=== PATIENT | female | born 1955 | race Caucasian/White ===

== ENCOUNTER → 2020-08-03 13:54 | Outpatient (BNVA) | payer MEDICARE, SELFPAY | PROVIDERS: PCP Internal Medicine; Visit Provider Nurse Practitioner Gerontology | DX: Z13.89 Encounter for screening for other disorder (principal) | CPT/HCPCS: Q3014 ==

== ENCOUNTER → 2020-11-03 10:25 | Outpatient (BNVA) | payer MEDICARE, SELFPAY | PROVIDERS: PCP Internal Medicine; Visit Provider Nurse Practitioner Gerontology ==

== ENCOUNTER 2021-04-27 11:31 | Outpatient (REF) | payer OTHER, SELFPAY ==
[2021-04-27 13:53] LABS: Creatinine Urine 59.08 mg/dL; Microalbumin Urine < 5.0 mg/L
[2021-04-27 13:57] LABS: Alanine Aminotransferase 15 U/L (0-31); Albumin Level 4.3 g/dL (3.5-5.0); Alkaline Phosphatase 70 U/L (39-117); Anion Gap 17 (12-20); Aspartate Amino Transferase 15 U/L (5-31); Bilirubin Total 0.6 mg/dL (0.0-1.0); Blood Urea Nitrogen 15 mg/dL (9-16); Calcium 9.6 mg/dL (8.4-10.2); Carbon Dioxide 33 mmol/L (22-29); Chloride 96 mmol/L (96-108); Cholesterol 160 mg/dL; Estimated Glomerular Filt Rate 48; Glucose Fasting 222 mg/dL (60-99); HDL Cholesterol 58 mg/dL; LDL Cholesterol Calculated 72 mg/dl; Sodium 142 mmol/L (135-145); Total Protein 7.5 g/dL (6.5-8.0); Triglycerides 150 mg/dL
[2021-04-27 14:07] LABS: Estimated Average Glucose 217 mg/dL; Hemoglobin A1c % 9.2 %
[2021-04-29 05:01] LABS: LDL Cholesterol Direct 71 mg/dL (<100)
== END 2021-04-27 11:32 | disposition home or self-care (01) ==
LOC: HO.LAB 11:31
PROVIDERS: PCP Internal Medicine; Visit Provider Nurse Practitioner Gerontology
DX: E11.42 Type 2 diabetes mellitus with diabetic polyneuropathy (principal)
CPT/HCPCS: 36415; 80053; 80061; 82043; 83036; 83721

== ENCOUNTER → 2021-07-02 10:50 | Outpatient (BNVA) | payer OTHER, SELFPAY | PROVIDERS: PCP Internal Medicine; Visit Provider Registered Nurse Diabetes Educator | DX: E11.42 Type 2 diabetes mellitus with diabetic polyneuropathy (principal) | CPT/HCPCS: 99211 ==

== ENCOUNTER → 2021-07-11 11:40 | Outpatient (BNVA) | payer OTHER, SELFPAY | PROVIDERS: PCP Internal Medicine; Visit Provider Nurse Practitioner Gerontology | DX: E11.42 Type 2 diabetes mellitus with diabetic polyneuropathy (principal); E78.5 Hyperlipidemia, unspecified; I10 Essential (primary) hypertension; E66.01 Morbid (severe) obesity due to excess calories; Z68.41 Body mass index [BMI] 40.0-44.9, adult | CPT/HCPCS: 82947; 99212 ==

== ENCOUNTER → 2021-08-01 10:49 | Outpatient (BNVA) | payer OTHER, SELFPAY | PROVIDERS: PCP Internal Medicine; Visit Provider Registered Nurse Diabetes Educator | DX: E11.42 Type 2 diabetes mellitus with diabetic polyneuropathy (principal) | CPT/HCPCS: Q3014 ==

== ENCOUNTER → 2021-08-22 09:01 | Outpatient (BNVA) | payer OTHER, SELFPAY | PROVIDERS: PCP Internal Medicine; Visit Provider Nurse Practitioner Gerontology | DX: E11.42 Type 2 diabetes mellitus with diabetic polyneuropathy (principal); E78.5 Hyperlipidemia, unspecified; E66.01 Morbid (severe) obesity due to excess calories; I10 Essential (primary) hypertension; Z68.41 Body mass index [BMI] 40.0-44.9, adult; Z79.4 Long term (current) use of insulin | CPT/HCPCS: Q3014 ==

== ENCOUNTER → 2021-10-18 11:35 | Outpatient (BNVA) | payer OTHER, SELFPAY | PROVIDERS: PCP Internal Medicine; Visit Provider Nurse Practitioner Gerontology | DX: E11.42 Type 2 diabetes mellitus with diabetic polyneuropathy (principal); E78.5 Hyperlipidemia, unspecified; E66.01 Morbid (severe) obesity due to excess calories; I10 Essential (primary) hypertension; Z68.41 Body mass index [BMI] 40.0-44.9, adult; Z79.4 Long term (current) use of insulin; Z79.84 Long term (current) use of oral hypoglycemic drugs | CPT/HCPCS: 82947; 83036; 99212 ==

== ENCOUNTER 2021-11-10 14:54 | Outpatient (REF) | payer OTHER, SELFPAY ==
--- NOTE | ~2021-11-10 | XR_ITS ---
EXAMINATION: XR SHOULDER, RIGHT CLINICAL INFORMATION: Pain COMPARISON: None TECHNIQUE: Three views of the right shoulder. FINDINGS: Limited views are provided. No definite acute fracture or dislocation is evident. There appears be calcific tendinitis. There is also noted to be some spurring about the acromion. No widening of the coracoclavicular space is seen. There is mild spurring of the glenohumeral joint. Calcific density is seen on Y-view just below the clavicle may be related to bursitis. XR/XR shoulder RT min 2V IMPRESSION: Limited views of the right shoulder without definite acute fracture or dislocation appreciated. Calcific tendinitis. Question calcific bursitis.
--- NOTE | ~2021-11-10 | XR_ITS ---
EXAMINATION: XR CERVICAL SPINE CLINICAL INFORMATION: Cervicalgia COMPARISON: 06/01/2019 TECHNIQUE: 3 views of the cervical spine were obtained. FINDINGS: Visualization below C4 on the lateral view is obscured by the soft tissues of the shoulder. Normal alignment with no fracture demonstrated from C1-C4. Normal alignment of the cervical spine on the AP view. Mild to moderate multilevel spondylosis. XR/XR cervical spine 3V IMPRESSION: Inadequate visualization of the cervical spine below C4. If there is concern of a fracture, a CT would be recommended. Multilevel spondylosis without significant change on the AP view.
== END 2021-11-10 14:55 | disposition home or self-care (01) ==
LOC: HO.HMGCX 14:54
PROVIDERS: PCP Internal Medicine; Visit Provider Physician Assistant Medical
DX: M25.511 Pain in right shoulder (principal); M54.2 Cervicalgia
CPT/HCPCS: 72040; 73030

== ENCOUNTER → 2022-01-09 10:26 | Outpatient (BNVA) | payer OTHER, SELFPAY | PROVIDERS: PCP Internal Medicine; Visit Provider Registered Nurse Diabetes Educator | DX: E11.42 Type 2 diabetes mellitus with diabetic polyneuropathy (principal) | CPT/HCPCS: 99211 ==

== ENCOUNTER → 2022-01-17 11:24 | Outpatient (BNVA) | payer OTHER, SELFPAY | PROVIDERS: PCP Internal Medicine; Visit Provider Nurse Practitioner Gerontology | DX: E11.42 Type 2 diabetes mellitus with diabetic polyneuropathy (principal); E78.5 Hyperlipidemia, unspecified; E66.01 Morbid (severe) obesity due to excess calories; I10 Essential (primary) hypertension; Z68.41 Body mass index [BMI] 40.0-44.9, adult | CPT/HCPCS: 82947; 83036; 99212 ==

== ENCOUNTER → 2022-04-04 12:23 | Outpatient (BNVA) | payer OTHER, SELFPAY | PROVIDERS: PCP Internal Medicine; Visit Provider Registered Nurse Diabetes Educator | DX: E11.42 Type 2 diabetes mellitus with diabetic polyneuropathy (principal) | CPT/HCPCS: 99211 ==

== ENCOUNTER 2022-08-05 10:40 | Outpatient (REF) | payer OTHER, SELFPAY ==
[2022-08-07 16:57] LABS: HPV mRNA E6/E7 rflx Not Detected (Not Detected)
== END 2022-08-05 10:41 | disposition home or self-care (01) ==
LOC: HO.LNP 10:40
PROVIDERS: PCP Internal Medicine; Visit Provider Advanced Practice Midwife
DX: Z12.4 Encounter for screening for malignant neoplasm of cervix (principal); Z11.51 Encounter for screening for human papillomavirus (HPV); N95.0 Postmenopausal bleeding
CPT/HCPCS: 58100; 87624; 88142; 88305; 99202

== ENCOUNTER 2023-02-06 10:45 | Outpatient (AMB) | payer OTHER, SELFPAY ==
[2023-02-06 10:48] VITALS: BP 126/70
--- NOTE | 2023-02-06 10:48 | MHC.OFFVIS ---
Intake Vital Signs 02/06/23 10:48 Height 5 ft 5 in BMI Reason not done Patient refused/unable BP 126/70 Intake Visit Reasons: EMB Intake Note: The patient agreed to use of a medical laboratory assistant during this encounter. Scribed for VERÓNICA Luna by Samantha English medical laboratory assistant, on 02/06/2023 at 11:04 am EST. Shale Planer Operator Helper: Shale Planer Operator Helper Present (Stephany) Accompanied by: Spouse Allergies alprazolam [From XANAX] Allergy (Unknown, Verified 02/06/23 10:48) drowsiness risperidone [From RISPERDAL] Allergy (Unknown, Verified 02/06/23 10:48) drowsiness tramadol [From ULTRAM] Allergy (Unknown, Verified 02/06/23 10:48) n/v HPI HPI Comments History of Present Illness Details The patient is here today for a repeat endometrial biopsy due to sparse sample. Reports VB every month, heavy at times Admits pelvic and bilateral groin pain. See procedure note. PFS Medical History Arthritis Asthma BMI 40.0-44.9, adult Cellulitis CHF (congestive heart failure) Chronic GERD COPD, severe Depression, major, recurrent Fibromyalgia History of hepatitis C History of opioid abuse Hyperlipidemia LDL goal <100 Hypertension, essential Lipid disorder Morbid obesity due to excess calories Oxygen dependent PMB (postmenopausal bleeding) Rheumatoid arthritis Swelling of lower extremity Type 2 diabetes mellitus with diabetic polyneuropathy Type 2 diabetes mellitus with polyneuropathy Surgical History History of section History of hip replacement Hx of mammogram Family History Father No problems noted. Mother No problems noted. Brother Diabetes Son No problems noted. Sister No problems noted. Sister No problems noted. Sister No problems noted. Daughter No problems noted. Daughter No problems noted. Social History Household Members: Spouse Housing: Apartment Alcohol intake: never Patient Tobacco Use Status: Former Tobacco user Quit Date: October 07, 2019 e-Cigarette/Vaping Use: Never Used Second Hand Smoke Exposure: Yes service: No Current occupational status: disabled Cognitive needs: Yes (wheelchair) Hearing needs: No Vision needs: No Female Reproductive History Menstrual Age of Menarche: 13 Physical Exam Vital Signs: Last Vital Signs BP 126/70 02/06/23 10:48 Const General: cooperative, no acute distress, well developed, alert, awake and other (physically uncomfortable-back and hip pain, leg cramps during exam) Resp Effort & Inspection: audible wheezes and other (02 nasal canula) GI Inspection: Yes obesity Other: General: Yes bladder normal to palpation External Female Exam: normal external appearance and normal appearance of the urethra Speculum Exam - Vagina: normal appearance of the vagina, normal palpation and vagina atrophic Speculum Exam - Cervix: normal appearance of the cervix and normal palpation Bimanual exam- vagina & uterus: normal bimanual exam, normal palpation, bladder normal to palpation and normal palpation Bimanual Exam- Adnexa, other: normal adnexae and no masses Extrem Other: limited ROM with right leg/hip. Uncomfortable positioning on table, moaning uncomfortable d/t back, hip, and knee pain. Office Procedures Endometrial Biopsy Details: Endometrial Biopsy HPI The patient is here today for an endometrial biopsy for PMB to rule out any pathology including atypical, hyperplasia or cancer cells of the uterus. She was counseled regarding anticipatory guidance for the procedure including the risks for pain, infection, bleeding, perforation, potential injury to the tissues may include the cervix, uterus, tubes, bladder and bowels. These injuries may include further treatment and evaluation including surgery, blood transfusions, antibiotics, hospitalizations and anesthesia. Permanent injury and scarring can occur. She was consented for the procedure, and the consent forms were signed. She is agreeable to have the procedure today. All questions were answered. present for the procedure. Endometrial Biopsy Procedure The patient was placed in the dorsal lithotomy position and a sterile speculum inserted. Using aseptic technique for the procedure. The cervix was cleansed with Betadine x 3 swabs A single toothed tenaculum was placed on the cervix for stabilization and the uterus was sounded to 6.5 cm with a 4mm pipelle for 2 passes. During the second pass the patient could not tolerate the rest of the procedure and asked to stop. Minimal bleeding was observed. The patient was in good condition when leaving the department. Minimal tissue sample was placed in formalin in a patient labeled container by staff assisting and sent to the pathology department for processing and interpretation. Endometrial Biopsy Post Procedure Care Schedule Pelvic US. Nothing in the vagina including: tampons, douching or sex for 3 days. There may be some post procedure bleeding for several days, this bleeding is usually light and may turn to a light brown or pink color. Mild cramps may occur. You may take an over the counter mild analgesic such as Tylenol or Advil (if no allergies) per the manufacturers recommendation on dosing, frequency, and follow the directions completely. Call the office if any: SOB, fatigue, lightheadedness/dizziness, abd. pain (worse than cramping), bloating or abd. distention, foul odor or abnormal discharge or heavy vaginal bleeding. You will be scheduled for a follow up visit for results, either in person or on the phone when the results are completed in a few weeks. [id number] Biopsy Assessment & Plan Assessment & Plan (1) History of endometrial biopsy: Code(s): Z92.89 - Personal history of other medical treatment Plan: See procedure note. (2) Postmenopausal bleeding: Code(s): N95.0 - Postmenopausal bleeding (3) Pelvic pain: Code(s): R10.2 - Pelvic and perineal pain Orders: Orders US pelvic and transvaginal Today N95.0 - Postmenopausal bleeding, R10.2 - Pelvic and perineal pain Surgical Today N95.0 - Postmenopausal bleeding Coding Level of Care Code Procedure Only Diagnoses History of endometrial biopsy Z92.89 Postmenopausal bleeding N95.0 Pelvic pain R10.2 CPT Codes Endometrial Biopsy - CPT: [id number] Biopsy ([id number])
== END 2023-02-06 11:51 | disposition home or self-care (01) ==
LOC: HO.HWS 10:45
PROVIDERS: PCP Internal Medicine; Visit Provider Advanced Practice Midwife
DX: N95.0 Postmenopausal bleeding (principal); R10.2 Pelvic and perineal pain
CPT/HCPCS: 58100

== ENCOUNTER 2023-02-06 10:45 | Outpatient (REF) | payer OTHER, SELFPAY | END 2023-02-06 10:46 | disposition home or self-care (01) | LOC: HO.LAB 10:45 | PROVIDERS: PCP Internal Medicine; Visit Provider Advanced Practice Midwife | DX: N95.0 Postmenopausal bleeding (principal); Z92.89 Personal history of other medical treatment | CPT/HCPCS: 58100; 88305 ==

== ENCOUNTER 2023-02-27 14:12 | Outpatient (REF) | payer OTHER, SELFPAY ==
--- NOTE | ~2023-02-27 | US_ITS ---
EXAMINATION: US PELVIS CLINICAL INFORMATION: Pelvic and perineal pain. COMPARISON: None available. TECHNIQUE: Ultrasound of the pelvis is performed using both transabdominal and transvaginal transducers along with Doppler. Transvaginal imaging is performed due to inadequate visualization transabdominally. FINDINGS: Limited by patient body habitus. Uterus: The uterus is anteverted and measures 6.3 x 3.1 x 4.7 cm. The endometrial stripe is poorly visualized. The uterus is smooth in contour and demonstrates persistent unremarkable myometrial echogenicity. No gross visible fibroid. Adnexa: The ovaries could not be demonstrated by the technologist. No obvious adnexal mass. No fluid identified in the cul-de-sac. US/US pelvic and transvaginal IMPRESSION: Limited study. Endometrial stripe and ovaries poorly visualized.
== END 2023-02-27 14:13 | disposition home or self-care (01) ==
LOC: HO.HMGCX 14:12
PROVIDERS: PCP Internal Medicine; Visit Provider Advanced Practice Midwife
DX: R10.2 Pelvic and perineal pain (principal); N95.0 Postmenopausal bleeding
CPT/HCPCS: 76830; 76856

== ENCOUNTER 2023-03-05 13:02 | Outpatient (AMB) | payer OTHER, SELFPAY ==
--- NOTE | 2023-03-05 13:03 | MHC.OFFVIS ---
Intake Intake Visit Reasons: TV-ultrasound results/Follow up Intake Note: [phone] The patient agreed to use of a director of graduate medical education during this encounter. Scribed for VERÓNICA Luna by Samantha English director of graduate medical education, on 03/05/2023 at 1:04 pm EST. Allergies alprazolam [From XANAX] Allergy (Unknown, Verified 03/05/23 13:03) drowsiness risperidone [From RISPERDAL] Allergy (Unknown, Verified 03/05/23 13:03) drowsiness tramadol [From ULTRAM] Allergy (Unknown, Verified 03/05/23 13:03) n/v HPI HPI Comments History of Present Illness Details Doximity live video 1:04 pm - 1:07 pm. Phone Call due to Covid-19 Pandemic. Video was utilized. She presents via phone/live video to discuss EMB results regarding PMB. She reports the bleeding is stable, not increased. [facility] Medical History Arthritis Asthma BMI 40.0-44.9, adult Cellulitis CHF (congestive heart failure) Chronic GERD COPD, severe Depression, major, recurrent Fibromyalgia History of hepatitis C History of opioid abuse Hyperlipidemia LDL goal <100 Hypertension, essential Lipid disorder Morbid obesity due to excess calories Oxygen dependent PMB (postmenopausal bleeding) Rheumatoid arthritis Swelling of lower extremity Type 2 diabetes mellitus with diabetic polyneuropathy Type 2 diabetes mellitus with polyneuropathy Surgical History History of section History of hip replacement Hx of mammogram Family History Father No problems noted. Mother No problems noted. Brother Diabetes Son No problems noted. Sister No problems noted. Sister No problems noted. Sister No problems noted. Daughter No problems noted. Daughter No problems noted. Social History Household Members: Spouse Housing: Apartment Alcohol intake: never Patient Tobacco Use Status: Former Tobacco user Quit Date: October 07, 2019 e-Cigarette/Vaping Use: Never Used Second Hand Smoke Exposure: Yes service: No Current occupational status: disabled Cognitive needs: Yes (wheelchair) Hearing needs: No Vision needs: No Female Reproductive History Menstrual Age of Menarche: 13 Physical Exam Const General: cooperative, healthy appearing, comfortable, no acute distress, well developed, alert and awake Results Reviewed Results Reviewed: Collected: 02/06/23 Location: .LAB Received: 02/07/23 Diagnosis Endometrium, biopsy:? Superficial strips of benign endometrium and squamous epithelium; no atypia identified. Clinical History PMB Microscopic Description Microscopic sections reviewed. Material Received EMB Gross Description Received in formalin labeled ?EMB? is a 1.3 x 1.2 x 0.4 cm aggregate of predominantly clear globoid mucus along with minute shards of bruce-pink tissue.? The specimen is submitted in toto in a single cassette labeled A.? Assessment & Plan Assessment & Plan (1) Encounter to discuss test results: Code(s): Z71.2 - Person consulting for explanation of examination or test findings Plan: Discussed: EMB results; benign. Due to PMB, despite a negative biopsy, she will need further evaluation and she prefer's a female provider, which is not availalbe at [facility] [place], Referral to [facility] at [facility] for female provider placed today. All of her questions and concerns were addressed to the best of my ability and shared decision making. She is agreeable to plan of care. (2) PMB (postmenopausal bleeding): Code(s): N95.0 - Postmenopausal bleeding Orders: Referrals LEARNING CENTER COORDINATOR Referral N95.0 - Postmenopausal bleeding Gynecologic Oncology Referral N95.0 - Postmenopausal bleeding Telehealth Telehealth Location of provider rendering services: practice address Location of patient: address on file Patient Identification confirmed using: Name, : Yes Telehealth method: voice only Patient verbally consented to treatment: Yes Patient verbally consented to billing insurance company: Yes Patient informed of any privacy concerns related to visit: Yes Coding Level of Care Code Tele Est Pt Level 3 (25934) Diagnoses Encounter to discuss test results Z71.2 PMB (postmenopausal bleeding) N95.0
== END 2023-03-05 14:36 | disposition home or self-care (01) ==
LOC: HO.HWS 13:02
PROVIDERS: PCP Internal Medicine; Visit Provider Advanced Practice Midwife
DX: N95.0 Postmenopausal bleeding (principal); Z71.2 Person consulting for explanation of examination or test findings
CPT/HCPCS: 99441

== ENCOUNTER → 2023-03-05 13:02 | Outpatient (BNVA) | payer OTHER, SELFPAY | PROVIDERS: PCP Internal Medicine; Visit Provider Advanced Practice Midwife ==

== ENCOUNTER 2023-03-12 13:06 | Outpatient (AMB) | payer OTHER, SELFPAY ==
--- NOTE | 2023-03-12 13:07 | A.OFFPC_ITS ---
Vital Signs 03/12/23 13:11 Height 5 ft 5 in BMI Reason not done Patient refused/unable BP 106/64 Blood Pressure Location Rt brachial Position Sitting Pulse 116 H Pulse Source Pulse Oximeter Pulse Oximetry (%) 93 Oxygen Delivery Method Room Air Intake Visit Reasons: Leg pain Allergies alprazolam [From XANAX] Allergy (Unknown, Verified 03/12/23 13:07) drowsiness risperidone [From RISPERDAL] Allergy (Unknown, Verified 03/12/23 13:07) drowsiness tramadol [From ULTRAM] Allergy (Unknown, Verified 03/12/23 13:07) n/v Medication List - Last Reconciled 03/12/23 by Veronique Rivera MD [accessible bathroom equipment Pt requires bathroom to be accessible due to decreased mobility related to diagnoses] albuterol sulfate 90 mcg/actuation 2 puffs inhalation QID PRN alcohol swabs (Easy Touch Alcohol Prep Pads) topical; atorvastatin 40 mg PO DAILY 90 days blood sugar diagnostic (FreeStyle Lite Strips) 2x/day As directed blood-glucose meter (FreeStyle Lite Meter kit) As directed buprenorphine-naloxone 8-2 mg 0 film sublingual buspirone 15 mg PO BID cholecalciferol (vitamin D3) 25 mcg PO DAILY clotrimazole-betamethasone 1-0.05 % 1 appl topical ONCE 30 days dapagliflozin propanediol (Farxiga) 5 mg PO DAILY duloxetine 30 mg PO QAM duloxetine 60 mg PO DAILY dupilumab (Dupixent) mg subcut rdlrufucjkf-kyyjcwfgh-cihjuxxb 200-62.5-25 mcg (Trelegy Ellipta) 1 ea inhalation DAILY furosemide 40 mg PO DAILY gabapentin 600 mg PO TID 30 days [hand held shower head, geriatric mode As directed] hydrochlorothiazide 25 mg PO DAILY insulin glargine (Lantus Solostar U-100 Insulin) 18 units (0.18 mL) subcut QPM 90 days ipratropium-albuterol 0.5 mg-3 mg(2.5 mg base)/3 mL mL inhalation lancets (1st Tier Unilet ComforTouch Lancet) As directed [large pull up/adult diaper Change diaper 3 times a day or as needed for inco ntinence] lorazepam 1 mg PO TID PRN melatonin 5 mg PO BEDTIME PRN 30 days metformin 1,000 mg (2 x 500 mg) PO DAILY miscellaneous medical supply As directed pantoprazole 40 mg PO DAILY 90 days pen needle, diabetic (BD Ultra-Fine Tamia Pen Needle) As directed once daily roflumilast 500 mcg PO DAILY sennosides-docusate sodium 8.6-50 mg (Senokot-S) 1 tab-cap PO BEDTIME 30 days [Shower bars As directed; shower bars ] [Shower head As directed; removable shower head/hose] [Toilet riser As directed] [Tub Bench As directed] [Walk-in shower As directed; walk in shower ] Tobacco use date assessed: 03/12/23 Last assessed Fall Risk: 03/12/23 Dental Screening Dental Screen Date: 03/12/23 Did you have a dental problem in the last 6 months where you did not have access to dental care?: No Was dental information given to patient?: No HPI Leg pain HPI Details Patient is a 67-year-old female came in today for her regular follow-up appointment Patient is mostly sedentary and comes on a wheelchair She has severe fibromyalgia and feels discomfort with slight pressure on her body Patient is complaining pain both knees she is requesting an orthopedic referral she would like to get a cortisone injection Meanwhile she is requesting few tablets of prednisone which I have sent for her. Diabetes mellitus: Hemoglobin A1c was 6.7, today it is 6.6 last visit in November, patient is on insulin glargine 18 units in the morning, he she would like to go on Ozempic injections which I have sent the smallest dozed meanwhile I have asked her to cut down glargine insulin dose to 10 units and continue to monitor the sugar. I will also book appointment with the dietitian for diabetic teachings Lipid disorder: Continue atorvastatin 40 mg Anxiety: Patient is on buspirone 15 mg b.i.d. and duloxetine high does Severe COPD: Management through litigation specialist, patient is oxygen dependent Chronic stasis dermatitis lower extremity patient is taking frusemide 40 mg which is keeping her a edema in controlled Chronic pain syndrome with multiple joint stiffness and pain, continue gabapentin 600 mg t.i.d. through PCP office, she also request prednisone every now and then because that is only medication that helps her with the joint pains Blood pressure is stable she is to continue with hydrochlorothiazide 25 mg GERD is stable with pantoprazole 40 mg Follow-up 3 months [facility] Medical History Arthritis Asthma BMI 40.0-44.9, adult Cellulitis CHF (congestive heart failure) Chronic GERD COPD, severe Depression, major, recurrent Fibromyalgia History of hepatitis C History of opioid abuse Hyperlipidemia LDL goal <100 Hypertension, essential Lipid disorder Morbid obesity due to excess calories Oxygen dependent PMB (postmenopausal bleeding) Rheumatoid arthritis Swelling of lower extremity Type 2 diabetes mellitus with diabetic polyneuropathy Type 2 diabetes mellitus with polyneuropathy Surgical History History of section History of hip replacement Hx of mammogram Family History Father No problems noted. Mother No problems noted. Brother Diabetes Son No problems noted. Sister No problems noted. Sister No problems noted. Sister No problems noted. Daughter No problems noted. Daughter No problems noted. Social History Household Members: Spouse Housing: Apartment Alcohol intake: never Patient Tobacco Use Status: Former Tobacco user Quit Date: October 07, 2019 e-Cigarette/Vaping Use: Never Used Second Hand Smoke Exposure: Yes service: No Current occupational status: disabled Cognitive needs: Yes (wheelchair) Hearing needs: No Vision needs: No Female Reproductive History Menstrual Age of Menarche: 13 Questionnaire PHQ-9 Over the last 2 weeks, how often have you been bothered by any of the following problems? 1. Little interest or pleasure in doing things: not at all 2. Feeling down, depressed, or hopeless: nearly every day 3. Trouble falling or staying asleep, or sleeping too much: not at all 4. Feeling tired or having little energy: not at all 5. Poor appetite or overeating: not at all 6. Feeling bad about yourself - or that you are a failure or have let yourself or your family down: not at all 7. Trouble concentrating on things, such as reading the newspaper or watching television: not at all 8. Moving or speaking so slowly that other people could have noticed. Or the opposite - being so fidgety or restless that you have been moving around a lot more than usual: not at all 9. Thoughts that you would be better off or of hurting yourself in some way: not at all Total score: 3 Depression Screening Interpretation: Negative 80280 - PHQ-9 Billing: Yes Source: Developed by Drs. Luis Lema, Jagruti Lovett, Rolando Romero and colleagues, with an educational tish from [employer]. Thrive Questionnaire Date Thrive assessed: 12/03/22 AUDIT C Alcohol Use Questionnaire (AUDIT-C) 1. How often do you have a drink containing alcohol?: Never 3. How often do you have six or more drinks on one occasion?: Never Total Score: 0 Score Reviewed/Action Taken: Yes WILIAM-7 AMB Questionnaire WILIAM-7 Date WILIAM - 7 assessed: 12/03/22 Source: Developed by Drs. Luis Lema, Jagruti Lovett, Rolando Romero and colleagues, with an educational tish from [employer]. Review of Systems Const Denies chills and Denies fever(s) ENT Denies epistaxis and Denies nasal discharge Card Denies chest pain Resp Denies chest congestion, Denies cough and Denies hemoptysis GI Denies diarrhea and Denies nausea Skin/Breast Denies rash Neuro Reports no additional complaints Psych Reports no additional complaints Endo Reports no additional complaints Physical exam (Primary Care) Vital Signs: Last Vital Signs Pulse 116 H 03/12/23 13:11 BP 106/64 03/12/23 13:11 Pulse Ox 93 03/12/23 13:11 Oxygen Delivery Method Room Air 03/12/23 13:11 Tobacco/Smoking Status: Tobacco use Status Tobacco use date assessed 03/12/23 03/12/23 13:11 Patient Tobacco Use Status Former Tobacco user 03/12/23 13:11 e-Cigarette/Vaping Use Never Used 03/12/23 13:11 Depression Screening Interpretation: Negative Thrive Assessment: Date of Thrive Assessment Date Thrive assessed 12/03/22 03/12/23 13:11 Const General: cooperative, comfortable and no acute distress Orientation/consciousness: patient oriented x3 HENMT Head: Yes normocephalic Eyes General: appearance normal, both eyes and all related structures Resp Other: Oxygen cannula in nose Effort & Inspection: normal respiratory effort, no cough and no stridor Cardio Rhythm: regular rhythm Heart sounds: S1 normal heart sound present and S2 normal heart sound present Skin Other: Chronic stasis dermatitis lower extremity General skin exam: turgor normal Neuro Other: Sitting in wheelchair, patient also have a body tremor which gets worse when she is anxious, more so in right hand General: patient oriented x3, tone normal and moves all extremities Extrem Other: 1+ pitting edema with chronic status dermatitis right more than left Assessment and Plan Assessment & Plan (1) Type 2 diabetes mellitus with polyneuropathy: Code(s): E11.42 - Type 2 diabetes mellitus with diabetic polyneuropathy (2) Multiple joint pain: Code(s): M25.50 - Pain in unspecified joint (3) COPD, severe: Code(s): J44.9 - Chronic obstructive pulmonary disease, unspecified (4) Venous stasis dermatitis: Code(s): I87.2 - Venous insufficiency (chronic) (peripheral) (5) Edema of both feet: Code(s): R60.0 - Localized edema (6) Difficulty walking: Code(s): R26.2 - Difficulty in walking, not elsewhere classified (7) Morbid obesity due to excess calories: Code(s): E66.01 - Morbid (severe) obesity due to excess calories (8) Hypertension, essential: Code(s): I10 - Essential (primary) hypertension (9) Lipid disorder: Code(s): E78.9 - Disorder of lipoprotein metabolism, unspecified (10) Oxygen dependent: Code(s): Z99.81 - Dependence on supplemental oxygen (11) Depression, major, recurrent: Code(s): F33.9 - Major depressive disorder, recurrent, unspecified (12) Chronic pain syndrome: Code(s): G89.4 - Chronic pain syndrome (13) Coarse tremors: Code(s): G25.2 - Other specified forms of tremor (14) Degenerative arthritis of knee, bilateral: Code(s): M17.0 - Bilateral primary osteoarthritis of knee Plan Patient is a 67-year-old female came in today for her regular follow-up appointment Patient is mostly sedentary and comes on a wheelchair She has severe fibromyalgia and feels discomfort with slight pressure on her body Patient is complaining pain both knees she is requesting an orthopedic referral she would like to get a cortisone injection Meanwhile she is requesting few tablets of prednisone which I have sent for her. Diabetes mellitus: Hemoglobin A1c was 6.7, today it is 6.6 last visit in November, patient is on insulin glargine 18 units in the morning, he she would like to go on Ozempic injections which I have sent the smallest dozed meanwhile I have asked her to cut down glargine insulin dose to 10 units and continue to monitor the sugar. I will also book appointment with the dietitian for diabetic teachings Lipid disorder: Continue atorvastatin 40 mg Anxiety: Patient is on buspirone 15 mg b.i.d. and duloxetine high does Severe COPD: Management through litigation specialist, patient is oxygen dependent Chronic stasis dermatitis lower extremity patient is taking frusemide 40 mg whic h is keeping her a edema in controlled Chronic pain syndrome with multiple joint stiffness and pain, continue gabapentin 600 mg t.i.d. through PCP office, she also request prednisone every now and then because that is only medication that helps her with the joint pains Blood pressure is stable she is to continue with hydrochlorothiazide 25 mg GERD is stable with pantoprazole 40 mg Follow-up 3 months Orders: Referrals Orthopedics Referral M17.0 - Bilateral primary osteoarthritis of knee Medications: New semaglutide (Ozempic) for 4 weeks 0.25 mg (0.368 mL) subcut QWEEK 3 mL 0RF prednisone 10 mg PO DAILY 5 days 5 tabs 0RF Coding Level of Care Code Est Pt Level 4 (47957) Diagnoses Type 2 diabetes mellitus with polyneuropathy E11.42 Multiple joint pain M25.50 COPD, severe J44.9 Venous stasis dermatitis I87.2 Edema of both feet R60.0 Difficulty walking R26.2 Morbid obesity due to excess calories E66.01 Hypertension, essential I10 Lipid disorder E78.9 Oxygen dependent Z99.81 Depression, major, recurrent F33.9 Chronic pain syndrome G89.4 Coarse tremors G25.2 Degenerative arthritis of knee, bilateral M17.0
[2023-03-12 13:11] VITALS: BP 106/64; PULSE 116; O2SAT 93
== END 2023-03-12 13:38 | disposition home or self-care (01) ==
PROVIDERS: PCP Internal Medicine; Visit Provider Internal Medicine
DX: E11.42 Type 2 diabetes mellitus with diabetic polyneuropathy (principal); J44.9 Chronic obstructive pulmonary disease, unspecified; E66.01 Morbid (severe) obesity due to excess calories; I10 Essential (primary) hypertension; F33.9 Major depressive disorder, recurrent, unspecified; M25.50 Pain in unspecified joint; I87.2 Venous insufficiency (chronic) (peripheral); R60.0 Localized edema; R26.2 Difficulty in walking, not elsewhere classified; E78.9 Disorder of lipoprotein metabolism, unspecified; Z99.81 Dependence on supplemental oxygen
CPT/HCPCS: 99214

== ENCOUNTER 2023-04-07 15:26 | Outpatient (AMB) | payer OTHER, SELFPAY ==
[2023-04-07 16:15] VITALS: BP 128/62; PULSE 79; O2SAT 94
--- NOTE | 2023-04-07 16:15 | AM.OFFWIN_ITS ---
Intake Vital Signs 04/07/23 16:15 Height 5 ft 5 in BMI Reason not done Patient refused/unable BP 128/62 Blood Pressure Location Rt brachial Position Sitting Pulse 79 Pulse Source Pulse Oximeter Pulse Oximetry (%) 94 Oxygen Delivery Method Nasal Cannula Intake Visit Reasons: EP Bilateral leg pain Intake Note: Patient is here today for bilateral leg pain, pt states it's getting worst. Patient Tobacco Use Status: Former Tobacco user Quit Date: October 07, 2019 Allergies alprazolam [From XANAX] Allergy (Unknown, Verified 04/07/23 16:44) drowsiness risperidone [From RISPERDAL] Allergy (Unknown, Verified 04/07/23 16:44) drowsiness tramadol [From ULTRAM] Allergy (Unknown, Verified 04/07/23 16:44) n/v Medication List - Last Reconciled 04/07/23 by El Cruz MD albuterol sulfate 90 mcg/actuation 2 puffs inhalation QID PRN alcohol swabs (Easy Touch Alcohol Prep Pads) topical; atorvastatin 40 mg PO DAILY 90 days blood sugar diagnostic (FreeStyle Lite Strips) 2x/day As directed blood-glucose meter (FreeStyle Lite Meter kit) As directed buprenorphine-naloxone 8-2 mg 2 film sublingually BID; +.5 (total 2.5 film) at night buspirone 15 mg PO BID clotrimazole-betamethasone 1-0.05 % 1 appl topical ONCE 30 days dapagliflozin propanediol (Farxiga) 5 mg PO DAILY duloxetine 60 mg PO DAILY duloxetine 30 mg PO QAM dupilumab (Dupixent) 200 mg subcut Q2W oujykhnlyvn-twkomjgzy-ufzmxjzs 200-62.5-25 mcg (Trelegy Ellipta) 1 ea inhalation DAILY furosemide 40 mg PO DAILY gabapentin 600 mg PO TID 30 days hydrochlorothiazide 25 mg PO DAILY insulin glargine (Lantus Solostar U-100 Insulin) 10 units subcut QPM ipratropium-albuterol 0.5 mg-3 mg(2.5 mg base)/3 mL 3 mL inhalation TID lancets (1st Tier Unilet ComforTouch Lancet) As directed lorazepam 1 mg PO TID PRN metformin 1,000 mg (2 x 500 mg) PO DAILY Oxygen Home Use 3LPM continuous via [place] pantoprazole 40 mg PO DAILY 90 days pen needle, diabetic (BD Ultra-Fine Tamia Pen Needle) As directed once daily semaglutide (Ozempic) 0.25 mg (0.368 mL) subcut QWEEK sennosides-docusate sodium 8.6-50 mg (Senokot-S) 1 tab-cap PO BEDTIME 30 days [X-Large pull up/adult diaper Change diaper 3 times a day or as needed for incontinence] Do you need a note to return to daycare/school/sports/work: No HPI EP Bilateral leg pain HPI Details 67-year-old female presents to the [facility], [place] for a sick visit. She comes in a wheelchair. She is accompanied by a male attendant. Patient is complaining of pain in right and left legs. This has been going on intermittently for for the past few months. She has sharp pain behind the knee and times. She has been wheelchair-bound for the last couple months. Because of the pain in the knee she ambulates very little. [facility] Medical History Arthritis Asthma BMI 40.0-44.9, adult Cellulitis CHF (congestive heart failure) Chronic GERD COPD, severe Depression, major, recurrent Fibromyalgia History of hepatitis C History of opioid abuse Hyperlipidemia LDL goal <100 Hypertension, essential Lipid disorder Morbid obesity due to excess calories Oxygen dependent PMB (postmenopausal bleeding) Rheumatoid arthritis Swelling of lower extremity Type 2 diabetes mellitus with diabetic polyneuropathy Type 2 diabetes mellitus with polyneuropathy Surgical History History of section History of hip replacement Hx of mammogram Family History Father No problems noted. Mother No problems noted. Brother Diabetes Son No problems noted. Sister No problems noted. Sister No problems noted. Sister No problems noted. Daughter No problems noted. Daughter No problems noted. Social History Household Members: Spouse Housing: Apartment Alcohol intake: never Patient Tobacco Use Status: Former Tobacco user Quit Date: October 07, 2019 e-Cigarette/Vaping Use: Never Used Second Hand Smoke Exposure: Yes service: No Current occupational status: disabled Cognitive needs: Yes (wheelchair) Hearing needs: No Vision needs: No Female Reproductive History Menstrual Age of Menarche: 13 Physical Exam Vital Signs: Last Vital Signs Pulse 79 04/07/23 16:15 BP 128/62 04/07/23 16:15 Pulse Ox 94 04/07/23 16:15 Oxygen Delivery Method Nasal Cannula 04/07/23 16:15 Const General: cooperative and healthy appearing Nutritional Appearance: well nourished Orientation/consciousness: patient oriented x3 Limitations: no limitations HEENT Head: Yes normal to inspection Eyes General: appearance normal, both eyes and all related structures Neck Neck: Yes normal visual inspection Chest Chest palpation & inspection: normal palpation of entire chest wall Resp Effort & Inspection: normal respiratory effort Neuro General: patient oriented x3 Extrem Other: Right and left lower extremity: Erythematous area over the curran, indurated edema. Assessment & Plan Assessment & Plan (1) Deep vein thrombosis: Code(s): I82.409 - Acute embolism and thrombosis of unspecified deep veins of unspecified lower extremity (2) Cellulitis of leg without foot: Code(s): L03.119 - Cellulitis of unspecified part of limb Plan: Antibiotic and meloxicam called in. Patient was advised to keep the foot elevated. Plan Ultrasound of the leg ordered. Will call with the results. Orders: Orders US venous duplex LE RT Today I82.409 - Acute embolism and thrombosis of unspecified deep veins of unspecified lower extremity Coding Level of Care Code Est Pt Level 4 (92812) Diagnoses Deep vein thrombosis I82.409 Cellulitis of leg without foot L03.119
== END 2023-04-07 17:15 | disposition home or self-care (01) ==
PROVIDERS: PCP Internal Medicine; Visit Provider Internal Medicine
DX: I82.409 Acute embolism and thrombosis of unspecified deep veins of unspecified lower extremity (principal); L03.119 Cellulitis of unspecified part of limb
CPT/HCPCS: 99214

== ENCOUNTER 2023-04-08 15:07 | Outpatient (REF) | payer OTHER, SELFPAY ==
--- NOTE | ~2023-04-08 | US_ITS ---
EXAMINATION: US VENOUS ULTRASOUND WITH DOPPLER LOWER EXTREMITY, RIGHT CLINICAL INFORMATION: Right leg edema and discoloration COMPARISON: None available. TECHNIQUE: Ultrasound of the deep veins is performed from the hip to the calf with compression sonography and color and pulse Doppler assessment. Spectral analysis with color-flow imaging is performed. FINDINGS: There is normal venous compression and respiratory variation and augmented flow. The visualized common femoral vein, superficial femoral vein, profunda femoral vein, popliteal vein, and the trifurcation region shows no evidence of deep venous thrombosis. There is no significant popliteal fossa cyst. If the patient's symptoms persist, followup ultrasound in 5 days 7 days might be of value to exclude proximal propagation from a non-visualized calf vein. 3.2 x 2.1 x 0.5 cm right groin lymph node is seen. US/US venous duplex LE RT IMPRESSION: No DVT demonstrated in the right lower extremity.
== END 2023-04-08 15:08 | disposition home or self-care (01) ==
LOC: HO.HMGCX 15:07
PROVIDERS: PCP Internal Medicine; Visit Provider Internal Medicine
DX: I82.401 Acute embolism and thrombosis of unspecified deep veins of right lower extremity (principal)
CPT/HCPCS: 93971

== ENCOUNTER 2023-04-21 14:46 | Outpatient (AMB) | payer OTHER, SELFPAY ==
--- NOTE | 2023-04-21 14:55 | MHC.OFFWIV ---
Intake Vital Signs 04/21/23 14:56 Height 5 ft 5 in BMI Reason not done Patient refused/unable BP 128/78 Blood Pressure Location Rt brachial Position Sitting Pulse 102 H Pulse Source Pulse Oximeter Temp 97.6 F Temp Source Temporal Artery Scan Pulse Oximetry (%) 90 L Intake Visit Reasons: EST/leg issues Intake Note: pt is here for c/o leg issues Patient Tobacco Use Status: Former Tobacco user Quit Date: October 07, 2019 Allergies alprazolam [From XANAX] Allergy (Unknown, Verified 04/21/23 16:10) drowsiness risperidone [From RISPERDAL] Allergy (Unknown, Verified 04/21/23 16:10) drowsiness tramadol [From ULTRAM] Allergy (Unknown, Verified 04/21/23 16:10) n/v Medication List - Last Reconciled 04/21/23 by El Cruz MD albuterol sulfate 90 mcg/actuation 2 puffs inhalation QID PRN alcohol swabs (Easy Touch Alcohol Prep Pads) topical; atorvastatin 40 mg PO DAILY 90 days blood sugar diagnostic (FreeStyle Lite Strips) 2x/day As directed blood-glucose meter (FreeStyle Lite Meter kit) As directed buprenorphine-naloxone 8-2 mg 2 film sublingually BID; +.5 (total 2.5 film) at night buspirone 15 mg PO BID clotrimazole-betamethasone 1-0.05 % 1 appl topical ONCE 30 days dapagliflozin propanediol (Farxiga) 5 mg PO DAILY duloxetine 60 mg PO DAILY duloxetine 30 mg PO QAM dupilumab (Dupixent) 200 mg subcut Q2W cbkrzafgfym-sfgrlzhel-yuqizxku 200-62.5-25 mcg (Trelegy Ellipta) 1 ea inhalation DAILY furosemide 40 mg PO DAILY gabapentin 600 mg PO TID 30 days hydrochlorothiazide 25 mg PO DAILY insulin glargine (Lantus Solostar U-100 Insulin) 10 units (0.1 mL) subcut QPM ipratropium-albuterol 0.5 mg-3 mg(2.5 mg base)/3 mL 3 mL inhalation TID lancets (1st Tier Unilet ComforTouch Lancet) As directed lorazepam 1 mg PO TID PRN meloxicam 15 mg PO DAILY metformin 1,000 mg (2 x 500 mg) PO DAILY Oxygen Home Use 3LPM continuous via NC pantoprazole 40 mg PO DAILY 90 days pen needle, diabetic (BD Ultra-Fine Tamia Pen Needle) As directed once daily semaglutide (Ozempic) 0.25 mg (0.368 mL) subcut QWEEK sennosides-docusate sodium 8.6-50 mg (Senokot-S) 1 tab-cap PO BEDTIME 30 days [X-Large pull up/adult diaper Change diaper 3 times a day or as needed for incontinence] Do you need a note to return to daycare/school/sports/work: Yes HPI EST/leg issues HPI Details 67-year-old female presents to the office for a sick visit. She was asked to come back for evaluation of her right leg. Patient is wheelchair-bound, I saw her on April 07 in bed she complained of swelling and pain in her lower extremity. She was diagnosed with cellulitis and started on 10 day course of antibiotics. Subsequently she had an ultrasound of her right lower extremity and DVT was ruled out. After my office visit, patient was seen by a bicycle fitter at [facility] on FridayApril 18. He noted the redness in the right leg and ordered blood work. The white count was slightly elevated and patient was referred here for an evaluation. She reports no change in the appearance of her leg since the antibiotic. Patient continues to have discomfort especially around the right knee and behind the knee. She does not ambulate much. FORMERLY [facility], [facility] Medical History Arthritis Asthma BMI 40.0-44.9, adult Cellulitis CHF (congestive heart failure) Chronic GERD COPD, severe Depression, major, recurrent Fibromyalgia History of hepatitis C History of opioid abuse Hyperlipidemia LDL goal <100 Hypertension, essential Lipid disorder Morbid obesity due to excess calories Oxygen dependent PMB (postmenopausal bleeding) Rheumatoid arthritis Swelling of lower extremity Type 2 diabetes mellitus with diabetic polyneuropathy Type 2 diabetes mellitus with polyneuropathy Surgical History History of section History of hip replacement Hx of mammogram Family History Father No problems noted. Mother No problems noted. Brother Diabetes Son No problems noted. Sister No problems noted. Sister No problems noted. Sister No problems noted. Daughter No problems noted. Daughter No problems noted. Social History Household Members: Spouse Housing: Apartment Alcohol intake: never Patient Tobacco Use Status: Former Tobacco user Quit Date: October 07, 2019 e-Cigarette/Vaping Use: Never Used Second Hand Smoke Exposure: Yes service: No Current occupational status: disabled Cognitive needs: Yes (wheelchair) Hearing needs: No Vision needs: No Female Reproductive History Menstrual Age of Menarche: 13 Physical Exam Vital Signs: Last Vital Signs Temp 97.6 F 04/21/23 14:56 Pulse 102 H 04/21/23 14:56 BP 128/78 04/21/23 14:56 Pulse Ox 90 L 04/21/23 14:56 Extrem Other: Right lower extremity: Erythema over the curran. No vesicles or pustules. Similar appearance to her last office visit. Assessment & Plan Assessment & Plan (1) Cellulitis of leg without foot: Code(s): L03.119 - Cellulitis of unspecified part of limb Plan: Currently patient does not need another round of antibiotics. She is scheduled to see the orthopedic doc for a possible steroid injection on Friday. If her pain symptoms improved that would help her ambulate and exercise. This would reduce the swelling and improve circulation in the right lower leg. In my opinion, she does not need another round of antibiotics. Patient has to follow-up with the orthopedic physician and her primary care provider. Coding Level of Care Code Est Pt Level 3 (40785) Diagnoses Cellulitis of leg without foot L03.119
[2023-04-21 14:56] VITALS: BP 128/78; PULSE 102; TEMP 36.4; O2SAT 90
== END 2023-04-21 16:04 | disposition home or self-care (01) ==
PROVIDERS: PCP Internal Medicine; Visit Provider Internal Medicine
DX: L03.119 Cellulitis of unspecified part of limb (principal)
CPT/HCPCS: 99213

== ENCOUNTER 2023-04-24 09:28 | Outpatient (REF) | payer OTHER, SELFPAY | END 2023-04-24 09:29 | disposition home or self-care (01) | LOC: HO.HOSX 09:28 | PROVIDERS: Visit Provider Physician Assistant | DX: Z13.89 Encounter for screening for other disorder (principal) ==

== ENCOUNTER 2023-04-29 13:46 | Outpatient (AMB) | payer OTHER, SELFPAY ==
[2023-04-29 13:49] VITALS: BMI 27.3
--- NOTE | 2023-04-29 13:49 | MHC.OFFVIS ---
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 Patient reports ongoing pain for many years. She states that her pain is on the top of both knees and it radiates up to her groin area. Her left knee is worse than the right knee. Patient has tried PT and knee braces with no relief. 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 The patient reports ongoing pain for many years. She claims her pain is on the top of her bilateral knees that radiates to her groin area. She states the left knee is worse then the right knee. She confirms attending physical therapy and use of knee braces with no relief. Of note: She is currently being [facility] for cellulitis, which was first treated on 04/07/2023, in the right lower extremity. Patient has a significant medical history of diabetes mellitus, type 2. COUNTS INCLUDE 234 BEDS AT THE [facility] Medical History Arthritis Asthma BMI 40.0-44.9, adult Cellulitis CHF (congestive heart failure) Chronic GERD COPD, severe Depression, major, recurrent Fibromyalgia History of hepatitis C History of opioid abuse Hyperlipidemia LDL goal <100 Hypertension, essential Lipid disorder Morbid obesity due to excess calories Oxygen dependent PMB (postmenopausal bleeding) Rheumatoid arthritis Swelling of lower extremity Type 2 diabetes mellitus with diabetic polyneuropathy Type 2 diabetes mellitus with polyneuropathy Surgical History History of section History of hip replacement Hx of mammogram Family History Father No problems noted. Mother No problems noted. Brother Diabetes Son No problems noted. Sister No problems noted. Sister No problems noted. Sister No problems noted. Daughter No problems noted. Daughter No problems noted. Social History Household Members: Spouse Housing: Apartment Alcohol intake: never Patient Tobacco Use Status: Former Tobacco user Quit Date: October 07, 2019 e-Cigarette/Vaping Use: Never Used Second Hand Smoke Exposure: Yes service: No Current occupational status: disabled Cognitive needs: Yes (wheelchair) Hearing needs: No Vision needs: No Female Reproductive History Menstrual Age of Menarche: 13 Review of Systems Const All systems reviewed & are unremarkable except as noted in HPI and below Physical Exam Vital Signs: BMI result Body Mass Index 27.3 Extrem Other: Bilateral lower extremity: Are cellulitic. Anterior aspect of the tibia, about mid shaft medial has a small open abrasion that is actively weeping. Bilateral knees: Normal to inspection. No ecchymosis, erythema, or joint effusion. No tenderness to palpation to the medial or lateral joint lines. Full knee extension and flexion. NVI. Office Procedures Joint Injection/Drain Joint Injection/Drain Primary Site: right knee Secondary Site: left knee Prep: site was prepped using aseptic technique, ethochloride spray was applied and injection warnings given Injected: 40 mg of, with 8 mL of (2% plain lido ) and in the joint Approach Used: anterolateral Procedure: The patient tolerated the procedure well, but had some pain with the injection and there was some relief with the local anesthesia Coding 45176 - Large joint Procedure code (CPT) selection complete Results Reviewed Results Reviewed: 04/29/23 14:20 Lidocaine HCl 2 % MPF [Xylocaine 2 % MPF] 5 ml .ROUTE .STK-MED ONE methylPREDNISolone acetate [DEPO-MedroL] 40 mg .ROUTE .STK-MED ONE Assessment & Plan Assessment & Plan (1) Osteoarthritis of right knee: Code(s): M17.11 - Unilateral primary osteoarthritis, right knee Qualifiers: Osteoarthritis type: unspecified Qualified Code(s): M17.11 - Unilateral primary osteoarthritis, right knee (2) Osteoarthritis of left knee: Code(s): M17.12 - Unilateral primary osteoarthritis, left knee Qualifiers: Osteoarthritis type: unspecified Qualified Code(s): M17.12 - Unilateral primary osteoarthritis, left knee Plan Ms. Munoz is a 67-year-old female who presents in the office today, as a new patient, for an evaluation of bilateral knee pain. The patient reports ongoing pain for many years. She claims her pain is on the top of her bilateral knees that radiates to her groin area. She states the left knee is worse then the right knee. She confirms attending physical therapy and use of knee braces with no relief. Of note: She is currently being treated by [facility] for cellulitis, which was first treated on 04/07/2023, in the right lower extremity. Patient has a significant medical history of diabetes mellitus, type 2. The patient was offered a cortisone injection in the bilateral knees with 40 mg of DepoMedrol. The patient was explained the risk, benefits, and alternatives to receiving this injection. After receiving consent for the injection, the patient had the procedure done while in office today. The patient tolerated the procedure well with no complications. Due to the patient?s history of diabetes, they were instructed to monitor her blood glucose level. The patient was informed that they could see a rise in their numbers and if the numbers became too high, they were instructed to call their PCP. The patient was also informed that they could have facial flushing as a side effect of the injection but this will pass. The patient will follow up with her PCP for further treatment of the bilateral lower extremity cellulitis. Follow up will orthopedics will be PRN, or sooner if needed. X-rays of the bilateral knees obtained while in the office today and reviewed by me, Angela Tuttle PA-C, revealed bilateral osteoarthritis. Orders: Orders XR knee standing BI 04/29/23 M25.569 - Pain in unspecified knee Patient Instructions: Scribed for Angela Tuttle PA-C by jossie Wilson scribe, on 04/29/2023 at 1:50 pm, EST. Coding Level of Care Code New Pt Level 4 (31219) Diagnoses Osteoarthritis of right knee, unspecified osteoarthritis type M17.11 Osteoarthritis type: unspecified Osteoarthritis of left knee, unspecified osteoarthritis type M17.12 Osteoarthritis type: unspecified CPT Codes Coding - 65709 Large joint: 05266 - Large joint ([id number])
== END 2023-04-29 14:42 | disposition home or self-care (01) ==
PROVIDERS: PCP Internal Medicine; Visit Provider Physician Assistant
DX: M17.0 Bilateral primary osteoarthritis of knee (principal)
CPT/HCPCS: 20610; 99204

== ENCOUNTER → 2023-04-29 13:46 | Outpatient (BNVA) | payer OTHER, SELFPAY | PROVIDERS: PCP Internal Medicine; Visit Provider Physician Assistant | DX: M17.0 Bilateral primary osteoarthritis of knee (principal) | CPT/HCPCS: 20610; 73562; 99202; J1020 ==

== ENCOUNTER 2023-05-13 14:50 | Outpatient (AMB) | payer OTHER, SELFPAY ==
--- NOTE | 2023-05-13 14:49 | A.OFFPC_ITS ---
Vital Signs 05/13/23 14:52 Height 5 ft 8 in BMI Reason not done Patient refused/unable BP 130/74 Blood Pressure Location Lt brachial Position Sitting Pulse 96 Pulse Source Pulse Oximeter Pulse Oximetry (%) 97 Oxygen Delivery Method Nasal Cannula Intake Visit Reasons: Diabetes~3mos follow up Allergies alprazolam [From XANAX] Allergy (Unknown, Verified 05/13/23 14:52) drowsiness risperidone [From RISPERDAL] Allergy (Unknown, Verified 05/13/23 14:52) drowsiness tramadol [From ULTRAM] Allergy (Unknown, Verified 05/13/23 14:52) n/v Medication List - Last Reconciled 05/13/23 by Veronique Rivera MD albuterol sulfate 90 mcg/actuation 2 puffs inhalation QID PRN alcohol swabs (Easy Touch Alcohol Prep Pads) topical; atorvastatin 40 mg PO DAILY 90 days blood sugar diagnostic (FreeStyle Lite Strips) 2x/day As directed blood-glucose meter (FreeStyle Lite Meter kit) As directed buprenorphine-naloxone 8-2 mg 2 film sublingually BID; +.5 (total 2.5 film) at night buspirone 15 mg PO BID clotrimazole-betamethasone 1-0.05 % 1 appl topical ONCE 30 days dapagliflozin propanediol (Farxiga) 5 mg PO DAILY duloxetine 60 mg PO DAILY duloxetine 30 mg PO QAM dupilumab (Dupixent) 200 mg subcut Q2W ttegtgpighn-xurhxpdat-cuzphvsp 200-62.5-25 mcg (Trelegy Ellipta) 1 ea inhalation DAILY furosemide 40 mg PO DAILY gabapentin 600 mg PO TID 30 days hydrochlorothiazide 25 mg PO DAILY insulin glargine (Lantus Solostar U-100 Insulin) 10 units (0.1 mL) subcut QPM ipratropium-albuterol 0.5 mg-3 mg(2.5 mg base)/3 mL 3 mL inhalation TID lancets (1st Tier Unilet ComforTouch Lancet) As directed lorazepam 1 mg PO TID PRN meloxicam 15 mg PO DAILY metformin 1,000 mg (2 x 500 mg) PO DAILY Oxygen Home Use 3LPM continuous via NC pantoprazole 40 mg PO DAILY 90 days pen needle, diabetic (BD Ultra-Fine Tamia Pen Needle) As directed once daily semaglutide (Ozempic) 0.25 mg (0.368 mL) subcut QWEEK sennosides-docusate sodium 8.6-50 mg (Senokot-S) 1 tab-cap PO BEDTIME 30 days [X-Large pull up/adult diaper Change diaper 3 times a day or as needed for incontinence] Tobacco use date assessed: 05/13/23 Fall risk assessment: No Falls in past year Last assessed Fall Risk: 05/13/23 Dental Screening Dental Screen Date: 05/13/23 Did you have a dental visit in the last 12 months?: No Did you have a dental problem in the last 6 months where you did not have access to dental care?: No Was dental information given to patient?: No HPI Diabetes~3mos follow up HPI Details Patient is 67-year-old female came in today to have a follow-up on diabetes Her hemoglobin A1c is 6.6 today , she is on long-acting insulin 10 units daily and metformin 1 g, and Ozempic 0.25 mg injections Medication list reviewed Patient is also due for other labs She is seeing a pain specialist for severe COPD patient is oxygen dependent, she is not taking Dupixent along with trilogy Ellipta Today she is feeling better usually patient complained pain all over her body Lipid disorder: Patient is on atorvastatin 40 mg daily Patient is also on duloxetine and buspirone Chronic lower extremity swelling, continue furosemide 40 mg daily Gabapentin 600 mg 3 times a day for pain management Hydrochlorothiazide for blood pressure Chronic GERD, continue pantoprazole 40 mg Follow-up in October [facility] Medical History PMB (postmenopausal bleeding) CHF (congestive heart failure) Rheumatoid arthritis Fibromyalgia Cellulitis Arthritis History of hepatitis C Asthma Type 2 diabetes mellitus with polyneuropathy Hyperlipidemia LDL goal <100 Morbid obesity due to excess calories BMI 40.0-44.9, adult Swelling of lower extremity Hypertension, essential History of opioid abuse Chronic GERD Lipid disorder COPD, severe Oxygen dependent Depression, major, 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 Mother No problems noted. Brother Diabetes Son No problems noted. Sister No problems noted. Sister No problems noted. Sister No problems noted. Daughter No problems noted. Daughter No problems noted. Social History Household Members: Spouse Housing: Apartment Alcohol intake: never Patient Tobacco Use Status: Former Tobacco user Quit Date: October 07, 2019 e-Cigarette/Vaping Use: Never Used Second Hand Smoke Exposure: Yes service: No Current occupational status: disabled Cognitive needs: Yes (wheelchair) Hearing needs: No Vision needs: No Female Reproductive History Menstrual Age of Menarche: 13 Questionnaire PHQ-9 Over the last 2 weeks, how often have you been bothered by any of the following problems? 1. Little interest or pleasure in doing things: not at all 2. Feeling down, depressed, or hopeless: nearly every day 3. Trouble falling or staying asleep, or sleeping too much: not at all 4. Feeling tired or having little energy: not at all 5. Poor appetite or overeating: not at all 6. Feeling bad about yourself - or that you are a failure or have let yourself or your family down: not at all 7. Trouble concentrating on things, such as reading the newspaper or watching television: not at all 8. Moving or speaking so slowly that other people could have noticed. Or the opposite - being so fidgety or restless that you have been moving around a lot more than usual: not at all 9. Thoughts that you would be better off or of hurting yourself in some way: not at all Total score: 3 Depression Screening Interpretation: Negative Depression Screening Done: Yes 74533 - PHQ-9 Billing: Yes Source: Developed by Drs. Luis Lema, Jagruti Lovett, Rolando Romero and colleagues, with an educational tish from [employer]. Thrive Questionnaire Date Thrive assessed: 12/03/22 WILIAM-7 AMB Questionnaire WILIAM-7 Date WILIAM - 7 assessed: 12/03/22 Source: Developed by Drs. Luis Lema, Jagruti Lovett, Rolando Romero and colleagues, with an educational tish from [employer]. Review of Systems Const Denies chills and Denies fever(s) ENT Denies epistaxis and Denies nasal discharge Card Denies chest pain Resp Denies chest congestion, Denies cough and Denies hemoptysis GI Denies diarrhea and Denies nausea Skin/Breast Denies rash Neuro Reports no additional complaints Psych Reports no additional complaints Endo Reports no additional complaints Physical exam (Primary Care) Vital Signs: Last Vital Signs Pulse 96 05/13/23 14:52 BP 130/74 05/13/23 14:52 Pulse Ox 97 05/13/23 14:52 Oxygen Delivery Method Nasal Cannula 05/13/23 14:52 Tobacco/Smoking Status: Tobacco use Status Tobacco use date assessed 05/13/23 05/13/23 14:57 Patient Tobacco Use Status Former Tobacco user 05/13/23 14:51 e-Cigarette/Vaping Use Never Used 05/13/23 14:51 PHQ-9: PHQ-9 Score PHQ-9: Total score 3 05/13/23 15:14 Depression Screening Interpretation: Negative Thrive Assessment: Date of Thrive Assessment Date Thrive assessed 12/03/22 05/13/23 14:51 Const General: cooperative, comfortable and no acute distress Orientation/consciousness: patient oriented x3 HENMT Head: Yes normocephalic Eyes General: appearance normal, both eyes and all related structures Neck Neck: Yes supple Resp Effort & Inspection: normal respiratory effort, no cough and no stridor Cardio Rhythm: regular rhythm Heart sounds: S1 normal heart sound present and S2 normal heart sound present Skin General skin exam: turgor normal Neuro Other: Patient is sitting in wheelchair General: patient oriented x3, tone normal and moves all extremities Extrem Other: 1+ pitting edema both ankles Results AMB Hemoglobin A1c AMB Hemoglobin A1c 6.6 % Last Edit by Ofelia Smith CMA on 05/13/23 15:15 Results Reviewed Results Reviewed: Laboratory Last Values Hgb A1c (Clinic) 6.6 % (4.0-6.0) H 05/13/23 15:13 Assessment and Plan Assessment & Plan (1) Type 2 diabetes mellitus with polyneuropathy: Code(s): E11.42 - Type 2 diabetes mellitus with diabetic polyneuropathy (2) Morbid obesity due to excess calories: Code(s): E66.01 - Morbid (severe) obesity due to excess calories (3) Hypertension, essential: Code(s): I10 - Essential (primary) hypertension (4) Lipid disorder: Code(s): E78.9 - Disorder of lipoprotein metabolism, unspecified (5) COPD, severe: Code(s): J44.9 - Chronic obstructive pulmonary disease, unspecified (6) Depression, major, recurrent: Code(s): F33.9 - Major depressive disorder, recurrent, unspecified Qualifiers: Active/Remission status: in partial remission Qualified Code(s): F33.41 - Major depressive disorder, recurrent, in partial remission (7) Chronic pain syndrome: Code(s): G89.4 - Chronic pain syndrome (8) Oxygen dependent: Code(s): Z99.81 - Dependence on supplemental oxygen (9) Venous stasis dermatitis: Code(s): I87.2 - Venous insufficiency (chronic) (peripheral) Qualifiers: Laterality: bilateral Qualified Code(s): I87.2 - Venous insufficiency (chronic) (peripheral) (10) Edema of both feet: Code(s): R60.0 - Localized edema Plan Patient is 67-year-old female came in today to have a follow-up on diabetes Her hemoglobin A1c is 6.6 today , she is on long-acting insulin 10 units daily and metformin 1 g, and Ozempic 0.25 mg injections Medication list reviewed Patient is also due for other labs She is seeing a pain specialist for severe COPD patient is oxygen dependent, she is not taking Dupixent along with trilogy Ellipta Today she is feeling better usually patient complained pain all over her body Lipid disorder: Patient is on atorvastatin 40 mg daily Patient is also on duloxetine and buspirone Chronic lower extremity swelling, continue furosemide 40 mg daily Gabapentin 600 mg 3 times a day for pain management Hydrochlorothiazide for blood pressure Chronic GERD, continue pantoprazole 40 mg Follow-up in October Orders: Orders Comprehensive Met. Panel Today E11.42 - Type 2 diabetes mellitus with diabetic polyneuropathy, E66.01 - Morbid (severe) obesity due to excess calories, E78.9 - Disorder of lipoprotein metabolism, unspecified, F33.9 - Major depressive disorder, recurrent, unspecified, G89.4 - Chronic pain syndrome, I10 - Essential (primary) hypertension, I87.2 - Venous insufficiency (chronic) (peripheral), J44.9 - Chronic obstructive pulmonary disease, unspecified, R60.0 - Localized edema, Z99.81 - Dependence on supplemental oxygen LDL Cholesterol Direct Today E11.42 - Type 2 diabetes mellitus with diabetic polyneuropathy, E66.01 - Morbid (severe) obesity due to excess calories, E78.9 - Disorder of lipoprotein metabolism, unspecified, F33.9 - Major depressive disorder, recurrent, unspecified, G89.4 - Chronic pain syndrome, I10 - Essential (primary) hypertension, I87.2 - Venous insufficiency (chronic) (peripheral), J44.9 - Chronic obstructive pulmonary disease, unspecified, R60.0 - Localized edema, Z99.81 - Dependence on supplemental oxygen Microalbumin, Random (w Creat) Today E11.42 - Type 2 diabetes mellitus with diabetic polyneuropathy, E66.01 - Morbid (severe) obesity due to excess calories, E78.9 - Disorder of lipoprotein metabolism, unspecified, F33.9 - Major depressive disorder, recurrent, unspecified, G89.4 - Chronic pain syndrome, I10 - Essential (primary) hypertension, I87.2 - Venous insufficiency (chronic) (peripheral), J44.9 - Chronic obstructive pulmonary disease, unspecified, R60.0 - Localized edema, Z99.81 - Dependence on supplemental oxygen Complete Blood Count Auto Diff Today E11.42 - Type 2 diabetes mellitus with diabetic polyneuropathy, E66.01 - Morbid (severe) obesity due to excess calories, E78.9 - Disorder of lipoprotein metabolism, unspecified, F33.9 - Major depressive disorder, recurrent, unspecified, G89.4 - Chronic pain syndrome, I10 - Essential (primary) hypertension, I87.2 - Venous insufficiency (chronic) (peripheral), J44.9 - Chronic obstructive pulmonary disease, unspecified, R60.0 - Localized edema, Z99.81 - Dependence on supplemental oxygen TSH reflex Free T4 Today E11.42 - Type 2 diabetes mellitus with diabetic polyneuropathy, E66.01 - Morbid (severe) obesity due to excess calories, E78.9 - Disorder of lipoprotein metabolism, unspecified, F33.9 - Major depressive disorder, recurrent, unspecified, G89.4 - Chronic pain syndrome, I10 - Essential (primary) hypertension, I87.2 - Venous insufficiency (chronic) (peripheral), J44.9 - Chronic obstructive pulmonary disease, unspecified, R60.0 - Localized edema, Z99.81 - Dependence on supplemental oxygen AMB Hemoglobin A1c Today E11.42 - Type 2 diabetes mellitus with diabetic polyneuropathy Coding Level of Care Code Est Pt Level 4 (36609) Diagnoses Type 2 diabetes mellitus with polyneuropathy E11.42 Morbid obesity due to excess calories E66.01 Hypertension, essential I10 Lipid disorder E78.9 COPD, severe J44.9 Recurrent major depressive disorder, in partial remission F33.41 Active/Remission status: in partial remission Chronic pain syndrome G89.4 Oxygen dependent Z99.81 Venous stasis dermatitis of both lower extremities I87.2 Laterality: bilateral Edema of both feet R60.0
[2023-05-13 14:52] VITALS: BP 130/74; PULSE 96; O2SAT 97
== END 2023-05-13 15:11 | disposition home or self-care (01) ==
LOC: HO.HMGC 14:50
PROVIDERS: PCP Internal Medicine; Visit Provider Internal Medicine
DX: E11.42 Type 2 diabetes mellitus with diabetic polyneuropathy (principal); E66.01 Morbid (severe) obesity due to excess calories; J44.9 Chronic obstructive pulmonary disease, unspecified; F33.41 Major depressive disorder, recurrent, in partial remission; I10 Essential (primary) hypertension; E78.9 Disorder of lipoprotein metabolism, unspecified; G89.4 Chronic pain syndrome; Z99.81 Dependence on supplemental oxygen; I87.2 Venous insufficiency (chronic) (peripheral); R60.0 Localized edema
CPT/HCPCS: 83036; 99214

== ENCOUNTER 2023-05-13 15:12 | Outpatient (REF) | payer OTHER, SELFPAY ==
[2023-05-13 16:15] LABS: MANUAL DIFF FLAG NO
[2023-05-13 16:26] LABS: Basophils Percent Auto 0.3 % (0-2); Eosinophils Absolute Auto 0.5 X10*3/uL (0.0-0.4); Eosinophils Percent Auto 4.3 % (0-4); Hematocrit 37.7 % (37.0-47.0); Hemoglobin 11.1 g/dl (12.0-16.0); Imm Gran Abs Auto 0.05 X10*3/uL (0.00-0.03); Imm Gran Pct Auto 0.4 % (0.0-0.4); Lymphocytes Absolute Auto 2.3 X10*3/uL (1.2-4.9); Lymphocytes Percent Auto 18.9 % (20-40); Mean Corpuscular HGB Conc 29.4 g/dl (31.0-35.0); Mean Corpuscular Hemoglobin 28.8 pg (27.0-33.0); Mean Corpuscular Volume 97.7 fL (80.0-98.0); Mean Platelet Volume 9.7 fL (9.4-12.3); Monocytes Absolute Auto 1.1 X10*3/uL (0.1-1.2); Monocytes Percent Auto 8.8 % (2-11); Neutrophils Absolute Auto 8.1 x10*3/uL (2.0-8.3); Neutrophils Percent Auto 67.3 % (45-73); Platelet Count 276 X10*3/uL (160-400); Red Blood Count 3.86 X10*6/uL (4.20-5.50); Red Cell Distribution Width 14.4 % (11.0-16.0)
[2023-05-13 16:32] LABS: Estimated Average Glucose 137 mg/dL; Hemoglobin A1c % 6.4 % (<6.0)
[2023-05-13 16:51] LABS: Creatinine Urine 34.56 mg/dL; Microalbumin Urine < 5.0 mg/L
[2023-05-13 17:01] LABS: Alanine Aminotransferase 15 U/L (0-31); Albumin Level 3.9 g/dL (3.5-5.0); Alkaline Phosphatase 73 U/L (39-117); Anion Gap 16 (12-20); Aspartate Amino Transferase 19 U/L (5-31); Bilirubin Total 0.2 mg/dL (0.0-1.0); Blood Urea Nitrogen 19 mg/dL (9-16); Calcium 9.6 mg/dL (8.4-10.2); Carbon Dioxide 34 mmol/L (22-29); Chloride 96 mmol/L (96-108); Estimated Glomerular Filt Rate > 60; Glucose Random 145 mg/dL (60-115); Potassium 4.2 mmol/L (3.3-5.1); Sodium 142 mmol/L (135-145); Total Protein 7.4 g/dL (6.5-8.0)
[2023-05-13 17:08] LABS: TSH reflex Free T4 0.58 uIU/mL (0.32-4.0)
[2023-05-16 22:44] LABS: LDL Cholesterol Direct 70 mg/dL (<100)
== END 2023-05-13 15:13 | disposition home or self-care (01) ==
LOC: HO.HMGCLDS 15:12
PROVIDERS: PCP Internal Medicine; Visit Provider Internal Medicine
DX: E11.42 Type 2 diabetes mellitus with diabetic polyneuropathy (principal); E66.01 Morbid (severe) obesity due to excess calories; I10 Essential (primary) hypertension; E78.9 Disorder of lipoprotein metabolism, unspecified; J44.9 Chronic obstructive pulmonary disease, unspecified; F33.9 Major depressive disorder, recurrent, unspecified; G89.4 Chronic pain syndrome; I87.2 Venous insufficiency (chronic) (peripheral); R60.0 Localized edema; Z99.81 Dependence on supplemental oxygen
CPT/HCPCS: 36415; 80053; 82570; 83036; 83721; 84443; 85025

== ENCOUNTER 2023-05-27 14:30 | Outpatient (AMB) | payer OTHER, SELFPAY ==
--- NOTE | 2023-05-27 14:32 | A.OFFVIS_ITS ---
Intake Intake Visit Reasons: Newprob-B/L shoulder pain Intake Note: Celi is a 67 year old female who presents today for a evaluation for her bilateral shoulder pain. Patient reports ongoing pain for many year. She states that her right shoulder is worse than the left shoulder. No previous treatment. Hx of compound creams with mild relief. Allergies alprazolam [From XANAX] Allergy (Unknown, Verified 05/27/23 14:33) drowsiness risperidone [From RISPERDAL] Allergy (Unknown, Verified 05/27/23 14:33) drowsiness tramadol [From ULTRAM] Allergy (Unknown, Verified 05/27/23 14:33) n/v HPI Newprob-B/L shoulder pain HPI Details 67-year-old female who presents in the [facility] today for an evaluation of bilateral shoulder pain. The patient reports chronic pain for many years. She claims the right shoulder is worse then the left shoulder. She has a history compound creams with mild relief. [facility] Medical History PMB (postmenopausal bleeding) CHF (congestive heart failure) Rheumatoid arthritis Fibromyalgia Cellulitis Arthritis History of hepatitis C Asthma Type 2 diabetes mellitus with polyneuropathy Hyperlipidemia LDL goal <100 Morbid obesity due to excess calories BMI 40.0-44.9, adult Swelling of lower extremity Hypertension, essential History of opioid abuse Chronic GERD Lipid disorder COPD, severe Oxygen dependent Depression, major, 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 Mother No problems noted. Brother Diabetes Son No problems noted. Sister No problems noted. Sister No problems noted. Sister No problems noted. Daughter No problems noted. Daughter No problems noted. Social History Household Members: Spouse Housing: Apartment Alcohol intake: never Patient Tobacco Use Status: Former Tobacco user Quit Date: October 07, 2019 e-Cigarette/Vaping Use: Never Used Second Hand Smoke Exposure: Yes service: No Current occupational status: disabled Cognitive needs: Yes (wheelchair) Hearing needs: No Vision needs: No Female Reproductive History Menstrual Age of Menarche: 13 Review of Systems Const All systems reviewed & are unremarkable except as noted in HPI and below Physical Exam Const General: cooperative, healthy appearing and no acute distress Resp Effort & Inspection: normal respiratory effort and able to speak in complete sentences Cardio Rate: regular rate Peripheral pulses: Peripheral pulses 2+ throughout GI Palpation (GI): Soft to palpation Skin Lesions: no lesions Rashes: no rashes Extrem Other: Bilateral shoulder: Able to perform forward flexion to 100 degrees. Abduction to 80 degrees. External rotation to neutral. Pain with cross-body reach. Negative drop arm. 3/5 strength with empty can. NVI. Assessment & Plan Assessment & Plan (1) Osteoarthritis of shoulders, bilateral: Code(s): M19.011 - Primary osteoarthritis, right shoulder; M19.012 - Primary osteoarthritis, left shoulder Qualifiers: Osteoarthritis type: unspecified Qualified Code(s): M19.011 - Primary osteoarthritis, right shoulder; M19.012 - Primary osteoarthritis, left shoulder Plan Ms. Munoz is a 67-year-old female who presents in the office today for an evaluation of bilateral shoulder pain. The patient reports chronic pain for many years. She claims the right shoulder is worse then the left shoulder. She has a history compound creams with mild relief. The patient will be referred for a bilateral shoulder arthrogram at the hospital. On 04/29 she was seen for bilateral knee osteoarthritis where she received bilateral knee cortisone injection, which gave her mild relief. She would like for us to petition Gel injections with the insurance. Follow up will be after we have received insurance approval, or sooner if needed. Orders: Orders [place] arthrogram shoulder RT 05/27/23 M19.011 - Primary osteoarthritis, right shoulder, M19.012 - Primary osteoarthritis, left shoulder FL arthrogram shoulder LT 05/27/23 M19.011 - Primary osteoarthritis, right shoulder, M19.012 - Primary osteoarthritis, left shoulder Patient Instructions: Scribed for Angela Tuttle PA-C by Jackie Muñoz biomedical manager, on 05/27/2023 at 2:34 pm, EST. Coding Level of Care Code Est Pt Level 3 (24564) Diagnoses Osteoarthritis of both shoulders, unspecified osteoarthritis type M19.011; M19.012 Osteoarthritis type: unspecified
== END 2023-05-27 14:57 | disposition home or self-care (01) ==
PROVIDERS: PCP Internal Medicine; Visit Provider Physician Assistant
DX: M19.011 Primary osteoarthritis, right shoulder (principal); M19.012 Primary osteoarthritis, left shoulder
CPT/HCPCS: 99213

== ENCOUNTER → 2023-05-27 14:30 | Outpatient (BNVA) | payer OTHER, SELFPAY | PROVIDERS: PCP Internal Medicine; Visit Provider Physician Assistant | DX: M19.011 Primary osteoarthritis, right shoulder (principal); M19.012 Primary osteoarthritis, left shoulder | CPT/HCPCS: 99212 ==

== ENCOUNTER 2023-06-12 12:39 | Outpatient (AMB) | payer OTHER, SELFPAY ==
--- NOTE | 2023-06-12 12:40 | A.OFFVIS_ITS ---
Intake Intake Visit Reasons: OV - B/L knee Durolane gel inj Intake Note: Celi is a 67 year old female who presents today for her bilateral knee durolane gel injections. Allergies alprazolam [From XANAX] Allergy (Unknown, Verified 06/12/23 12:45) drowsiness risperidone [From RISPERDAL] Allergy (Unknown, Verified 06/12/23 12:45) drowsiness tramadol [From ULTRAM] Allergy (Unknown, Verified 06/12/23 12:45) n/v HPI OV - B/L knee Durolane gel inj HPI Details 67-year-old female who presents in the o ffice today for a follow up of bilateral knee pain and durolane injection bilaterally. [facility] Medical History PMB (postmenopausal bleeding) CHF (congestive heart failure) Rheumatoid arthritis Fibromyalgia Cellulitis Arthritis History of hepatitis C Asthma Type 2 diabetes mellitus with polyneuropathy Hyperlipidemia LDL goal <100 Morbid obesity due to excess calories BMI 40.0-44.9, adult Swelling of lower extremity Hypertension, essential History of opioid abuse Chronic GERD Lipid disorder COPD, severe Oxygen dependent Depression, major, 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 Mother No problems noted. Brother Diabetes Son No problems noted. Sister No problems noted. Sister No problems noted. Sister No problems noted. Daughter No problems noted. Daughter No problems noted. Social History Household Members: Spouse Housing: Apartment Alcohol intake: never Patient Tobacco Use Status: Former Tobacco user Quit Date: October 07, 2019 e-Cigarette/Vaping Use: Never Used Second Hand Smoke Exposure: Yes service: No Current occupational status: disabled Cognitive needs: Yes (wheelchair) Hearing needs: No Vision needs: No Female Reproductive History Menstrual Age of Menarche: 13 Review of Systems Const All systems reviewed & are unremarkable except as noted in HPI and below Physical Exam Const General: cooperative, healthy appearing and no acute distress Resp Effort & Inspection: normal respiratory effort and able to speak in complete sentences Cardio Rate: regular rate Peripheral pulses: Peripheral pulses 2+ throughout GI Palpation (GI): Soft to palpation Skin Lesions: no lesions Rashes: no rashes Extrem Other: Bilateral lower extremity: Are cellulitic. Anterior aspect of the tibia, about mid shaft medial has a small open abrasion that is actively weeping. Bilateral knees: Normal to inspection. No ecchymosis, erythema, or joint effusion. No tenderness to palpation to the medial or lateral joint lines. Full knee extension and flexion. NVI. Office Procedures Joint Injection/Drain Joint Injection/Drain Primary Site: right knee Secondary Site: left knee Prep: site was prepped using aseptic technique, ethochloride spray was applied and injection warnings given Injected: in the joint and other (Durolane) Approach Used: anterolateral Procedure: The patient tolerated the procedure well, but had some pain with the injection and there was some relief with the local anesthesia Coding 68738 - Large joint Procedure code (CPT) selection complete Assessment & Plan Assessment & Plan (1) Osteoarthritis of shoulders, bilateral: Code(s): M19.011 - Primary osteoarthritis, right shoulder; M19.012 - Primary osteoarthritis, left shoulder Qualifiers: Osteoarthritis type: unspecified Qualified Code(s): M19.011 - Primary osteoarthritis, right shoulder; M19.012 - Primary osteoarthritis, left shoulder Plan Ms. Munoz is a 67-year-old female who presents in the office today for a follow up of bilateral knee pain and durolane injection bilaterally. The patient was offered a durolane injection in the bilateral knees. The patient was explained the risk, benefits, and alternatives to receiving this injection. After receiving consent for the injection, the patient had the procedure done while in office today. The patient tolerated the procedure well with no complications. Follow up will be PRN, or sooner if needed. Patient Instructions: Scribed for Angela Tuttle PA-C by jossie Wilson scribe, on 06/12/2023 at 12:44 pm, EST. Coding Level of Care Code Procedure Only Diagnoses Osteoarthritis of both shoulders, unspecified osteoarthritis type M19.011; M19.012 Osteoarthritis type: unspecified CPT Codes Coding - 36732 Large joint: 22537 - Large joint ([id number])
== END 2023-06-12 13:18 | disposition home or self-care (01) ==
PROVIDERS: PCP Internal Medicine; Visit Provider Physician Assistant
DX: M17.0 Bilateral primary osteoarthritis of knee (principal)
CPT/HCPCS: 20610

== ENCOUNTER → 2023-06-12 12:39 | Outpatient (BNVA) | payer OTHER, SELFPAY | PROVIDERS: PCP Internal Medicine; Visit Provider Physician Assistant | DX: M17.0 Bilateral primary osteoarthritis of knee (principal); M19.011 Primary osteoarthritis, right shoulder; M19.012 Primary osteoarthritis, left shoulder | CPT/HCPCS: 20610; J7318 ==

== ENCOUNTER 2023-07-15 12:06 | Outpatient (AMB) | payer OTHER, SELFPAY ==
--- NOTE | 2023-07-15 12:14 | MHC.PC.OV ---
Vital Signs 07/15/23 12:15 Height 5 ft 8 in Weight 249 lb 8 oz BMI 37.9 BP 124/70 Blood Pressure Location Lt brachial Position Sitting Pulse 97 Pulse Source Pulse Oximeter Pulse Oximetry (%) 98 Oxygen Delivery Method Nasal Cannula Intake Visit Reasons: [facility] [place], [place], 06/18-06/23, Bilateral lower limb edema Allergies alprazolam [From XANAX] Allergy (Unknown, Verified 07/15/23 12:17) drowsiness risperidone [From RISPERDAL] Allergy (Unknown, Verified 07/15/23 12:17) drowsiness tramadol [From ULTRAM] Allergy (Unknown, Verified 07/15/23 12:17) n/v Medication List - Last Reconciled 07/15/23 by Veronique Rivera MD albuterol sulfate 90 mcg/actuation 2 puffs inhalation QID PRN alcohol swabs (Easy Touch Alcohol Prep Pads) topical; atorvastatin 40 mg PO DAILY 90 days blood sugar diagnostic (FreeStyle Lite Strips) 2x/day As directed blood-glucose meter (FreeStyle Lite Meter kit) As directed buprenorphine-naloxone 8-2 mg 2 film sublingually BID; +.5 (total 2.5 film) at night buspirone 15 mg PO BID clotrimazole-betamethasone 1-0.05 % 1 appl topical ONCE 30 days dapagliflozin propanediol (Farxiga) 5 mg PO DAILY disposable gloves As directed-size large [disposable wipes As directed] duloxetine 60 mg PO DAILY duloxetine 30 mg PO QAM dupilumab (Dupixent) 200 mg subcut Q2W jtftrfvrbsl-dqnujbgts-gxzlfxuf 200-62.5-25 mcg (Trelegy Ellipta) 1 ea inhalation DAILY furosemide 40 mg PO DAILY gabapentin 600 mg PO TID 30 days gabapentin mg PO glipizide 5 mg PO DAILY hydrochlorothiazide 25 mg PO DAILY incontinence pad, liner, disp As directed insulin glargine (Lantus Solostar U-100 Insulin) 10 units (0.1 mL) subcut QPM ipratropium-albuterol 0.5 mg-3 mg(2.5 mg base)/3 mL 3 mL inhalation TID lancets (1st Tier Unilet ComforTouch Lancet) As directed lanolin 1 appl topical DAILY lorazepam 1 mg PO TID PRN meloxicam 15 mg PO DAILY metformin 1,000 mg (2 x 500 mg) PO DAILY Oxygen Home Use 3LPM continuous via NC [oxygen-portable concentrator As directed 3 liter flow, continuous use. ] pantoprazole 40 mg PO DAILY 90 days pen needle, diabetic (BD Ultra-Fine Tamia Pen Needle) As directed once daily semaglutide (Ozempic) 0.25 mg (0.368 mL) subcut QWEEK sennosides-docusate sodium 8.6-50 mg (Senokot-S) 1 tab-cap PO BEDTIME 30 days torsemide 20 mg PO DAILY walker As directed [wheelchair As directed] [X-Large pull up/adult diaper Change diaper 3 times a day or as needed for incontinence] Tobacco use date assessed: 07/15/23 Fall risk assessment: No Falls in past year Last assessed Fall Risk: 07/15/23 Dental Screening Dental Screen Date: 07/15/23 Did you have a dental visit in the last 12 months?: No Did you have a dental problem in the last 6 months where you did not have access to dental care?: No Was dental information given to patient?: No HPI [facility] [place], [place], 06/18-06/23, Bilateral lower limb edema HPI Details Patient is 67-year-old female with a history of bipolar disorder, severe COPD, 4 L of oxygen dependent, chronic lower extremity dermatitis, history of heart failure, history of substance abuse, history of PTSD, type 2 diabetes, venous stasis, hypertension, rheumatoid arthritis, came in today for hospital discharge follow-up dated 06/23/2023 Patient was admitted secondary to swelling and cellulitis bilateral lower extremity She was treated with IV cefazolin for 5 days along with IV Lasix In emergency room there was concern of congestive heart failure, patient later developed acute kidney injury. Lasix was held and her creatinine improved. She is now back to her baseline Patient always complained of severe pain all over her body, she has fibromyalgia Other providers patient seeing are Dr Traore insurance follow up specialist Dr. Aguirre psychiatrist Patient have chronic incontinence, she is still waiting for her extra-large pull-ups and bed liners I printed all prescription and handed to her campground caretaker so they can fax it over themselves to a right medical supply store. 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 Mother No problems noted. Brother Diabetes Son No problems noted. Sister No problems noted. Sister No problems noted. Sister No problems noted. Daughter No problems noted. Daughter No problems noted. Social History Household Members: Spouse Housing: Apartment Alcohol intake: never Patient Tobacco Use Status: Former Tobacco user Quit Date: October 07, 2019 e-Cigarette/Vaping Use: Never Used Second Hand Smoke Exposure: Yes service: No Current occupational status: disabled Cognitive needs: Yes (wheelchair) Hearing needs: No Vision needs: No Female Reproductive History Menstrual Age of Menarche: 13 Questionnaire Thrive Questionnaire Date Thrive assessed: 12/03/22 AUDIT C Alcohol Use Questionnaire (AUDIT-C) 1. How often do you have a drink containing alcohol?: Never 3. How often do you have six or more drinks on one occasion?: Never Total Score: 0 Score Reviewed/Action Taken: Yes WILIAM-7 AMB Questionnaire WILIAM-7 Date WILIAM - 7 assessed: 12/03/22 Source: Developed by Drs. Luis Lema, Jagruti Lovett, Rolando Romero and colleagues, with an educational tish from [employer]. Review of Systems Const Denies chills and Denies fever(s) ENT Denies epistaxis and Denies nasal discharge Card Denies chest pain GI Denies diarrhea and Denies nausea Skin/Breast Denies rash Neuro Reports no additional complaints Psych Reports no additional complaints Endo Reports no additional complaints Physical exam (Primary Care) Vital Signs: Last Vital Signs Pulse 97 07/15/23 12:15 BP 124/70 07/15/23 12:15 Pulse Ox 98 07/15/23 12:15 Oxygen Delivery Method Nasal Cannula 07/15/23 12:15 BMI result Body Mass Index 37.9 Tobacco/Smoking Status: Tobacco use Status Tobacco use date assessed 07/15/23 07/15/23 12:19 Patient Tobacco Use Status Former Tobacco user 07/15/23 12:19 e-Cigarette/Vaping Use Never Used 07/15/23 12:19 Thrive Assessment: Date of Thrive Assessment Date Thrive assessed 12/03/22 07/15/23 12:19 Const General: cooperative, comfortable and no acute distress Orientation/consciousness: patient oriented x3 HENMT Head: Yes normocephalic Eyes General: appearance normal, both eyes and all related structures Neck Neck: Yes supple Resp Effort & Inspection: normal respiratory effort, no cough and no stridor Cardio Rhythm: regular rhythm Heart sounds: S1 normal heart sound present and S2 normal heart sound present Skin General skin exam: turgor normal Neuro General: patient oriented x3, tone normal and moves all extremities Extrem Other: Edema is much improved minimal ankle edema still remaining, chronic stasis dermatitis still present but no signs of infection. Assessment and Plan Assessment & Plan (1) Type 2 diabetes mellitus with diabetic polyneuropathy: Code(s): E11.42 - Type 2 diabetes mellitus with diabetic polyneuropathy Qualifiers: Diabetes mellitus terminal makeup operator insulin use: with terminal makeup operator use Qualified Code(s): E11.42 - Type 2 diabetes mellitus with diabetic polyneuropathy; Z79.4 - residential (current) use of insulin (2) Depression, major, recurrent: Code(s): F33.9 - Major depressive disorder, recurrent, unspecified Qualifiers: Active/Remission status: in partial remission Qualified Code(s): F33.41 - Major depressive disorder, recurrent, in partial remission (3) Chronic heart failure: Code(s): I50.9 - Heart failure, unspecified Qualifiers: Heart failure type: unspecified Qualified Code(s): I50.9 - Heart failure, unspecified (4) COPD, severe: Code(s): J44.9 - Chronic obstructive pulmonary disease, unspecified (5) Morbid obesity due to excess calories: Code(s): E66.01 - Morbid (severe) obesity due to excess calories (6) Chronic pain syndrome: Code(s): G89.4 - Chronic pain syndrome (7) Oxygen dependent: Code(s): Z99.81 - Dependence on supplemental oxygen (8) Chronic GERD: Code(s): K21.9 - Gastro-esophageal reflux disease without esophagitis (9) Lipid disorder: Code(s): E78.9 - Disorder of lipoprotein metabolism, unspecified (10) Hypertension, essential: Code(s): I10 - Essential (primary) hypertension (11) Venous stasis dermatitis: Code(s): I87.2 - Venous insufficiency (chronic) (peripheral) (12) Multiple joint pain: Code(s): M25.50 - Pain in unspecified joint (13) Urine incontinence: Code(s): R32 - Unspecified urinary incontinence Qualifiers: Urinary Incontinence type: stress incontinence Qualified Code(s): N39.3 - Stress incontinence (female) (male) Plan Patient is 67-year-old female with a history of bipolar disorder, severe COPD, 4 L of oxygen dependent, chronic lower extremity dermatitis, history of heart failure, history of substance abuse, history of PTSD, type 2 diabetes, venous stasis, hypertension, rheumatoid arthritis, came in today for hospital discharge follow-up dated 06/23/2023 Patient was admitted secondary to swelling and cellulitis bilateral lower extremity She was treated with IV cefazolin for 5 days along with IV Lasix In emergency room there was concern of congestive heart failure, patient later developed acute kidney injury. Lasix was held and her creatinine improved. She is now back to her baseline Patient always complained of severe pain all over her body, she has fibromyalgia Other providers patient seeing are Dr Traore insurance follow up specialist Dr. Aguirre psychiatrist Patient have chronic incontinence, she is still waiting for her extra-large pull-ups and bed liners I printed all prescription and handed to her campground caretaker so they can fax it over themselves to a right medical supply store. Medications: Refilled incontinence pad, liner, disp As directed 200 ea 11RF R32 - Unspecified urinary incontinence disposable gloves As directed-size large 200 ea 11RF R32 - Unspecified urinary incontinence [X-Large pull up/adult diaper] Change diaper 3 times a day or as needed for incontinence 100 ea 11RF G89.4 - Chronic pain syndrome, R26.2 - Difficulty in walking, not elsewhere classified, R32 - Unspecified urinary incontinence [disposable wipes] As directed 200 ea 11RF R32 - Unspecified urinary incontinence incontinence pad, liner, disp As directed 200 ea 11RF R32 - Unspecified urinary incontinence lanolin 1 appl topical DAILY 170 mL 11RF I87.2 - Venous insufficiency (chronic) (peripheral) Coding Level of Care Code Est Pt Level 4 (18911) Diagnoses Type 2 diabetes mellitus with diabetic polyneuropathy, with long-term current use of insulin E11.42; Z79.4 Diabetes mellitus terminal makeup operator insulin use: with terminal makeup operator use Recurrent major depressive disorder, in partial remission F33.41 Active/Remission status: in partial remission Chronic heart failure, unspecified heart failure type I50.9 Heart failure type: unspecified COPD, severe J44.9 Morbid obesity due to excess calories E66.01 Chronic pain syndrome G89.4 Oxygen dependent Z99.81 Chronic GERD K21.9 Lipid disorder E78.9 Hypertension, essential I10 Venous stasis dermatitis I87.2 Multiple joint pain M25.50 Stress incontinence of urine N39.3 Urinary Incontinence type: stress incontinence
[2023-07-15 12:15] VITALS: BP 124/70; PULSE 97; O2SAT 98; BMI 37.9
== END 2023-07-15 15:05 | disposition home or self-care (01) ==
PROVIDERS: PCP Internal Medicine; Visit Provider Internal Medicine
DX: E11.42 Type 2 diabetes mellitus with diabetic polyneuropathy (principal); Z79.4 Long term (current) use of insulin; F33.41 Major depressive disorder, recurrent, in partial remission; I50.9 Heart failure, unspecified; J44.9 Chronic obstructive pulmonary disease, unspecified; E66.01 Morbid (severe) obesity due to excess calories; G89.4 Chronic pain syndrome; Z99.81 Dependence on supplemental oxygen; K21.9 Gastro-esophageal reflux disease without esophagitis; E78.9 Disorder of lipoprotein metabolism, unspecified; I10 Essential (primary) hypertension; I87.2 Venous insufficiency (chronic) (peripheral)
CPT/HCPCS: 99214

== ENCOUNTER 2023-08-18 11:08 | Outpatient (REF) | payer OTHER, SELFPAY ==
--- NOTE | ~2023-08-18 | FL_ITS ---
Left shoulder steroid injection Indications: Left shoulder pain. Procedure: Risks and benefits and possible complications were discussed with the patient and the consent form was signed. The patient was placed supine on the fluoroscopy table. The left shoulder was prepped and draped in normal sterile fashion. 1% buffered lidocaine was used for anesthesia. A 22-gauge spinal needle was used to access the shoulder joint. Intra-articular position of the needle within the shoulder joint was verified using 3 cc of Omnipaque 300. A total of 40 mg of Medrol and 5 mL of 1% lidocaine was injected into the shoulder joint. The needle was then removed and a Band-Aid was applied to the injection site. The patient tolerated the procedure well. There were no immediate complications. FL/FL arthrogram shoulder LT Impression: Fluoroscopic left shoulder steroid injection The procedure was performed by sal Adam PA-C, and directly supervised by Dr. Stone.
--- NOTE | ~2023-08-18 | FL_ITS ---
Right shoulder steroid injection Indications: Right shoulder pain. Procedure: Risks and benefits and possible complications were discussed with the patient and the consent form was signed. The patient was placed supine on the fluoroscopy table. The right shoulder was prepped and draped in normal sterile fashion. 1% buffered lidocaine was used for anesthesia. A 22-gauge spinal needle was used to access the shoulder joint. Intra-articular position of the needle within the shoulder joint was verified using 3 cc of Omnipaque 300. A total of 40 mg Medrol and 5 mL 1% lidocaine was then injected into the shoulder joint. The needle was then removed and a Band-Aid was applied to the injection site. The patient tolerated the procedure well. There were no immediate complications. FL/FL arthrogram shoulder RT Impression: Fluoroscopic right shoulder arthrogram The procedure was performed by sal Adam PA-C, and directly supervised by Dr. Stone.
== END 2023-08-18 11:09 | disposition home or self-care (01) ==
LOC: HO.XRAY 11:08
PROVIDERS: PCP Internal Medicine; Visit Provider Physician Assistant
DX: M19.011 Primary osteoarthritis, right shoulder (principal); M19.012 Primary osteoarthritis, left shoulder
CPT/HCPCS: 23350; 73040

== ENCOUNTER → 2023-08-18 11:10 | Outpatient (BNV) | payer OTHER, SELFPAY | PROVIDERS: PCP Internal Medicine; Visit Provider Student in an Organized Health Care Education/Training Program | DX: M19.011 Primary osteoarthritis, right shoulder (principal) | CPT/HCPCS: 20610; 73040 ==

== ENCOUNTER 2023-08-22 12:27 | Outpatient (AMB) | payer OTHER, SELFPAY ==
[2023-08-22 12:33] VITALS: BMI 37.9
--- NOTE | 2023-08-22 12:33 | A.OFFVIS_ITS ---
Intake Vital Signs 08/22/23 12:33 Height 5 ft 8 in Weight 249 lb BMI 37.9 Intake Visit Reasons: OV- B/l knee inj Intake Note: Celi is a 67 year old female who presents today for her bilateral knee injections, her last gel injections were on 06/12/23. Patient reports her last injections gave her good relief. She would like to get cortisone injections to help with the discomfort. Allergies alprazolam [From XANAX] Allergy (Unknown, Verified 08/22/23 12:38) drowsiness risperidone [From RISPERDAL] Allergy (Unknown, Verified 08/22/23 12:38) drowsiness tramadol [From ULTRAM] Allergy (Unknown, Verified 08/22/23 12:38) n/v HPI OV- B/l knee inj HPI Details 67-year-old female who presents in the o ffice today for a follow up of bilateral knee pain. I last saw the patient in the office on 06/12/2023 when she was give Durolane injections in the bilateral knees. While in the office today she states the last injection gave her good relief. She would like to have repeat cortisone injections while in the office today. 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 Mother No problems noted. Brother Diabetes Son No problems noted. Sister No problems noted. Sister No problems noted. Sister No problems noted. Daughter No problems noted. Daughter No problems noted. Social History Household Members: Spouse Housing: Apartment Alcohol intake: never Patient Tobacco Use Status: Former Tobacco user Quit Date: October 07, 2019 e-Cigarette/Vaping Use: Never Used Second Hand Smoke Exposure: Yes service: No Current occupational status: disabled Cognitive needs: Yes (wheelchair) Hearing needs: No Vision needs: No Female Reproductive History Menstrual Age of Menarche: 13 Review of Systems Const All systems reviewed & are unremarkable except as noted in HPI and below Physical Exam Vital Signs: BMI result Body Mass Index 37.9 Const General: cooperative, healthy appearing and no acute distress Resp Effort & Inspection: normal respiratory effort and able to speak in complete sentences Cardio Rate: regular rate Peripheral pulses: Peripheral pulses 2+ throughout GI Palpation (GI): Soft to palpation Skin Lesions: no lesions Rashes: no rashes Extrem Other: Bilateral knees: Normal to inspection. No ecchymosis, erythema, or joint effusion. No tenderness to palpation to the medial or lateral joint lines. Full knee extension and flexion. NVI. Office Procedures Joint Injection/Drain Joint Injection/Drain Primary Site: right knee Secondary Site: left knee Prep: site was prepped using aseptic technique, ethochloride spray was applied and injection warnings given Injected: 40 mg of, DepoMedrol, with 8 mL of (2% plain lido ) and in the joint Approach Used: anterolateral Procedure: The patient tolerated the procedure well, but had some pain with the injection and there was some relief with the local anesthesia Coding 13673 - Large joint Procedure code (CPT) selection complete Assessment & Plan Assessment & Plan (1) Osteoarthritis of shoulders, bilateral: Code(s): M19.011 - Primary osteoarthritis, right shoulder; M19.012 - Primary osteoarthritis, left shoulder Qualifiers: Osteoarthritis type: unspecified Qualified Code(s): M19.011 - Primary osteoarthritis, right shoulder; M19.012 - Primary osteoarthritis, left shoulder (2) Diabetes: Code(s): E11.9 - Type 2 diabetes mellitus without complications Plan Ms. Munoz is a 67-year-old female who presents in the office today for a follow up of bilateral knee pain. I last saw the patient in the office on 06/12/2023 when she was give Durolane injections in the bilateral knees. While in the office today she states the last injection gave her good relief. She would like to have repeat cortisone injections while in the office today. The patient was offered a cortisone injection in the bilateral knees with 40 mg of DepoMedrol. The patient was explained the risk, benefits, and alternatives to receiving this injection. After receiving consent for the injection, the patient had the procedure done while in office today. The patient tolerated the procedure well with no complications. Due to the patient?s history of diabetes, they were instructed to monitor her blood glucose level. The patient was informed that they could see a rise in their numbers and if the numbers became too high, they were instructed to call their PCP. The patient was also informed that they could have facial flushing as a side effect of the injection but this will pass. Follow up will be PRN, or sooner if needed. Patient Instructions: Scribed for Angela Tuttle PA-C by Jackie Muñoz medical records analyst, on 08/22/2023 at 12:31 pm, EST. Coding Level of Care Code Est Pt Level 4 (77918) Diagnoses Osteoarthritis of both shoulders, unspecified osteoarthritis type M19.011; M19.012 Osteoarthritis type: unspecified Diabetes E11.9 CPT Codes Coding - 88496 Large joint: 97534 - Large joint ([id number])
== END 2023-08-22 12:44 | disposition home or self-care (01) ==
PROVIDERS: PCP Internal Medicine; Visit Provider Physician Assistant
DX: M19.011 Primary osteoarthritis, right shoulder (principal); M19.012 Primary osteoarthritis, left shoulder; E11.9 Type 2 diabetes mellitus without complications
CPT/HCPCS: 20610

== ENCOUNTER → 2023-08-22 12:27 | Outpatient (BNVA) | payer OTHER, SELFPAY | PROVIDERS: PCP Internal Medicine; Visit Provider Physician Assistant | DX: M25.561 Pain in right knee (principal); M25.562 Pain in left knee; E11.9 Type 2 diabetes mellitus without complications | CPT/HCPCS: 20610; J1020 ==

== ENCOUNTER 2023-10-21 11:11 | Outpatient (AMB) | payer OTHER, SELFPAY ==
--- NOTE | 2023-10-21 11:14 | A.OFFPC_ITS ---
Vital Signs 10/21/23 11:22 Height 5 ft 8 in BP 142/72 H Blood Pressure Location Lt brachial Position Sitting Pulse 109 H Pulse Source Pulse Oximeter Pulse Oximetry (%) 84 L Oxygen Delivery Method Nasal Cannula Intake Visit Reasons: lower back pain, requesting referral Allergies alprazolam [From XANAX] Allergy (Unknown, Verified 10/21/23 11:24) drowsiness risperidone [From RISPERDAL] Allergy (Unknown, Verified 10/21/23 11:24) drowsiness tramadol [From ULTRAM] Allergy (Unknown, Verified 10/21/23 11:24) n/v Medication List - Last Reconciled 10/21/23 by Veronique Rivera MD albuterol sulfate 90 mcg/actuation 2 puffs inhalation QID PRN alcohol swabs (Easy Touch Alcohol Prep Pads) topical; atorvastatin 40 mg PO DAILY 90 days blood sugar diagnostic (FreeStyle Lite Strips) 2x/day As directed blood-glucose meter (FreeStyle Lite Meter kit) As directed buprenorphine-naloxone 8-2 mg 2 film sublingually BID; +.5 (total 2.5 film) at night buspirone 15 mg PO BID clotrimazole-betamethasone 1-0.05 % 1 appl topical ONCE 30 days dapagliflozin propanediol (Farxiga) 5 mg PO DAILY disposable gloves As directed-size large [disposable wipes As directed] duloxetine 60 mg PO DAILY duloxetine 30 mg PO QAM dupilumab (Dupixent) 200 mg subcut Q2W emyvuqypjdp-txonlsxfb-oypefggx 200-62.5-25 mcg (Trelegy Ellipta) 1 ea inhalation DAILY furosemide 40 mg PO DAILY gabapentin 600 mg PO TID 30 days gabapentin mg PO glipizide 5 mg PO DAILY hydrochlorothiazide 25 mg PO DAILY incontinence pad, liner, disp As directed insulin glargine (Lantus Solostar U-100 Insulin) 10 units (0.1 mL) subcut QPM ipratropium-albuterol 0.5 mg-3 mg(2.5 mg base)/3 mL 3 mL inhalation TID lancets test blood sugar 3 times per day lanolin 1 appl topical DAILY lorazepam 1 mg PO TID PRN meloxicam 15 mg PO DAILY metformin 1,000 mg (2 x 500 mg) PO DAILY Oxygen Home Use 3LPM continuous via NC [oxygen-portable concentrator As directed 3 liter flow, continuous use. ] pantoprazole 40 mg PO DAILY 90 days pen needle, diabetic (BD Ultra-Fine Tamia Pen Needle) As directed once daily semaglutide (Ozempic) 0.25 mg (0.368 mL) subcut QWEEK sennosides-docusate sodium 8.6-50 mg (Senokot-S) 1 tab-cap PO BEDTIME 30 days torsemide 20 mg PO DAILY walker As directed [wheelchair As directed] [wheelchair repair Left side of chair is broken] [X-Large pull up/adult diaper Change diaper 3 times a day or as needed for incontinence] Tobacco use date assessed: 10/21/23 Fall risk assessment: No Falls in past year Last assessed Fall Risk: 10/21/23 Dental Screening Dental Screen Date: 10/21/23 Did you have a dental visit in the last 12 months?: No Did you have a dental problem in the last 6 months where you did not have access to dental care?: No Was dental information given to patient?: Patient has dentist HPI lower back pain, requesting referral HPI Details Patient is 68-year-old female with a history of peripheral vascular disease causing recurrent lower extremity cellulitis And chronic lower back pain. She seems to be confused today Her pulse ox is 84 She is here for her sterile instrument technician Who tells me that her sugars are above 200 most of the time and she is con stantly urinating. 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 She is on frusemide 40 mg, gabapentin 600 mg 3 times a day secondary to pain Along with duloxetine 60 mg Patient is diabetic and is taking glipizide 5 mg and long-acting insulin 10 units daily Hydrochlorothiazide 25 mg for blood pressure control She also have COPD and is currently on trilogy Ellipta through appointment specialist and [facility] Medical History PMB (postmenopausal bleeding) CHF (congestive heart failure) Rheumatoid arthritis Fibromyalgia Cellulitis Arthritis History of hepatitis C Asthma Type 2 diabetes mellitus with polyneuropathy Hyperlipidemia LDL goal <100 Morbid obesity due to excess calories BMI 40.0-44.9, adult Swelling of lower extremity Hypertension, essential History of opioid abuse Chronic GERD Lipid disorder COPD, severe Oxygen dependent Depression, major, 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 Mother No problems noted. Brother Diabetes Son No problems noted. Sister No problems noted. Sister No problems noted. Sister No problems noted. Daughter No problems noted. Daughter No problems noted. Social History Household Members: Spouse Housing: Apartment Alcohol intake: never Patient Tobacco Use Status: Former Tobacco user Quit Date: October 07, 2019 e-Cigarette/Vaping Use: Never Used Second Hand Smoke Exposure: Yes service: No Current occupational status: disabled Cognitive needs: Yes (wheelchair) Hearing needs: No Vision needs: No Female Reproductive History Menstrual Age of Menarche: 13 Questionnaire Thrive Questionnaire Date Thrive assessed: 12/03/22 WILIAM-7 AMB Questionnaire WILIAM-7 Date WILIAM - 7 assessed: 12/03/22 Source: Developed by Drs. Luis Lema, Jagruti Lovett, Rolando Romero and colleagues, with an educational tish from [employer]. Review of Systems Const Denies chills and Denies fever(s) ENT Denies epistaxis and Denies nasal discharge Card Denies chest pain Resp Denies hemoptysis GI Denies diarrhea and Denies nausea Skin/Breast Denies rash Neuro Reports no additional complaints Psych Reports no additional complaints Endo Reports no additional complaints Physical exam (Primary Care) Vital Signs: Last Vital Signs Pulse 109 H 10/21/23 11:22 BP 142/72 H 10/21/23 11:22 Pulse Ox 84 L 10/21/23 11:22 Oxygen Delivery Method Nasal Cannula 10/21/23 11:22 Tobacco/Smoking Status: Tobacco use Status Tobacco use date assessed 10/21/23 10/21/23 11:25 Patient Tobacco Use Status Former Tobacco user 10/21/23 11:16 e-Cigarette/Vaping Use Never Used 10/21/23 11:16 Thrive Assessment: Date of Thrive Assessment Date Thrive assessed 12/03/22 10/21/23 11:16 Const Other: Very drowsy, answers appropriately when awaken HENMT Head: Yes normocephalic Eyes General: appearance normal, both eyes and all related structures Neck Neck: Yes supple Resp Other: Wheezing bilateral when taking deep breaths Effort & Inspection: no cough and no stridor Cardio Other: Tachycardia Heart sounds: S1 normal heart sound present and S2 normal heart sound present Skin General skin exam: turgor normal Neuro Other: Mental status change from normal General: tone normal and moves all extremities Extrem Other: Edema present up to curran bilateral with erythema and warmth Assessment and Plan Assessment & Plan (1) Change in mental status: Code(s): R41.82 - Altered mental status, unspecified Qualifiers: Altered mental status type: stupor Qualified Code(s): R40.1 - Stupor (2) Cellulitis of lower extremity: Code(s): L03.119 - Cellulitis of unspecified part of limb Qualifiers: Laterality: unspecified laterality Qualified Code(s): L03.119 - Cellulitis of unspecified part of limb (3) Hypoxia: Code(s): R09.02 - Hypoxemia (4) Frequency of urination: Code(s): R35.0 - Frequency of micturition (5) Oxygen dependent: Code(s): Z99.81 - Dependence on supplemental oxygen (6) COPD, severe: Code(s): J44.9 - Chronic obstructive pulmonary disease, unspecified (7) Chronic pain syndrome: Code(s): G89.4 - Chronic pain syndrome Plan Patient is 68-year-old female with a history of peripheral vascular disease causing recurrent lower extremity cellulitis And chronic lower back pain. She seems to be confused today Her pulse ox is 84 She is here for her sterile instrument technician Who tells me that her sugars are above 200 most of the time and she is constantly urinating. 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 She is on frusemide 40 mg, gabapentin 600 mg 3 times a day secondary to pain Along with duloxetine 60 mg Patient is diabetic and is taking glipizide 5 mg and long-acting insulin 10 units daily Hydrochlorothiazide 25 mg for blood pressure control She also have COPD and is currently on trilogy Ellipta through appointment specialist and Dupixent Coding Level of Care Code Est Pt Level 5 (36541) Diagnoses Stupor R40.1 Altered mental status type: stupor Cellulitis of lower extremity, unspecified laterality L03.119 Laterality: unspecified laterality Hypoxia R09.02 Frequency of urination R35.0 Oxygen dependent Z99.81 COPD, severe J44.9 Chronic pain syndrome G89.4
[2023-10-21 11:22] VITALS: BP 142/72; PULSE 109; O2SAT 84
== END 2023-10-21 12:12 | disposition home or self-care (01) ==
LOC: HO.HMGC 11:11
PROVIDERS: PCP Internal Medicine; Visit Provider Internal Medicine
DX: R40.1 Stupor (principal); L03.119 Cellulitis of unspecified part of limb; J44.9 Chronic obstructive pulmonary disease, unspecified; R09.02 Hypoxemia; R35.0 Frequency of micturition; Z99.81 Dependence on supplemental oxygen; G89.4 Chronic pain syndrome
CPT/HCPCS: 99215

== ENCOUNTER 2023-11-26 10:36 | Outpatient (AMB) | payer OTHER, SELFPAY ==
[2023-11-26 10:38] VITALS: BP 130/76; PULSE 110; O2SAT 85
--- NOTE | 2023-11-26 10:38 | A.OFFPC_ITS ---
Vital Signs 11/26/23 10:38 Height 5 ft 8 in BMI Reason not done Patient refused/unable BP 130/76 Blood Pressure Location Rt brachial Position Sitting Pulse 110 H Pulse Source Pulse Oximeter Pulse Oximetry (%) 85 L Oxygen Delivery Method Room Air Intake Visit Reasons: bilateral leg swelling Allergies alprazolam [From XANAX] Allergy (Unknown, Verified 11/26/23 10:38) drowsiness risperidone [From RISPERDAL] Allergy (Unknown, Verified 11/26/23 10:38) drowsiness tramadol [From ULTRAM] Allergy (Unknown, Verified 11/26/23 10:38) n/v Medication List - Last Reconciled 11/26/23 by Veronique Rivera MD albuterol sulfate 90 mcg/actuation 2 puffs inhalation QID PRN alcohol swabs (Easy Touch Alcohol Prep Pads) topical; atorvastatin 40 mg PO DAILY 90 days blood sugar diagnostic (FreeStyle Lite Strips) 2x/day As directed blood-glucose meter (FreeStyle Lite Meter kit) As directed buprenorphine-naloxone 8-2 mg 2 film sublingually BID; +.5 (total 2.5 film) at night buspirone 15 mg PO BID clotrimazole-betamethasone 1-0.05 % 1 appl topical ONCE 30 days dapagliflozin propanediol (Farxiga) 5 mg PO DAILY disposable gloves As directed-size large [disposable wipes As directed] duloxetine 60 mg PO DAILY duloxetine 30 mg PO QAM dupilumab (Dupixent) 200 mg subcut Q2W [id number]-yvdmjaqzd-jdrbdzzg 200-62.5-25 mcg (Trelegy Ellipta) 1 ea inhalation DAILY furosemide 40 mg PO DAILY gabapentin 600 mg PO TID 30 days glipizide 5 mg PO DAILY hydrochlorothiazide 25 mg PO DAILY incontinence pad, liner, disp As directed insulin glargine (Lantus Solostar U-100 Insulin) 10 units (0.1 mL) subcut QPM ipratropium-albuterol 0.5 mg-3 mg(2.5 mg base)/3 mL 3 mL inhalation TID lancets test blood sugar 3 times per day lanolin 1 appl topical DAILY lorazepam 1 mg PO TID PRN meloxicam 15 mg PO DAILY metformin 1,000 mg (2 x 500 mg) PO DAILY Oxygen Home Use 3LPM continuous via NC [oxygen-portable concentrator As directed 3 liter flow, continuous use. ] pantoprazole 40 mg PO DAILY 90 days pen needle, diabetic (BD Ultra-Fine Tamia Pen Needle) As directed once daily semaglutide (Ozempic) 0.25 mg (0.368 mL) subcut QWEEK sennosides-docusate sodium 8.6-50 mg (Senokot-S) 1 tab-cap PO BEDTIME 30 days torsemide 20 mg PO DAILY walker As directed [wheelchair As directed] [wheelchair repair Left side of chair is broken] [X-Large pull up/adult diaper Change diaper 3 times a day or as needed for incontinence] Tobacco use date assessed: 10/21/23 Fall risk assessment: No Falls in past year Last assessed Fall Risk: 11/26/23 Dental Screening Dental Screen Date: 10/21/23 Did you have a dental visit in the last 12 months?: No Did you have a dental problem in the last 6 months where you did not have access to dental care?: No Was dental information given to patient?: Patient has dentist HPI bilateral leg swelling HPI Details Patient is 68-year-old female with a past medical history of morbid obesity goes away COPD complicated by chronic hypoxic respiratory failure, currently on 4 L of oxygen via nasal cannula, history of substance abuse, depression/anxiety/bipolar/PTSD , chronic pain syndrome, osteoarthritis knees, history of cardiac arrest, obstructive sleep apnea presented with altered mental status hypercarbia COPD exacerbation on 11/14/2023 [facility] Patient was admitted She was treated with nebulizer treatments and prednisone Lasix was stopped as she was started on torsemide 20 mg Patient has chronic vascular insufficiency in both of her lower extremity with chronic stasis dermatitis She also suffers from chronic lower extremity neuropathy which is painful Today she is back to her baseline Her user interface designer who is with her for over 30 years does not know the medication she is on Patient tells me that she takes whatever is given to her. We had a detailed discussion about organizing medications and the providers He will make a list of all her medications and the providers prescribing those medications and will bring it over I have also requested a dietary consultation for the patient She need to be on low-sodium diabetic diet. [facility] Medical History PMB (postmenopausal bleeding) CHF (congestive heart failure) Rheumatoid arthritis Fibromyalgia Cellulitis Arthritis History of hepatitis C Asthma Type 2 diabetes mellitus with polyneuropathy Hyperlipidemia LDL goal <100 Morbid obesity due to excess calories BMI 40.0-44.9, adult Swelling of lower extremity Hypertension, essential History of opioid abuse Chronic GERD Lipid disorder COPD, severe Oxygen dependent Depression, major, 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 Mother No problems noted. Brother Diabetes Son No problems noted. Sister No problems noted. Sister No problems noted. Sister No problems noted. Daughter No problems noted. Daughter No problems noted. Social History Household Members: Spouse Housing: Apartment Alcohol intake: never Patient Tobacco Use Status: Former Tobacco user Quit Date: October 07, 2019 e-Cigarette/Vaping Use: Never Used Second Hand Smoke Exposure: Yes service: No Current occupational status: disabled Cognitive needs: Yes (wheelchair) Hearing needs: No Vision needs: No Female Reproductive History Menstrual Age of Menarche: 13 Questionnaire PHQ-9 Over the last 2 weeks, how often have you been bothered by any of the following problems? 1. Little interest or pleasure in doing things: not at all 2. Feeling down, depressed, or hopeless: nearly every day 3. Trouble falling or staying asleep, or sleeping too much: not at all 4. Feeling tired or having little energy: not at all 5. Poor appetite or overeating: not at all 6. Feeling bad about yourself - or that you are a failure or have let yourself or your family down: not at all 7. Trouble concentrating on things, such as reading the newspaper or watching television: not at all 8. Moving or speaking so slowly that other people could have noticed. Or the opposite - being so fidgety or restless that you have been moving around a lot more than usual: not at all 9. Thoughts that you would be better off or of hurting yourself in some way: not at all Total score: 3 Depression Screening Interpretation: Negative Depression Screening Done: Yes 04320 - PHQ-9 Billing: Yes Source: Developed by Drs. Luis Lema, Jagruti Lovett, Rolando Romero and colleagues, with an educational tish from [employer]. Thrive Questionnaire Date Thrive assessed: 11/26/23 I am a: Patient What is your living situation today?: I have a steady place to live Within the past 12 months, did the food you bought not last and you didn't have the money to get more?: Never true Within the past 12 months, did you worry whether your food would run out before you got money to buy more?: Never true Do you have trouble paying for medicines?: No Do you have trouble getting transportation to medical appointments?: No Do you have trouble paying your heating and electricity bill?: No Do you have trouble taking care of your child, family member or friend?: No Do you have trouble with day-to-day activities such as bathing, preparing meals, shopping, managing finances, etc.?: No Are you currently unemployed and looking for a job?: No Are you interested in more education?: No Please select the resources that you would like help with: None Currently or been in a relationship where the following occur: no concerns reported THRIVE Score: 0 AUDIT C Alcohol Use Questionnaire (AUDIT-C) 1. How often do you have a drink containing alcohol?: Never 3. How often do you have six or more drinks on one occasion?: Never Total Score: 0 Score Reviewed/Action Taken: Yes WILIAM-7 AMB Questionnaire WILIAM-7 Date WILIAM - 7 assessed: 11/26/23 Feeling nervous, anxious, or on edge: 0 = Not at all Not being able to stop or control worryin = Not at all Worrying too much about different things: 0 = Not at all Trouble relaxin = Not at all Being so restless that it is hard to sit still: 0 = Not at all Becoming easily annoyed or irritable: 0 = Not at all Feeling afraid as if something awful might happen: 0 = Not at all Total WILIAM-7 score (0-4 normal; 5-9 mild; 10-14 moderate; 15-21 severe): 0 Source: Developed by Drs. Luis Lema, Jagruti Lovett, Rolando Romero and colleagues, with an educational tish from [employer]. WILIAM-7 Assessment Billing WILIAM-7 Assessment Tool: WILIAM-7 Assessment 92936 Review of Systems Const Denies chills and Denies fever(s) ENT Denies epistaxis and Denies nasal discharge Card Denies chest pain Resp Denies chest congestion, Denies cough and Denies hemoptysis GI Denies diarrhea and Denies nausea Skin/Breast Denies rash Neuro Reports no additional complaints Psych Reports no additional complaints Endo Reports no additional complaints Physical exam (Primary Care) Vital Signs: Last Vital Signs Pulse 110 H 11/26/23 10:38 BP 130/76 11/26/23 10:38 Pulse Ox 85 L 11/26/23 10:38 Oxygen Delivery Method Room Air 11/26/23 10:38 Tobacco/Smoking Status: Tobacco use Status Tobacco use date assessed 10/21/23 11/26/23 10:42 Patient Tobacco Use Status Former Tobacco user 11/26/23 10:42 e-Cigarette/Vaping Use Never Used 11/26/23 10:42 PHQ-9: PHQ-9 Score PHQ-9: Total score 3 11/26/23 10:54 Depression Screening Interpretation: Negative Thrive Assessment: Date of Thrive Assessment Date Thrive assessed 11/26/23 11/26/23 10:42 Currently or been in a relationship where the following occur: no concerns reported Const General: cooperative, comfortable and no acute distress Orientation/consciousness: patient oriented x3 HENMT Other: Nasal cannula in nose, patient is sitting in a wheelchair Head: Yes normocephalic Eyes General: appearance normal, both eyes and all related structures Neck Neck: Yes supple Resp Effort & Inspection: normal respiratory effort, no cough and no stridor Cardio Rhythm: regular rhythm Heart sounds: S1 normal heart sound present and S2 normal heart sound present Skin General skin exam: turgor normal Neuro General: patient oriented x3, tone normal and moves all extremities Extrem Other: Chronic stasis dermatitis both lower extremity left with more swelling than right which is baseline for the patient Assessment and Plan Assessment & Plan (1) Hospital discharge follow-up: Code(s): Z09 - Encounter for follow-up examination after completed treatment for conditions other than malignant neoplasm (2) COPD, severe: Code(s): J44.9 - Chronic obstructive pulmonary disease, unspecified (3) Oxygen dependent: Code(s): Z99.81 - Dependence on supplemental oxygen (4) Type 2 diabetes mellitus with diabetic polyneuropathy: Code(s): E11.42 - Type 2 diabetes mellitus with diabetic polyneuropathy Qualifiers: Diabetes mellitus senior living insulin use: with senior living use Qualified Code(s): E11.42 - Type 2 diabetes mellitus with diabetic polyneuropathy; Z79.4 - skilled nursing (current) use of insulin (5) Chronic pain syndrome: Code(s): G89.4 - Chronic pain syndrome (6) Venous stasis dermatitis: Code(s): I87.2 - Venous insufficiency (chronic) (peripheral) Plan Patient is 68-year-old female with a past medical history of morbid obesity goes away COPD complicated by chronic hypoxic respiratory failure, currently on 4 L of oxygen via nasal cannula, history of substance abuse, depression/anxiety/bipolar/PTSD , chronic pain syndrome, osteoarthritis knees, history of cardiac arrest, obstructive sleep apnea presented with altered mental status hypercarbia COPD exacerbation on 11/14/2023 [facility] Patient was admitted She was treated with nebulizer treatments and prednisone Lasix was stopped as she was started on torsemide 20 mg Patient has chronic vascular insufficiency in both of her lower extremity with chronic stasis dermatitis She also suffers from chronic lower extremity neuropathy which is painful Today she is back to her baseline Her user interface designer who is with her for over 30 years does not know the medication she is on Patient tells me that she takes whatever is given to her. We had a detailed discussion about organizing medications and the providers He will make a list of all her medications and the providers prescribing those medications and will bring it over I have also requested a dietary consultation for the patient She need to be on low-sodium diabetic diet. 41 minutes spent with this patient Reviewing emergency room notes, [id number] with patient and her user interface designer Discussing her medical issues, answering questions Medications: New torsemide 20 mg PO DAILY 90 tabs 0RF Discontinued meloxicam Discontinued Reason: Order 15 mg PO DAILY 14 tabs 0RF furosemide Discontinued Reason: Doctor's Order 40 mg PO DAILY 90 tabs 0RF Coding Level of Care Code Est Pt Level 5 (87744) Complex EM visit Add On G2211 Diagnoses Hospital discharge follow-up Z09 COPD, severe J44.9 Oxygen dependent Z99.81 Type 2 diabetes mellitus with diabetic polyneuropathy, with long-term current use of insulin E11.42; Z79.4 Diabetes mellitus senior living insulin use: with senior living use Chronic pain syndrome G89.4 Venous stasis dermatitis I87.2 Additional Codes WILIAM-7 Assessment Billing - WILIAM-7 Assessment Tool: WILIAM-7 Assessment [id number] ([id number])
== END 2023-11-26 11:20 | disposition home or self-care (01) ==
PROVIDERS: PCP Internal Medicine; Visit Provider Internal Medicine
DX: J44.9 Chronic obstructive pulmonary disease, unspecified (principal); E11.42 Type 2 diabetes mellitus with diabetic polyneuropathy; Z79.4 Long term (current) use of insulin; Z09 Encounter for follow-up examination after completed treatment for conditions other than malignant neoplasm; Z99.81 Dependence on supplemental oxygen; G89.4 Chronic pain syndrome; I87.2 Venous insufficiency (chronic) (peripheral)
CPT/HCPCS: 99215; G2211

== ENCOUNTER 2024-02-24 14:59 | Outpatient (AMB) | payer OTHER, SELFPAY ==
[2024-02-24 15:05] VITALS: BP 138/76; PULSE 118; O2SAT 87
--- NOTE | 2024-02-24 15:05 | A.OFFPC_ITS ---
Vital Signs 3 02/24/24 15:05 BMI Reason not done Patient refused/unable BP 138/76 Blood Pressure Location Rt brachial Position Sitting Pulse 118 H Pulse Source Pulse Oximeter Pulse Oximetry (%) 87 L Oxygen Delivery Method Room Air Intake Visit Reasons: Missed appt on 02/17/24. Allergies alprazolam [From XANAX] Allergy (Unknown, Verified 02/24/24 15:07) drowsiness risperidone [From RISPERDAL] Allergy (Unknown, Verified 02/24/24 15:07) drowsiness tramadol [From ULTRAM] Allergy (Unknown, Verified 02/24/24 15:07) n/v Medication List - Last Reconciled 02/24/24 by Veronique Rivera MD albuterol sulfate 90 mcg/actuation 2 puffs inhalation QID PRN alcohol swabs (Easy Touch Alcohol Prep Pads) topical; atorvastatin 40 mg PO DAILY 90 days blood sugar diagnostic (FreeStyle Lite Strips) 2x/day As directed blood-glucose meter (FreeStyle Lite Meter kit) As directed buprenorphine-naloxone 8-2 mg 2 film sublingually BID; +.5 (total 2.5 film) at night buspirone 15 mg PO BID clotrimazole-betamethasone 1-0.05 % 1 appl topical ONCE 30 days dapagliflozin propanediol (Farxiga) 5 mg PO DAILY disposable gloves As directed-size large [disposable wipes As directed] duloxetine 60 mg PO DAILY duloxetine 30 mg PO QAM dupilumab (Dupixent) 200 mg subcut Q2W okivvvhffrk-kgrlysgze-hiyacqae 200-62.5-25 mcg (Trelegy Ellipta) 1 ea inhalation DAILY gabapentin 600 mg PO TID 30 days glipizide 5 mg PO DAILY hydrochlorothiazide 25 mg PO DAILY incontinence pad, liner, disp As directed insulin glargine (Lantus Solostar U-100 Insulin) 10 units (0.1 mL) subcut QPM ipratropium-albuterol 0.5 mg-3 mg(2.5 mg base)/3 mL 3 mL inhalation TID lancets test blood sugar 3 times per day lanolin 1 appl topical DAILY lorazepam 1 mg PO TID PRN metformin 1,000 mg (2 x 500 mg) PO DAILY Oxygen Home Use 3LPM continuous via NC [oxygen-portable concentrator As directed 3 liter flow, continuous use. ] pantoprazole 40 mg PO DAILY 90 days pen needle, diabetic (BD Ultra-Fine Tamia Pen Needle) As directed once daily semaglutide (Ozempic) 0.25 mg (0.368 mL) subcut QWEEK sennosides-docusate sodium 8.6-50 mg (Senokot-S) 1 tab-cap PO BEDTIME 30 days torsemide 20 mg PO DAILY walker As directed [wheelchair As directed] [wheelchair repair Left side of chair is broken] [X-Large pull up/adult diaper Change diaper 3 times a day or as needed for incontinence] Tobacco use date assessed: 02/24/24 Fall risk assessment: No Falls in past year Last assessed Fall Risk: 02/24/24 Dental Screening Dental Screen Date: 02/24/24 Did you have a dental visit in the last 12 months?: No Did you have a dental problem in the last 6 months where you did not have access to dental care?: No Was dental information given to patient?: No HPI Missed appt on 02/17/24. 2 HPI0 Details Patient is 68-year-old female with a history of bipolar disorder, severe COPD, 4 L of oxygen dependent, chronic lower extremity dermatitis, history of heart failure, history of substance abuse, history of PTSD, type 2 diabetes, venous stasis, hypertension, rheumatoid arthritis, came in today for regular follow-up appointment Patient continued to have recurrent cellulitis of lower extremity She has flare-up of redness and pain right lower extremity today I have sent Augmentin for 7 days Suffers from fibromyalgia and continued to have severe pain all over her body COPD management through Dr Traore underwriting specialist, patient is on oxygen Dr. Aguirre psychiatrist Patient have chronic incontinence, she is still waiting for her extra-large pull-ups and bed liners Diabetes mellitus controlled, hemoglobin A1c 6.5% today She suffers from chronic lower back radiculitis to right leg She is requesting a referral to pain management [facility] which I have placed for her Medication list reviewed Blood pressure is stable Follow-up 3 months [facility] Medical History PMB (postmenopausal bleeding) CHF (congestive heart failure) Rheumatoid arthritis Fibromyalgia Cellulitis Arthritis History of hepatitis C Asthma Type 2 diabetes mellitus with polyneuropathy Hyperlipidemia LDL goal <100 Morbid obesity due to excess calories BMI 40.0-44.9, adult Swelling of lower extremity Hypertension, essential History of opioid abuse Chronic GERD Lipid disorder COPD, severe Oxygen dependent Depression, major, 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 Mother No problems noted. Brother Diabetes Son No problems noted. Sister No problems noted. Sister No problems noted. Sister No problems noted. Daughter No problems noted. Daughter No problems noted. Social History Household Members: Spouse Housing: Apartment Alcohol intake: never Patient Tobacco Use Status: Former Tobacco user e-Cigarette/Vaping Use: Never Used Second Hand Smoke Exposure: Yes service: No Current occupational status: disabled Cognitive needs: Yes (wheelchair) Hearing needs: No Vision needs: No Female Reproductive History Menstrual Age of Menarche: 13 Questionnaire PHQ-9 Over the last 2 weeks, how often have you been bothered by any of the following problems? 1. Little interest or pleasure in doing things: not at all 2. Feeling down, depressed, or hopeless: not at all 3. Trouble falling or staying asleep, or sleeping too much: not at all 4. Feeling tired or having little energy: several days 5. Poor appetite or overeating: several days 6. Feeling bad about yourself - or that you are a failure or have let yourself or your family down: not at all 7. Trouble concentrating on things, such as reading the newspaper or watching television: not at all 8. Moving or speaking so slowly that other people could have noticed. Or the opposite - being so fidgety or restless that you have been moving around a lot more than usual: not at all 9. Thoughts that you would be better off or of hurting yourself in some way: not at all Total score: 2 Depression Screening Interpretation: Negative Depression Screening Done: Yes 53292 - PHQ-9 Billing: Yes Source: Developed by Drs. Luis Lema, Jagruti Lovett, Rolando Romero and colleagues, with an educational tish from [employer]. Thrive Questionnaire Date Thrive assessed: 11/26/23 AUDIT C Alcohol Use Questionnaire (AUDIT-C) 1. How often do you have a drink containing alcohol?: Never 3. How often do you have six or more drinks on one occasion?: Never Total Score: 0 Score Reviewed/Action Taken: Yes WILIAM-7 AMB Questionnaire WILIAM-7 Date WILIAM - 7 assessed: 11/26/23 Source: Developed by Drs. Luis Lema, Jagruti Lovett, Rolando Romero and colleagues, with an educational tish from [employer]. Review of Systems Const Denies chills and Denies fever(s) ENT Denies epistaxis and Denies nasal discharge Card Denies chest pain Resp Denies chest congestion and Denies hemoptysis GI Denies diarrhea and Denies nausea Skin/Breast Denies rash Neuro Reports no additional complaints Psych Reports no additional complaints Endo Reports no additional complaints Physical exam (Primary Care) Vital Signs: Last Vital Signs Pulse 118 H 02/24/24 15:05 BP 138/76 02/24/24 15:05 Pulse Ox 87 L 02/24/24 15:05 Oxygen Delivery Method Room Air 02/24/24 15:05 Tobacco/Smoking Status: Tobacco use Status Tobacco use date assessed 02/24/24 02/24/24 15:08 Patient Tobacco Use Status Former Tobacco user 02/24/24 15:08 e-Cigarette/Vaping Use Never Used 02/24/24 15:08 PHQ-9: PHQ-9 Score PHQ-9: Total score 2 02/24/24 15:29 Depression Screening Interpretation: Negative Thrive Assessment: Date of Thrive Assessment Date Thrive assessed 11/26/23 02/24/24 15:08 Const Other: Patient is sitting in wheelchair in no acute distress with her STAPLE SIDE LASTER General: cooperative, comfortable and no acute distress Orientation/consciousness: patient oriented x3 HENMT Head: Yes normocephalic Eyes General: appearance normal, both eyes and all related structures Neck Neck: Yes supple Resp Effort & Inspection: normal respiratory effort, no cough and no stridor Cardio Rhythm: regular rhythm Heart sounds: S1 normal heart sound present and S2 normal heart sound present Skin General skin exam: turgor normal Neuro General: patient oriented x3, tone normal and moves all extremities Extrem Ankle/foot/toe images: 2 1. Increasing redness compared to left leg Assessment and Plan Assessment & Plan (1) Type 2 diabetes mellitus with diabetic polyneuropathy: Code(s): E11.42 - Type 2 diabetes mellitus with diabetic polyneuropathy Qualifiers: Diabetes mellitus terminal block assembler insulin use: with shelter use Qualified Code(s): E11.42 - Type 2 diabetes mellitus with diabetic polyneuropathy; Z79.4 - bed bug exterminator (current) use of insulin (2) Hypertension, essential: Code(s): I10 - Essential (primary) hypertension (3) Lipid disorder: Code(s): E78.9 - Disorder of lipoprotein metabolism, unspecified (4) Constipation by delayed colonic transit: Code(s): K59.01 - Slow transit constipation (5) Lumbosacral radiculitis: Code(s): M54.17 - Radiculopathy, lumbosacral region (6) COPD, severe: Code(s): J44.9 - Chronic obstructive pulmonary disease, unspecified (7) Oxygen dependent: Code(s): Z99.81 - Dependence on supplemental oxygen (8) Chronic pain syndrome: Code(s): G89.4 - Chronic pain syndrome (9) Venous stasis dermatitis: Code(s): I87.2 - Venous insufficiency (chronic) (peripheral) (10) Depression, major, recurrent: Code(s): F33.9 - Major depressive disorder, recurrent, unspecified Qualifiers: Active/Remission status: in partial remission Qualified Code(s): F33.41 - Major depressive disorder, recurrent, in partial remission (11) Morbid obesity due to excess calories: Code(s): E66.01 - Morbid (severe) obesity due to excess calories (12) Chronic GERD: Code(s): K21.9 - Gastro-esophageal reflux disease without esophagitis (13) Multiple joint pain: Code(s): M25.50 - Pain in unspecified joint Plan Patient is 68-year-old female with a history of bipolar disorder, severe COPD, 4 L of oxygen dependent, chronic lower extremity dermatitis, history of heart failure, history of substance abuse, history of PTSD, type 2 diabetes, venous stasis, hypertension, rheumatoid arthritis, came in today for regular follow-up appointment Patient continued to have recurrent cellulitis of lower extremity She has flare-up of redness and pain right lower extremity today I have sent Augmentin for 7 days Suffers from fibromyalgia and continued to have severe pain all over her body COPD management through Dr Traore underwriting specialist, patient is on oxygen Dr. Aguirre psychiatrist Patient have chronic incontinence, she is still waiting for her extra-large pull-ups and bed liners Diabetes mellitus controlled, hemoglobin A1c 6.5% today She suffers from chronic lower back radiculitis to right leg She is requesting a referral to pain management [facility] which I have placed for her Medication list reviewed Blood pressure is stable Complaining of constipation, Duloxetine is not helping, I sent Senokot tablets with the patient Follow-up 3 months Orders: Referrals 2 Pain Management Referral M54.17 - Radiculopathy, lumbosacral region Medications: New 2 amoxicillin-pot clavulanate 500-125 mg (Augmentin) 1 tab PO BID 7 days 14 tabs 0RF Leg infection Changed 2 From sennosides-docusate sodium 8.6-50 mg (Senokot-S) 1 tab-cap PO BEDTIME 30 days 30 tabs 8RF K59.03 - Drug induced constipation, T40.2X5A - Adverse effect of other opioids, initial encounter To sennosides-docusate sodium 8.6-50 mg (Senokot-S) 2 tab-caps (2 x 8.6-50 mg) PO ONCE 90 days 180 tabs 2RF Constipation K59.03 - Drug induced constipation, T40.2X5A - Adverse effect of other opioids, initial encounter Coding Level of Care Code Est Pt Level 4 (69305) Complex EM visit Add On G2211 Diagnoses Type 2 diabetes mellitus with diabetic polyneuropathy, with long-term current use of insulin E11.42; Z79.4 Diabetes mellitus terminal block assembler insulin use: with terminal block assembler use Hypertension, essential I10 Lipid disorder E78.9 Constipation by delayed colonic transit K59.01 Lumbosacral radiculitis M54.17 COPD, severe J44.9 Oxygen dependent Z99.81 Chronic pain syndrome G89.4 Venous stasis dermatitis I87.2 Recurrent major depressive disorder, in partial remission F33.41 Active/Remission status: in partial remission Morbid obesity due to excess calories E66.01 Chronic GERD K21.9 Multiple joint pain M25.50
== END 2024-02-24 15:28 | disposition home or self-care (01) ==
PROVIDERS: PCP Internal Medicine; Visit Provider Internal Medicine
DX: E11.42 Type 2 diabetes mellitus with diabetic polyneuropathy (principal); Z79.4 Long term (current) use of insulin; E66.01 Morbid (severe) obesity due to excess calories; J44.9 Chronic obstructive pulmonary disease, unspecified; F33.41 Major depressive disorder, recurrent, in partial remission; I10 Essential (primary) hypertension; E78.9 Disorder of lipoprotein metabolism, unspecified; K59.01 Slow transit constipation; M54.17 Radiculopathy, lumbosacral region; Z99.81 Dependence on supplemental oxygen; G89.4 Chronic pain syndrome
CPT/HCPCS: 83036; 99214; G2211

== ENCOUNTER 2024-03-08 10:57 | Outpatient (AMB) | payer MEDICARE, MEDICAID, SELFPAY ==
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
[2024-03-08 11:10] VITALS: BP 130/58; PULSE 88; RESP 16; BMI 38.0
== END 2024-03-08 11:38 | disposition home or self-care (01) ==
LOC: HO.PMC 10:57
PROVIDERS: PCP Internal Medicine; Referring Provider Internal Medicine; Visit Provider Internal Medicine
DX: M54.17 Radiculopathy, lumbosacral region (principal)
CPT/HCPCS: 99213

== ENCOUNTER → 2024-03-08 10:57 | Outpatient (BNVA) | payer MEDICAID, SELFPAY | PROVIDERS: PCP Internal Medicine; Referring Provider Internal Medicine; Visit Provider Internal Medicine | DX: M54.17 Radiculopathy, lumbosacral region (principal) | CPT/HCPCS: 99212 ==

== ENCOUNTER 2024-04-16 17:58 | Outpatient (REF) | payer MEDICARE, MEDICAID, SELFPAY ==
--- NOTE | ~2024-04-16 | MR_ITS ---
EXAMINATION: MR LUMBAR SPINE WITHOUT CONTRAST CLINICAL INFORMATION: Lumbar radiculopathy. COMPARISON: Lumbar spine radiographs 04/01/2016. TECHNIQUE: MRI of the lumbar spine was obtained using routine sequences without contrast. FINDINGS: There is grade 1 anterolisthesis of L4 on L5 and L5 on S1 related to advanced facet degenerative changes at each of these 2 levels. Alignment is otherwise normal. Vertebral body heights are preserved. There is bone marrow edema involving the pedicles and articular pillars of the L5-S1 facet joints. There are also minimal type I degenerative endplate changes at L5-S1. Slight loss of intervertebral disc on T2 signal intensity at multiple levels related to disc degeneration. The tip of the conus medullaris is located at L1. No mass effect on the conus. Visualized distal cord signal intensity is normal. At L1-L2 there is a slightly bulging disc. No canal stenosis. No mass effect on the traversing or foraminal nerve roots. At L2-L3 there is a slightly bulging disc. Bilateral facet degenerative change. No canal stenosis. No mass effect on the traversing or foraminal nerve roots. L3-L4 there is a diffusely bulging disc. Advanced bilateral facet degenerative change. Mild canal stenosis. No mass effect on the traversing or foraminal nerve roots. At L4-L5 there is a pseudodisc bulge. Advanced bilateral facet degenerative change. No canal stenosis. Mild mass effect on both L4 foraminal nerve roots. At L5-S1 there is a right foraminal protrusion superimposed upon a bulging disc. Advanced lateral facet degenerative change. No canal stenosis. Moderate compression of the right L5 foraminal nerve root. Limited visualization of the retroperitoneal anatomy reveals no abnormal finding. Psoas and paraspinal muscle groups are symmetric. MR/MR lumbar spine wo con IMPRESSION: There is multilevel degenerative spondylosis of the lumbar spine with grade 1 anterolisthesis of L4 on L5 and L5 on S1 related to advanced facet degenerative changes at each of these 2 levels. There is bone marrow edema involving the pedicles and articular pillars of L5-S1 facet joints that most likely represents aseptic inflammation in the setting of degenerative arthrosis. Mild canal stenosis at L3-L4. A right foraminal protrusion at L5-S1 causes moderate compression of the right L5 foraminal nerve root. There is also mild mass effect on both L4 foraminal nerve roots related to degenerative changes at L4-L5. Electronically signed by: Luis Soni MD 05/03/2024 04:58 PM EDT RP
== END 2024-04-16 17:59 | disposition home or self-care (01) ==
LOC: HO.MRI 17:58
PROVIDERS: PCP Internal Medicine; Visit Provider Internal Medicine
DX: M54.17 Radiculopathy, lumbosacral region (principal)
CPT/HCPCS: 72148

== ENCOUNTER 2024-05-25 15:07 | Outpatient (AMB) | payer MEDICARE, MEDICAID, SELFPAY ==
--- NOTE | 2024-05-25 15:12 | MHC.PC.OV ---
Vital Signs 05/25/24 15:16 Height 5 ft 8 in BMI Reason not done Patient refused/unable BP 130/68 Blood Pressure Location Rt brachial Position Sitting Pulse 101 H Pulse Oximetry (%) 84 L Oxygen Delivery Method Nasal Cannula Intake Visit Reasons: 3 month f/u Allergies alprazolam [From XANAX] Allergy (Unknown, Verified 05/25/24 15:17) drowsiness risperidone [From RISPERDAL] Allergy (Unknown, Verified 05/25/24 15:17) drowsiness tramadol [From ULTRAM] Allergy (Unknown, Verified 05/25/24 15:17) n/v Medication List - Last Reconciled 05/25/24 by Veronique Rivera MD albuterol sulfate 90 mcg/actuation 2 puffs inhalation QID PRN alcohol swabs (Easy Touch Alcohol Prep Pads) topical; atorvastatin 40 mg PO DAILY 90 days blood sugar diagnostic (FreeStyle Lite Strips) 2x/day As directed blood-glucose meter (FreeStyle Lite Meter kit) Check blood sugar twice daily as directed buprenorphine-naloxone 8-2 mg 2 film sublingually BID; +.5 (total 2.5 film) at night buspirone 15 mg PO BID clotrimazole-betamethasone 1-0.05 % 1 appl topical ONCE 30 days dapagliflozin propanediol 10 mg PO DAILY diaper,brief,adult,disposable (Depend Fit-Flex Underwear) Patient uses X-Large pull-ups 3 times per day as directed disposable gloves As directed-size large [disposable wipes As directed] duloxetine 60 mg PO DAILY duloxetine 30 mg PO QAM dupilumab (Dupixent) 200 mg subcut Q2W [id number]-lxrziefit-tcwqkrwc 200-62.5-25 mcg (Trelegy Ellipta) 1 ea inhalation DAILY gabapentin 600 mg PO TID 30 days glipizide 5 mg PO DAILY hydrochlorothiazide 25 mg PO DAILY incontinence pad, liner, disp As directed insulin glargine (Lantus Solostar U-100 Insulin) 10 units (0.1 mL) subcut QPM ipratropium-albuterol 0.5 mg-3 mg(2.5 mg base)/3 mL 3 mL inhalation TID lancets test blood sugar 3 times per day lanolin 1 appl topical DAILY lorazepam 1 mg PO TID PRN metformin 1,000 mg (2 x 500 mg) PO DAILY Oxygen Home Use 3LPM continuous via NC [oxygen-portable concentrator As directed 3 liter flow, continuous use. ] pantoprazole 40 mg PO DAILY 90 days pen needle, diabetic (BD Ultra-Fine Tamia Pen Needle) As directed once daily semaglutide (Ozempic) 0.25 mg (0.368 mL) subcut QWEEK sennosides-docusate sodium 8.6-50 mg (Senokot-S) 2 tab-caps (2 x 8.6-50 mg) PO ONCE 90 days torsemide 20 mg PO DAILY walker As directed [wheelchair As directed] [wheelchair repair Left side of chair is broken] [X-Large pull up/adult diaper Change diaper 3 times a day or as needed for incontinence] Tobacco use date assessed: 05/25/24 Fall risk assessment: No Falls in past year Last assessed Fall Risk: 05/25/24 Dental Screening Dental Screen Date: 05/25/24 Did you have a dental visit in the last 12 months?: No Did you have a dental problem in the last 6 months where you did not have access to dental care?: No Was dental information given to patient?: No HPI 3 month f/u HPI Details Patient is 68-year-old female with a history of bipolar disorder, severe COPD, 4 L of oxygen dependent, chronic lower extremity dermatitis, history of heart failure, history of substance abuse, history of PTSD, type 2 diabetes, venous stasis, hypertension, rheumatoid arthritis, came in today for regular follow-up appointment Having flare-up of COPD for the past few days Coughing up yellow phlegm and feeling more short of breath Taking updraft treatments 3 times a day I have sent antibiotic and prednisone course for the patient Suffers from fibromyalgia and continued to have severe pain all over her body COPD management through Dr Traore guest specialist, patient is on oxygen Dr. Aguirre psychiatrist treating her severe depression and anxiety Patient have chronic incontinence, she is still waiting for her extra-large pull-ups and bed liners Diabetes mellitus controlled, hemoglobin A1c has been stable We will try to get Carlos glucometer approved for the patient as she is having signs of hypoglycemia off and on She suffers from chronic lower back radiculitis to right leg For that she was evaluated by pain management [facility] Medication list reviewed Blood pressure is stable Follow-up 3 months [facility] Medical History PMB (postmenopausal bleeding) CHF (congestive heart failure) Rheumatoid arthritis Fibromyalgia Cellulitis Arthritis History of hepatitis C Asthma Type 2 diabetes mellitus with polyneuropathy Hyperlipidemia LDL goal <100 Morbid obesity due to excess calories BMI 40.0-44.9, adult Swelling of lower extremity Hypertension, essential History of opioid abuse Chronic GERD Lipid disorder COPD, severe Oxygen dependent Depression, major, 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 Mother No problems noted. Brother Diabetes Son No problems noted. Sister No problems noted. Sister No problems noted. Sister No problems noted. Daughter No problems noted. Daughter No problems noted. Social History Household Members: Spouse Housing: Apartment Alcohol intake: never Patient Tobacco Use Status: Former Tobacco user e-Cigarette/Vaping Use: Never Used Second Hand Smoke Exposure: Yes service: No Current occupational status: disabled Cognitive needs: Yes (wheelchair) Hearing needs: No Vision needs: No Female Reproductive History Menstrual Age of Menarche: 13 Questionnaire PHQ-9 Over the last 2 weeks, how often have you been bothered by any of the following problems? 6. Feeling bad about yourself - or that you are a failure or have let yourself or your family down: not at all Depression Screening Interpretation: Negative Depression Screening Done: Yes Source: Developed by Drs. Luis Lema, Jagruti Lovett, Rolando Romero and colleagues, with an educational tish from [employer]. Thrive Questionnaire Date Thrive assessed: 05/25/24 I am a: Patient What is your living situation today?: I choose not to answer this question Within the past 12 months, did the food you bought not last and you didn't have the money to get more?: I choose not to answer this question Within the past 12 months, did you worry whether your food would run out before you got money to buy more?: I choose not to answer this question Do you have trouble paying for medicines?: I choose not to answer this question Do you have trouble getting transportation to medical appointments?: I choose not to answer this question Do you have trouble paying your heating and electricity bill?: I choose not to answer this question Do you have trouble taking care of your child, family member or friend?: I choose not to answer this question Do you have trouble with day-to-day activities such as bathing, preparing meals, shopping, managing finances, etc.?: I choose not to answer this question Are you currently unemployed and looking for a job?: I choose not to answer this question Are you interested in more education?: I choose not to answer this question Please select the resources that you would like help with: None Currently or been in a relationship where the following occur: I choose not to answer THRIVE Score: 0 AUDIT C Alcohol Use Questionnaire (AUDIT-C) 1. How often do you have a drink containing alcohol?: Never Total Score: 0 WILIAM-7 AMB Questionnaire WILIAM-7 Date WILIAM - 7 assessed: 11/26/23 Feeling nervous, anxious, or on edge: 0 = Not at all Not being able to stop or control worryin = Not at all Worrying too much about different things: 0 = Not at all Trouble relaxin = Not at all Being so restless that it is hard to sit still: 0 = Not at all Becoming easily annoyed or irritable: 0 = Not at all Feeling afraid as if something awful might happen: 0 = Not at all Total WILIAM-7 score (0-4 normal; 5-9 mild; 10-14 moderate; 15-21 severe): 0 Source: Developed by Drs. Luis Lema, Jagruti Lovett, Rolando Romero and colleagues, with an educational tish from [employer]. Review of Systems Const Denies chills and Denies fever(s) ENT Denies epistaxis and Denies nasal discharge Card Denies chest pain Resp Denies hemoptysis GI Denies diarrhea and Denies nausea Skin/Breast Denies rash Neuro Reports no additional complaints Psych Reports no additional complaints Endo Reports no additional complaints Physical exam (Primary Care) Vital Signs: Last Vital Signs Pulse 101 H 05/25/24 15:16 BP 130/68 05/25/24 15:16 Pulse Ox 84 L 05/25/24 15:16 Oxygen Delivery Method Nasal Cannula 05/25/24 15:16 Tobacco/Smoking Status: Tobacco use Status Tobacco use date assessed 05/25/24 05/25/24 15:17 Patient Tobacco Use Status Former Tobacco user 05/25/24 15:13 e-Cigarette/Vaping Use Never Used 05/25/24 15:13 Depression Screening Interpretation: Negative Thrive Assessment: Date of Thrive Assessment Date Thrive assessed 05/25/24 05/25/24 15:13 Currently or been in a relationship where the following occur: I choose not to answer Const Other: Patient is sitting in wheelchair in no acute distress with her [employer] General: cooperative, comfortable and no acute distress Orientation/consciousness: patient oriented x3 HENMT Head: Yes normocephalic Eyes General: appearance normal, both eyes and all related structures Neck Neck: Yes supple Resp Other: Fair air movement, mild wheezing both side basal Effort & Inspection: no stridor Cardio Rhythm: regular rhythm Heart sounds: S1 normal heart sound present and S2 normal heart sound present Skin General skin exam: turgor normal Neuro General: patient oriented x3, tone normal and moves all extremities Coding Level of Care Code Est Pt Level 4 (17446) Complex EM visit Add On G2211 Diagnoses Asthma exacerbation in COPD J44.1 Constipation by delayed colonic transit K59.01 Fibromyalgia M79.7 Stress incontinence of urine N39.3 Urinary Incontinence type: stress incontinence Type 2 diabetes mellitus with polyneuropathy E11.42 Morbid obesity due to excess calories E66.01 Hypertension, essential I10 Chronic GERD K21.9 Lipid disorder E78.9 Oxygen dependent Z99.81 Recurrent major depressive disorder, in partial remission F33.41 Active/Remission status: in partial remission Assessment & Plan Assessment & Plan (1) Asthma exacerbation in COPD: Code(s): J44.1 - Chronic obstructive pulmonary disease with (acute) exacerbation Category: Medical (2) Constipation by delayed colonic transit: Code(s): K59.01 - Slow transit constipation Category: Medical (3) Fibromyalgia: Code(s): M79.7 - Fibromyalgia Category: Medical (4) Urine incontinence: Code(s): R32 - Unspecified urinary incontinence Category: Medical Qualifiers: Urinary Incontinence type: stress incontinence Qualified Code(s): N39.3 - Stress incontinence (female) (male) (5) Type 2 diabetes mellitus with polyneuropathy: Code(s): E11.42 - Type 2 diabetes mellitus with diabetic polyneuropathy Category: Medical (6) Morbid obesity due to excess calories: Code(s): E66.01 - Morbid (severe) obesity due to excess calories Category: Medical (7) Hypertension, essential: Code(s): I10 - Essential (primary) hypertension Category: Medical (8) Chronic GERD: Code(s): K21.9 - Gastro-esophageal reflux disease without esophagitis Category: Medical (9) Lipid disorder: Code(s): E78.9 - Disorder of lipoprotein metabolism, unspecified Category: Medical (10) Oxygen dependent: Code(s): Z99.81 - Dependence on supplemental oxygen Category: Medical (11) Depression, major, recurrent: Code(s): F33.9 - Major depressive disorder, recurrent, unspecified Category: Medical Qualifiers: Active/Remission status: in partial remission Qualified Code(s): F33.41 - Major depressive disorder, recurrent, in partial remission Plan Patient is 68-year-old female with a history of bipolar disorder, severe COPD, 4 L of oxygen dependent, chronic lower extremity dermatitis, history of heart failure, history of substance abuse, history of PTSD, type 2 diabetes, venous stasis, hypertension, rheumatoid arthritis, came in today for regular follow-up appointment Having flare-up of COPD for the past few days Coughing up yellow phlegm and feeling more short of breath Taking updraft treatments 3 times a day I have sent antibiotic and prednisone course for the patient Suffers from fibromyalgia and continued to have severe pain all over her body COPD management through Dr Traore guest specialist, patient is on oxygen Dr. Aguirre psychiatrist treating her severe depression and anxiety Patient have chronic incontinence, she is still waiting for her extra-large pull-ups and bed liners Diabetes mellitus controlled, hemoglobin A1c has been stable We will try to get Carlos glucometer approved for the patient as she is having signs of hypoglycemia off and on She suffers from chronic lower back radiculitis to right leg For that she was evaluated by pain management [facility] Medication list reviewed Blood pressure is stable Follow-up 3 months Medications: New prednisone 20 mg PO DAILY 5 tabs 0RF 5 days azithromycin Take 2 tablets today then 1 daily 250 mg PO ONCE 6 tabs 0RF 5 days J06.9 - Acute upper respiratory infection, unspecified Changed From sennosides-docusate sodium 8.6-50 mg 1 tab-cap PO BEDTIME 30 days 30 tabs 8RF K59.03 - Drug induced constipation, T40.2X5A - Adverse effect of other opioids, initial encounter To sennosides-docusate sodium 8.6-50 mg (Senokot-S) 1 tab-cap PO BEDTIME 90 tabs 3RF 90 days K59.03 - Drug induced constipation, T40.2X5A - Adverse effect of other opioids, initial encounter
[2024-05-25 15:16] VITALS: BP 130/68; PULSE 101; O2SAT 84
== END 2024-05-25 15:27 | disposition home or self-care (01) ==
LOC: HO.HMCC 15:08
PROVIDERS: PCP Internal Medicine; Visit Provider Internal Medicine
DX: E11.9 Type 2 diabetes mellitus without complications (principal)

== ENCOUNTER → 2024-05-25 15:07 | Outpatient (BNVA) | payer MEDICARE, MEDICAID, SELFPAY | PROVIDERS: PCP Internal Medicine; Visit Provider Internal Medicine | DX: J44.1 Chronic obstructive pulmonary disease with (acute) exacerbation (principal); K59.01 Slow transit constipation; M79.7 Fibromyalgia; N39.3 Stress incontinence (female) (male); E11.42 Type 2 diabetes mellitus with diabetic polyneuropathy; E66.01 Morbid (severe) obesity due to excess calories; I10 Essential (primary) hypertension; K21.9 Gastro-esophageal reflux disease without esophagitis; E78.9 Disorder of lipoprotein metabolism, unspecified; F33.41 Major depressive disorder, recurrent, in partial remission; Z99.81 Dependence on supplemental oxygen | CPT/HCPCS: 83036; 99212 ==

== ENCOUNTER 2024-09-03 14:08 | Outpatient (REF) | payer MEDICARE, MEDICAID, SELFPAY ==
--- OUTSIDE RECORDS SUMMARY | 2024-09-03 14:47 | XMS_ITS | Data Portability ---
Author Organization [place] - [facility] Address [address] [place] [address] Care Team Providers Care Creative Intern Name Role Phone FABIO RAMAN Primary Care Provider [phone] Assessment Encounter Date Assessment Date Assessment LastModified by Organization Details LastModified Time 11/20/2020 11/20/2020 PATIENT WAS NOT SEEN- DO NOT BILL Not available 11/20/2020 20:10:36 11/21/2020 11/21/2020 Overview/History : 65-year-old female who is [facility] to [facility] with a past medical history significant for COPD, on 5 L home oxygen, diabetes, coronary artery disease, hepatitis C, high cholesterol, hypertension, obesity, obstructive sleep apnea, PTSD, anxiety, depression, in chronic pain syndrome being seen for left knee pain. She reports the pain has been going on for months, she was seen by vascular in August 2020 who recommended she have an MRI and ortho consult. She is at the point where it is difficult for her to ambulate and requires max assist to the bathroom. She is a poor historian with inconsistent story, her helps provide review of systems. She denies any chest pain but admits to shortness of breath. She denies any known injury to the left knee but has severe pain with palpation or movement. Exam: *Limited physical exam as care was escalated to ED Pt is alert, in pain and moderate increase WOB worse with exertion She is altered, not making sense to certain questions when asked, her reports she has been out of it all morning. Glucose level 181. Audible exp wheezes L knee with swelling and severe pain to palpation DDx considered, but not limited to: DVT/PE possible LLE swelling, hypoxic at 82% on 5L NC and tachycardic ACS possible Bakers cyst considered COPD exac/pneumonia possible- increase WOB and hypoxia RUE cellulitis possible- scratches noted, area with erythema and warmth CVA considered- no focal deficits, confusion likely r/t hypoxia Work up/Results: Care escalated to ED Plan/Discussion: Discussed with patient since she has had limited mobility, is not on blood thinners and having severe pain in LLE with swelling advised she be seen in ED. She is also tachycardic and hypoxic. Pt & is in agreement with plan. EMS called, report given, pt transported to [facility] ED for further workup. All questions answered prior to departure. In order to obtain further information and compare any laboratory results/values, I have accessed patient records on the [employer]. This information was pertinent in my medical decision making today. Proper Personal Protective Equipment (PPE), including gloves, eye protection and masks were donned and doffed appropriately and all equipment cleaned using approved technique with germicidal disposable wipes prior to and after care of this patient according to [facility] infection prevention protocols. Time On Scene with Patient: 00:34:41 [email or web address] Not available 11/21/2020 13:10:17 Plan of Treatment Reminders Order Date Submit Date Provider Last Modified By Organization Details Last Modified Time Details Appointments None record ed. Lab None record ed. Referral None record ed. Procedures None record ed. Surgeries None record ed. Imaging None record ed. Medication Orders None record ed. Patient TargetsNo targets recorded. Patient Instructions Encounter Date Encounter Id Patient Instructions Last Modified By Organization Details Last Modified Time 11/21/2020 [id number] Pt->ED [email or web address] Not available 11/21 12:51:59 Reason for Referral None Reported. Procedures Surgical History Date Name Laterality Status Provider Name and Address Organization Details Recorded Time 11/22/19 21 Medication Review completed Raquel Davidson NP [address], [place], [address], [place] [facility] 11/21/2020 12:51:46 Imaging Results None recorded. Procedure Notes None recorded. Medical Equipment None Reported. Allergies Allergen ID Allergen Name Allergen Category Reaction Reaction Severity Criticality Documentation Date Start Date Code Code System Note Provider Name and Address Organization Details Recorded Time 075917 Risperdal medicatio n Not available Not available Not available 11/21/2020 79705 8 RxNorm Raquel Davidson NP [address] [facility] [place], [address], [place] [facility] 11:06:41 [id number] Xanax medicatio n Not available Not available Not available 11/21/202045577 3 RxNorm Raquel Davidson, PECAN GROWER [address], [facility] [place], [address], [place] [facility] 11:06:46 [id number] Ultram medicatio n Not available Not available Not available 11/21/2020 03190 6 RxNorm Raquel Davidson, PECAN GROWER [address], [facility] [place], [address], [place] [facility] 11:18:21 Medications Name Sig Start Date Stop Date Status Note LastModified by Organization Details LastModified Time amoxicillin 500 mg capsule TAKE DIRECTED BY OFFICE CELI HAS CORRECT DIRECTION S* 11/21 completed Not Available Not Available Not Available furosemide 40 mg tablet TAKE 1 TABLET BY MOUTH EVERY DAY active Not Available Not Available No t Available atorvastati n 40 mg tablet TAKE 1 TABLET BY MOUTH EVERY DAY active Not Available Not Available No t Available prednisone 10 mg tablet TAKE 3 TABLETS BY MOUTH FOR 3 DAYS 2 TABS FOR 3 DAYS 1 TAB FOR 3 DAYS THEN 1/2 TAB FOR 3 DAYS active Not Available Not Available No t Available gabapentin 600 mg tablet TAKE 1 TABLET 3 TIMES A DAY active Not Available Not Available No t Available doxycycline hyclate 100 mg capsule TAKE 1 CAPSULE BY MOUTH TWICE A DAY FOR 10 DAYS 11/21 completed Not Available Not Available Not Available ipratropium 0.5 mg-albutero l 3 mg (2.5 mg base)/3 mL nebulizatio n soln INHALE CONTENTS OF 1 VIAL USING NEBULIZER FOUR TIMES A DAY active Not Available Not Available No t Available prednisone 20 mg tablet TAKE 3 TABS/DAY FOR 3 DAYS, 2/DAY FOR 3 DAYS, 1/DAY FOR 3 DAYS active Not Available Not Available No t Available prednisone 5 mg tablet PLEASE SEE ATTACHED FOR DETAILED DIRECTION S active Not Available Not Available No t Available amlodipine 5 mg tablet TAKE 1 TABLET BY MOUTH EVERY DAY active Not Available Not Available No t Available doxycycline monohydrate 100 mg tablet 11/21 completed Not Available Not Available Not Available amoxicillin 875 mg tablet TAKE 1 TABLET BY MOUTH TWICE A DAY 11/21 completed Not Available Not Available Not Available lorazepam 0.5 mg tablet TAKE 1 TABLET BY MOUTH THREE TIMES A DAY NEEDED active Not Available Not Available No t Available cephalexin 500 mg capsule TAKE 1 CAPSULE BY MOUTH FOUR TIMES A DAY FOR 10 DAYS 11/21 completed Not Available Not Available Not Available pantoprazol e 40 mg tablet,hiro yed release TAKE 1 TABLET BY MOUTH EVERY DAY active Not Available Not Available No t Available prednisone 50 mg tablet TAKE 1 TABLET BY MOUTH DAILY FOR 2 DAYS active Not Available Not Available No t Available losartan 25 mg tablet TAKE 1 TABLET BY MOUTH EVERY DAY active Not Available Not Available No t Available nicotine 21 mg/24 hr daily transdermal patch active Not Available Not Available Not Available montelukast 10 mg tablet TAKE 1 TABLET BY MOUTH IN THE EVENING active Not Available Not Available No t Available furosemide 20 mg tablet TAKE 3 TABLETS BY MOUTH EVERY DAY FOR 3 DAY active Not Available Not Available No t Available lorazepam 1 mg tablet TAKE 1 TABLET BY MOUTH THREE TIMES A DAY NEEDED active Not Available Not Available No t Available albuterol sulfate HFA 90 mcg/actuati on aerosol inhaler INHALE 2 PUFFS INHALATIO N 4 TIMES A DAY NEEDED FOR WHEEZING/ SHORTNESS OF BREATH. USE WITH SPACER active Not Available Not Available No t Available glipizide 5 mg tablet TAKE 1 TABLET BY MOUTH EVERY DAY active Not Available Not Available No t Available buspirone 15 mg tablet TAKE 1 TABLET BY MOUTH TWICE A DAY DIRECTED active Not Available Not Available No t Available Vitamin D3 25 mcg (1,000 unit) tablet TAKE 1 TABLET BY MOUTH EVERY DAY active Not Available Not Available No t Available Senna Plus 8.6 mg-50 mg tablet TAKE 1 TABLET BY MOUTH AT BEDTIME active Not Available Not Available No t Available duloxetine 30 mg capsule,del ayed release TAKE 1 CAPSULE BY MOUTH EVERY MORNING TAKE DULOXETIN E 60 MG IN THE EVENING active Not Available Not Available No t Available duloxetine 60 mg capsule,del ayed release TAKE 1 CAPSULE BY MOUTH EVERY DAY active Not Available Not Available No t Available Januvia 50 mg tablet TAKE 1 TABLET BY MOUTH EVERY DAY DIRECTED active Not Available Not Available No t Available buprenorphi ne 8 mg-naloxone [address] 2.5 FILMS UNDER THE TONGUE ONCE DAILY active Not Available Not Available No t Available Daliresp 500 mcg tablet TAKE 1 TABLET BY MOUTH EVERY DAY active Not Available Not Available No t Available Chantix Continuing Month Box 1 mg tablet TK DIRECTED active Not Available Not Available No t Available Chantix Starting Month Box 0.5 mg (11)-1 mg (42) tablets in dose pack TK 1 T PO BID active Not Available Not Available No t Available Spiriva Respimat 2.5 mcg/actuati on solution for inhalation INHALE 2 PUFFS DAILY active Not Available Not Available No t Available Breo Ellipta 200 mcg-25 mcg/dose powder for inhalation INHALE 1 PUFF BY MOUTH DAILY active Not Available Not Available No t Available Vitals Date Recorded Heart rate Oxygen saturation Oxygen saturation in Arterial blood by Pulse oximetry Inhaled oxygen flow rate Respiratory rate Body temperature Provider Name and Address Organization Details Last Updated DateTime 110 /min 82 % 82 % 5 L/min 20 /min 97.3 [degF] Not Available [facility] 11:13:12 Social History Question Answer Notes LastModified by Organizat ion Details LastModified Time Tobacco Smoking Status Never Smoker Raquel Davidson NP [address] [place], [address], [place] [facility] 11/21/2020 11:07:32 What Is Your Code Status? Full Code [email or web address] Information not available 11/21/2020 Within The Past 12 Months, Has It Happened That The Food You Bought Just Didn't Last And You Didn't Have Money To Get More. No Information not available 11/21/2020 Within The Past 12 Months, Have You Worried That Your Food Would Run Out Before You Got Money To Buy More. No [email or web address] Information not available 11/21/2020 Fall Risk: Do You Feel Unsteady When Standing Or Walking? Yes [email or web address] Information not available 11/21/2020 We Know That How And When People Interact With Friends And Family Can Be Very Different From Person To Person. How Often Do You Have The Opportunity To See Or Talk To People That You Care About And Feel Close To? (Ex: Talking To Friends On The Phone Or Visiting Friends Or Family Or Going To Adventist Or Club Meetings) 5 Or More Times Per Week [email or web address] Information not available 11/21/2020 We Know From Many Of Our Patients That Covering All Of Their Costs Can Be Difficult At Times. This Can Cause Stress And Impact Health. In The Past Year, Have You Been Unable To Get Any Of The Following When It Was Really Needed? No [email or web address] Information not available 11/21/2020 What Is Your Housing Situation Today? I Have Housing Information not available 11/21/2020 Would You Like Help Connecting To Resources? None [email or web address] Information not available 11/21/2020 Sex: Unknown Functional Status None recorded. Mental Status None recorded. Family History Relationship Description Onset Age of this Age Resolved Age Notes LastModified by Organization Details LastModified Time Brother Diabetes mellitus [email or web address] Not available 2020 12:54:16 Medical History Condition Response Diabetes Y Coronary Artery Disease Y High Cholesterol Y Pulmonary Embolism N Cancer N Hypertension Y Stroke N Asthma N COPD Y Depression N Kidney Disease N Gynecological HistoryNo gynecological history recorded. Obstetrics History GPAL:G 0 P 0 0 0 0 Past Encounters Encounter ID Performer Location Encounter Start Date Encounter Closed Date Diagnosis/Indication Diagnosis SNOMED-CT Code Diagnosis ICD10 Code Diagnosis Note [id number] NATHALIA FERNANDEZ NP [facility] [address] [place] [address] 11/20/2020 16:59:20 11/21/2020 10:51:30 [id number] Raquel Davidson NP [facility] [address] [place] [address] 11/21/2020 10:51:54 11/22/2020 15:24:04 Hypoxia 726053653 R09.02 Tachycardia 8668581 R00. 0 Chronic ob structive pulmonary disease 59366579 J44.9 Diabetes mellitus 849963 09 E11.9 Pain in right arm 547186 004 M79.601 Pain in left knee 527681 5876 68162 M25.562 Health Concerns Section Related Observation LastModified by Organization Detai ls LastModified Time None Recorded Concern Status LastModified by Organization Details LastModified Time None Recorded Advance Directives Directive None Recorded Payers Encounter Date Sequence Insurance Name Policy Number Policy Guajardo Covered Member ID Guajardo Member ID Guarantor Name 11/20/2020 1 [facility] - DOS PRIOR TO 2022 - DUAL ELIGIBLE (MEDICARE REPLACEMENT/ADV ANTAGE - HMO) Celi Munoz [id number] Celi Baltazar Alexander 11/20/2020 2 [place] B[place]: [facility] Celi Appleedo [id number] Celi Baltazar Alexander 11/21/2020 1 [facility] - DOS PRIOR TO 2022 - DUAL ELIGIBLE (MEDICARE REPLACEMENT/ADV ANTAGE - HMO) Celi Appleedo [id number] Celi Baltazar Alexander 11/21/2020 2 [place]: [facility] Celi Appleedo [id number] Celi Appleedo Notes Date Note Type Note Provider Name and Address Organization Details Recorded Time 11/20/2020 text/html PATIENT WAS NOT SEEN- DO NOT BILL NATHALIA FERNANDEZ NP [address], [place], [address], [place] [facility] 11/20/2020 20:10:45 11/21/2020 text/html 65yo female who is new to with a PMHx of COPD on 5L NC, diabetes, HTN, HLD, Anxiety, Asthma, Chronic pain syndrome and hepatitis being seen for leg pain that has been going on for months but getting worse. Reportedly her PCP sent her to vascular in August who she reports pain was not a vascular thing. She denies any injury to it. Severe pain 10/10 L knee up L thigh. She also reports R arm pain and redness following Covid injection on 11/15/20. Denies any chest pain but admits to SOB. Her reports she can barely walk or bear weight on LLE. No N/V/D. She is a poor historian. Her story is inconsistent, ROS provided by her spouse. Raquel Davidson NP [address], [place], [address], [place] [facility] 11/21/2020 13:10:56 OBGyn Episode No OBEpisode recorded.
[2024-09-03 16:59] LABS: Estimated Average Glucose 126 mg/dL; Hemoglobin A1C 103.2828 umol/L
[2024-09-03 17:14] LABS: Vitamin B12 817 pg/mL (200-900)
[2024-09-03 17:23] LABS: Alanine Aminotransferase 14 U/L (0-31); Alkaline Phosphatase 82 U/L (39-117); Anion Gap 19 (12-20); Aspartate Amino Transferase 29 U/L (5-31); Bilirubin Total 0.2 mg/dL (0.0-1.0); Blood Urea Nitrogen 22 mg/dL (9-16); Calcium 9.4 mg/dL (8.4-10.2); Carbon Dioxide 34 mmol/L (22-29); Chloride 93 mmol/L (96-108); Estimated Glomerular Filt Rate > 60; Glucose Random 75 mg/dL (60-115); Potassium 3.5 mmol/L (3.3-5.1); Sodium 142 mmol/L (135-145); TSH reflex Free T4 0.02 uIU/mL (0.32-4.0)
[2024-09-03 18:37] LABS: Free T4 (Free Thyroxine) 0.88 ng/dL (0.71-1.85)
[2024-09-05 06:03] LABS: LDL Cholesterol Direct 124 mg/dL (<100)
[2024-09-08 16:28] LABS: Vitamin D 25-OH, D2 <4 ng/mL; Vitamin D 25-OH, D3 25 ng/mL; Vitamin D 25-OH, Total 25 ng/mL (30-100)
== END 2024-09-03 14:09 | disposition home or self-care (01) ==
LOC: HO.HMGCLDS 14:08
PROVIDERS: PCP Internal Medicine; Visit Provider Internal Medicine
DX: E11.42 Type 2 diabetes mellitus with diabetic polyneuropathy (principal); I10 Essential (primary) hypertension; K21.9 Gastro-esophageal reflux disease without esophagitis; E78.9 Disorder of lipoprotein metabolism, unspecified; J44.9 Chronic obstructive pulmonary disease, unspecified; F33.41 Major depressive disorder, recurrent, in partial remission; G89.4 Chronic pain syndrome; Z99.81 Dependence on supplemental oxygen
CPT/HCPCS: 36415; 80053; 82306; 82607; 83036; 83721; 84439; 84443; 85025; 96127; 99212

== ENCOUNTER 2024-09-08 14:40 | Outpatient (REF) | payer MEDICARE, SELFPAY ==
--- OUTSIDE RECORDS SUMMARY | 2024-09-08 15:56 | XMS_ITS | Clinical Summary ---
Author Organization [facility] Address [address] [place] [address] Phone Care Team Providers Care Plant Chief Name Role Phone Unavailable Primary Care Provider Unavailabl e Allergies Active Allergy Reactions Criticality Noted Date Comments Alprazolam 08/22/2021 Risperidone 08/22/2021 Tramadol 08/22/2021 explains that it can interfere with her methadone treatment. NOT an allergy Medications albuterol HFA (PROVENTIL HFA;VENTOLIN HFA) 108 (90 Base) MCG/ACT inhaler 2 Active Alcohol Swabs (Comfort Touch Alcohol Prep) 70 % pads 2 Active amLODIPine (NORVASC) 5 MG tablet 2 Active atorvastatin (LIPITOR) 40 MG tablet 2 Active Blood Glucose Monitoring Suppl (FreeStyle Lite) w/Device kit USE DIRECTED TO TEST BLOOD SUGAR 1 Active Buprenorphine HCl-Naloxone HCl (SUBOXONE) 8-2 MG per SL film PLACE 2.5 FILMS UNDER THE TONGUE EVERY DAY 1 Active busPIRone (BUSPAR) 15 MG tablet 2 Active cephalexin (KEFLEX) 500 MG capsule Take 500 mg by mouth 2 Active cholecalciferol (VITAMIN D-3) 25 MCG (1000 UT) tablet Vitamin D3 25 mcg (1,000 unit) tablet TAKE 1 TABLET BY MOUTH EVERY DAY Active Farxiga 5 MG tablet 1 Active doxycycline (VIBRAMYCIN) 100 MG capsule TAKE 1 CAPSULE BY MOUTH EVERY 12 HOURS FOR 1 DAY 1 Active DULoxetine (CYMBALTA) [address] capsule 2 Active Dupixent 200 MG/1.14ML solution prefilled syringe 2 Active Trelegy Ellipta 200-62.5-25 MCG/INH aerosol powder 2 Active furosemide (LASIX) 40 MG tablet 2 Active gabapentin (NEURONTIN) 600 MG tablet 2 Active glipiZIDE (GLUCOTROL) 5 MG tablet 2 Active FREESTYLE LITE test strip 2 Active hydroCHLOROthia zide 25 MG tablet Take 25 mg by mouth 1 (one) time each day 2 Active Lantus SoloStar 100 UNIT/ML injection 1 Active Ultracare Pen Phelps 32G X 4 MM [facility] DIRECTED ONCE DAILY 1 Active ipratropium-alb uterol (DUO-NEB) 0.5-2.5 mg/3 mL nebulizer solution 2 Active Comfort Touch Plus Lancets 30G misc 2 Active LORazepam (ATIVAN) 1 MG tablet 2 Active losartan (COZAAR) 25 MG tablet losartan 25 mg tablet TAKE 1 TABLET BY MOUTH EVERY DAY Active metFORMIN (GLUCOPHAGE) 500 MG tablet 2 Active pantoprazole (PROTONIX) 40 MG EC tablet pantoprazole 40 mg tablet,delayed release TAKE 1 TABLET BY MOUTH EVERY DAY 8 Active QUEtiapine (SEROquel) 25 MG tablet TAKE 1 TABLET BY MOUTH THREE TIMES A DAY NEEDED FOR AGITATION 2 Active Daliresp 500 MCG tablet 2 Active Senna Plus 8.6-50 MG per tablet 2 Active SITagliptin (Januvia) 50 MG tablet Januvia 50 mg tablet TAKE 1 TABLET BY MOUTH EVERY DAY DIRECTED Active Active Problems Problem Noted Date Diagnosed Date Acute exacerbation of chronic obstructive pulmon khalida disease 08/22/2021 Awktu-rp-pnhlolf respiratory failure 08/22/2021 Anxiety 08/22/2021 Asthma 08/22/2021 Overview (08/22/2021): Patient has a history of asthma and seasonal allergies;she is on advair at home. Since she lives alone,we will start foradil and flovent BID also we will give albuterol via updraft for wheezing and SOB. Chronic pain syndrome 08/22/2021 Depressive disorder 08/22/2021 Diabetes mellitus 08/22/2021 Hyperlipidemia 08/22/2021 Hypertensive disorder 08/22/2021 Indigestion 08/22/2021 Lumbar radiculopathy 08/22/2021 Menopause present 08/22/2021 Obstructive sleep apnea syndrome 08/22/2021 Osteoporosis 08/22/2021 Posttraumatic stress disorder 08/22/2021 Respiratory failure 08/22/2021 Severe obesity 08/22/2021 Substance abuse 08/22/2021 Swelling of lower limb 08/22/2021 Tobacco dependence syndrome 08/22/2021 Viral hepatitis C 08/22/2021 Nonspecific tuberculin test reaction 06/13/2015 Parasitophobia 10/25/2014 Blood chemistry outside reference range 04/12/20 13 Overview (08/22/2021): Positive T-Spot. Pt did not keep 2 sched appts. Letter sent to the referring source. Mammography abnormal 01/30/2007 Immunizations Name Administration Dates Next Due Pneumococcal Polysaccharide 12/17/2013, 8 Social History Tobacco Use Types Packs/Day Years Used Date Smoking Tobacco: Never Assessed Comments Unknown Sex and Gender Information Value Date Recorded Sex Assigned at Not on file Legal Sex Female 2:41 PM EST Gender Identity Not on file Sexual Orientation Not on file Plan of Treatment Health Maintenance Due Date Last Done Comments Breast Cancer Screening 1955 Colorectal Cancer Screening: Annual FOBT 10/10/2004 Colorectal Cancer Screening: Colonoscopy 10/10/2004 Colorectal Cancer Screening: Sigmoidoscopy 10/10/2004 Pneumococcal Vaccine: 65+ Years (2 of 2 - PCV) 10/10/2020 12/17/2013, 08/23/2007 Diabetes: Hemoglobin A1C 07/25/2021 Diabetes: Ophthalmology Exam 07/25/2021 Diabetes: Pedal Pulse Checked 07/25/2021 Diabetes: Sensory Foot Exam 07/25/2021 Diabetes: Visual Foot Exam 07/25/2021 Influenza Vaccine (#1) 2024 Hepatitis B Vaccine Aged Out No longe r eligible based on patient's age to complete this topic Insurance [facility] [place] ([id number]) [facility] [place] ([id number][place]
--- OUTSIDE RECORDS SUMMARY | 2024-09-08 15:56 | XMS_ITS | Data Portability ---
Author Organization [facility] [employer] [place], [place] - Count includes the [facility] Address [address] [place] [phone] Care Team Providers Care Hand Mounter Name Role Phone [facility] Primary Care Provider Assessment No assessment recorded. Plan of Treatment Reminders Order Date Submit Date Provider Last Modified By Organization Details Last Modified Time Details Appointments None recorded. Lab rapid SARS CoV 2 Ag, QL IA, respiratory specimen 2023 [facility], [address] [place] [address], [id number], 4 20:00:50 rapid flu (A+B) 2023 [facility], [address] [place] [address], [id number], 4 20:01:14 Referral None recorded. Procedures None recorded. Surgeries None recorded. Imaging None recorded. Medication Orders furosemide 20 mg tablet 2023 pjansson Not available 4 19:26:41 Patient TargetsNo targets recorded. Patient InstructionsNo instructions recorded. Reason for Referral None Reported. Results Created Date Observation Date Name Description Value Unit Range Abnormal Flag Note LastModifiedBy Organization Detail LastModifiedTime Result Notes None recorded. Medical Equipment None Reported. Medications Name Sig Start Date Stop Date Status Note LastModified by Organization Details LastModified Time comfrt touch pad alc prep active Not Available Not Available Not Available furosemide 40 mg tablet TAKE 1 TABLET BY MOUTH EVERY DAY active Not Available Not Available No t Available atorvastatin 40 mg tablet TAKE 1 TABLET BY MOUTH EVERY DAY active Not Available Not Available No t Available metformin 500 mg tablet TAKE 2 TABLETS BY MOUTH EVERY DAY WITH MEALS active Not Available Not Available No t Available prednisone 10 mg tablet TAKE 1 TABLET BY MOUTH EVERY DAY FOR 5 DAYS active Not Available Not Available No t Available gabapentin 600 mg tablet TAKE 1 TABLET BY MOUTH THREE TIMES DAILY active Not Available Not Available Not Available ipratropium 0.5 mg-albuterol 3 mg (2.5 mg base)/3 mL nebulization soln INHALE 1 VIAL VIA NEBULIZER 4 TIMES A DAY active Not Available Not Available Not Available torsemide 20 mg tablet TAKE 1 TABLET BY MOUTH EVERY DAY active Not Available Not Available No t Available albuterol sulfate 2.5 mg/3 mL (0.083 %) solution for nebulization INHALE 1 VIAL VIA NEBULIZER EVERY 6 HOURS active Not Available Not Available No t Available azithromycin 250 mg tablet TAKE 1 TABLET BY MOUTH EVERY DAY FOR 4 DAYS active Not Available Not Available No t Available meloxicam 15 mg tablet TAKE 1 TABLET BY MOUTH EVERY DAY active Not Available Not Available No t Available cephalexin 500 mg capsule TAKE 1 TABLET BY MOUTH 4 TIMES A DAY FOR 5 DAYS active Not Available Not Available N ot Available pantoprazole 40 mg tablet,delay ed release TAKE 1 TABLET BY MOUTH EVERY DAY active Not Available Not Available No t Available clotrimazole -betamethaso ne 1 %-0.05 % topical cream APPLY 1 APPLICATION TOPICALLY FOR 30 DAYS active Not Available Not Available Not Available gabapentin 300 mg capsule TAKE 2 CAPSULES BY MOUTH 3 TIMES A DAY active Not Available Not Available Not Available aspirin 81 mg chewable tablet CHEW 1 TABLET BY MOUTH EVERY DAY active Not Available Not Available No t Available hydrochlorot hiazide 25 mg tablet TAKE 1 TABLET BY MOUTH EVERY DAY active Not Available Not Available No t Available furosemide 20 mg tablet Take 2 tablets by oral route. 2023 active Not Available Not Available Not Avai lable lorazepam 1 mg tablet TAKE 1 TABLET BY MOUTH THREE TIMES DAILY NEEDED active Not Available Not Available No t Available albuterol sulfate HFA 90 mcg/actuatio n aerosol inhaler INHALE 2 PUFFS BY MOUTH 4 TIMES A DAY NEEDED FOR WHEEZING/SH ORTNESS OF BREATH. USE WITH SPACER active Not Available Not Available Not Available glipizide 5 mg tablet TAKE 1 TABLET BY MOUTH EVERY DAY active Not Available Not Available No t Available amoxicillin 875 mg-potassium clavulanate 125 mg tablet TAKE 1 TABLET BY MOUTH EVERY 12 HOURS FOR 5 DAYS active Not Available Not Available N ot Available buspirone 15 mg tablet TAKE 1 TABLET BY MOUTH TWICE DAILY DIRECTED active Not Available Not Available No t Available Senna Plus 8.6 mg-50 mg tablet TAKE 2 TABLETS BY MOUTH DAILY AT BEDTIME active Not Available Not Available N ot Available Alcohol Prep Pads active Not Available Not Available Not Available duloxetine 30 mg capsule,hiro yed release TAKE 3 CAPSULES BY MOUTH EVERY DAY active Not Available Not Available No t Available duloxetine 60 mg capsule,hiro yed release TAKE 1 CAPSULE BY MOUTH EVERY DAY active Not Available Not Available No t Available FreeStyle Lite Strips active Not Available Not Available Not Available Lantus Solostar U-100 Insulin 100 unit/mL (3 mL) subcutaneous pen active Not Available Not Available Not Available buprenorphin e 8 mg-naloxone [address] 2.5 FILMS UNDER THE TONGUE EVERY DAY active Not Available Not Available No t Available roflumilast 500 mcg tablet TAKE 1 TABLET BY MOUTH EVERY DAY FOR 30 DAYS active Not Available Not Available No t Available Comfort EZ Pen Union 32 gauge x 5/32 active Not Available Not Available Not Available Comfort EZ Pen Union 33 gauge x 5/32 active Not Available Not Available Not Available Farxiga 5 mg tablet TAKE 1 TABLET BY MOUTH EVERY DAY active Not Available Not Available No t Available Dupixent 200 mg/1.14 mL subcutaneous syringe active Not Available Not Available Not Available Pure Comfort Safety Lancets 30 gauge active Not Available Not Available Not Available Trelegy Ellipta 200 mcg-62.5 mcg-25 mcg powder for inhalation INHALE 1 PUFFS BY MOUTH EVERY DAY AT THE SAME TIME active Not Available Not Available No t Available Ozempic 0.25 mg or 0.5 mg (2 mg/3 mL) subcutaneous pen injector 0.25 MG (0.368 ML) SUBCUTANEOU SLY EVERY WEEK FOR 4 WEEKS active Not Available Not Available No t Available Vitals Date Recorded Oxygen saturation Oxygen saturation in Arterial blood by Pulse oximetry Inhaled oxygen flow rate Body weight Body temperature Heart rate Respiratory rate Systolic blood pressure Diastolic blood pressure Provider Name and Address Organization Details Last Updated DateTime 4 95 % 95 % 4 L/min 907532. 08 g 98.7 [degF] 110 /min 20 /min 142 mm[Hg] 98 mm[Hg] Not Available [facility] 4 13:14:06 Date Recorded Heart rate Body height Body temperature Body weight Respiratory rate Oxygen saturation Oxygen saturation in Arterial blood by Pulse oximetry Inhaled oxygen flow rate Systolic blood pressure Diastolic blood pressure Provider Name and Address Organization Details Last Updated DateTime 100 /min 175.26 cm 98.8 [degF] 947489. 368 g 21 /min 94 % 94 % 4 L/min 124 mm[Hg] 70 mm[Hg] Not Available [facility] production 18:36:56 Social History None recorded. Functional Status None recorded. Mental Status None recorded. Family History Nothing Reported. Medical History No medical history recorded. Gynecological HistoryNo gynecological history recorded. Obstetrics History GPAL:G 0 P 0 0 0 0 Past Encounters Encounter ID Performer Location Encounter Start Date Encounter Closed Date Diagnosis/Indication Diagnosis SNOMED-CT Code Diagnosis ICD10 Code Diagnosis Note [id number] Haris Booth MD Main - [address] [phone] 09/04/2023 13:14:04 09/04/2023 21:49:51 Dyspnea 865181747 R06.00 COVID/Flu negative. Given poor breath sounds, increased RR, increased pulse and needing 4L of O2 for breathing (slighlty above baseline per patient), will send to ED. Patient agrees. [id number] Rick Mcmillan MD Main - [facility] [address] [place] [phone] 12/12/2023 18:36:44 12/13/2023 12:03:31 Bilateral lower limb edema 707568424 R60.0 Patient reports increase in lower extremity edema despite taking her torsemide as prescribed . Reports that she just completed treatment with antibiotic s for infection of LE. Per financial institution manager, legs symmetrica lly swollen but also reports non-pittin g edema. Will trial additional dose of diuretic tonight and trial of elevation. Advised patient to contact PCP and care team in the AM (or after the weekend if otherwise unavailabl e) for follow-up. Health Concerns Section Related Observation LastModified by Organization Detai ls LastModified Time None Recorded Concern Status LastModified by Organization Details LastModified Time None Recorded Advance Directives Directive None Recorded Payers Encounter Date Sequence Insurance Name Policy Number Policy Guajardo Covered Member ID Gujaardo Member ID Guarantor Name 09/04/2023 1 [facility] - DOS ON OR AFTER 2022 - DUAL ELIGIBLE - [employer] OPTIONS AND ONE CARE (MEDICARE REPLACEMENT/ADV ANTAGE - HMO) Celi Munoz [id number] Celi Munoz 12/12/2023 1 [facility] - DOS ON OR AFTER 2022 - DUAL ELIGIBLE - [employer] OPTIONS AND ONE CARE (MEDICARE REPLACEMENT/ADV ANTAGE - HMO) Celi Munoz [id number] Ceil Munoz Notes Date Note Type Note Provider Name and Address Organization Details Recorded Time 09/04/2023 text/html HPI: Weakness, fatigue, coughing, fever, does not want to spend the day at the ER as well as congestion. very weak/lethargy/diff iculty coordinating thoughts/fever/cou ghing/SOB Lives alone- PMH: DM, COPD/asthma/HF/chr onic resp failure/hypoxia/me eric impairment Allergies: Risperdal, Ultram, Xanax no cell phone listed. Logan JOY .................. .................. .................. .................. .................. .................. .................. ............... [facility] Nurse Triage Notes (Ayana Westfall): Comments: Spoke with [facility] Nurse and all symptoms reported by her 67 year old member who c/o feeling very weak/lethargy/diff iculty coordinating thoughts/fever/cou ghing/SOB Lives alone- PMH: DM, COPD/asthma/HF/chr onic resp failure/hypoxia/me eric impairment Allergies: Risperdal, Ultram, Xanax no cell phone listed. Logan JOY .................. .................. .................. .................. .................. .................. .................. ............... Medical Billing Coder Note From Fernando Seaman: Pt co cough with production brown in color with fever earlier in the day, took Tylenol. Did updraft and used inhaler. Denies cp dizziness nausea or vomiting. Baseline vitals assessed. Lungs sounds rhonchi throughout. Pt overall did not look well. Pt was having shortness of breath while speaking. Pt seemed to have some confusion. Covid and flu swab negative. [facility] contacted and advised pt to go to ER. 911 called pt transported to [facility] by [facility] and national als. .................. .................. .................. .................. .................. .................. .................. ............... Disposition: Fulfilled Haris Booth MD [address] [place] [address],[address], [place], [phone], [employer] 09/04/2023 17:34:04 12/12/2023 text/html [facility] Nurse Triage Notes (Prachi Barakat): Chief Complaints: Pain, Edema PMH: COPD/Asthma, CHF Pain Assessment: Level 7 out of 10 Comments: RN verified name//address. Patient requesting visit for ongoing pain, edema and redness to BLEs. Was placed on antibiotic for possible cellulitis of LEs in the past. Denies drainage. Thinks she takes a diuretic for CHF. Respiratory status is baseline. Denies chest pain or fevers. .................. .................. .................. .................. .................. .................. .................. ............... Medical Billing Coder Note From Claritza Rueda: Pt complaint of lower extremity edema, new acute 7/10 level of pain. Pt state she feels her chf has exacerbated.Pt denies NVD, sob, cp as well as blurred vision and pain throughout rest of body. Pt states she has taken her ? w ater pill? as prescribed with no relief of symptoms.Non neural focal exam performed. Vitals WNL for the pt. Pt is on 4 lpm of oxygen at baseline, auscultation shows slight wheezing upon exhaling, benign abdominal exam, positive csm in all extremities. Positive lower extremity edema. No wheeping, tender to touch, 0 pitting edema.[facility] consultedPt given 40 mg of po furosemide. Pt told to contact pcp for a follow up on the next available day. Pt instructed on red flag s&s. Pt educated to call emergency services if any of these present themself. .................. .................. .................. .................. .................. .................. .................. ............... Disposition: Gavino Mcmillan MD [address] [facility],[address], [place], [phone], [employer] 12/12/2023 19:26:53 OBGyn Episode No OBEpisode recorded.
[2024-09-08 16:11] LABS: MANUAL DIFF FLAG NO
[2024-09-08 16:21] LABS: Basophils Percent Auto 0.3 % (0-2); Eosinophils Absolute Auto 0.5 X10*3/uL (0.0-0.4); Eosinophils Percent Auto 6.7 % (0-4); Hematocrit 31.8 % (37.0-47.0); Hemoglobin 8.9 g/dl (12.0-16.0); Imm Gran Abs Auto 0.03 X10*3/uL (0.00-0.03); Imm Gran Pct Auto 0.4 % (0.0-0.4); Lymphocytes Percent Auto 25.6 % (20-40); Mean Corpuscular Volume 85.7 fL (80.0-98.0); Mean Platelet Volume 9.3 fL (9.4-12.3); Monocytes Absolute Auto 0.9 X10*3/uL (0.1-1.2); Monocytes Percent Auto 11.4 % (2-11); Neutrophils Absolute Auto 4.3 x10*3/uL (2.0-8.3); Neutrophils Percent Auto 55.6 % (45-73); Platelet Count 335 X10*3/uL (160-400); Red Blood Count 3.71 X10*6/uL (4.20-5.50); Red Cell Distribution Width 17.1 % (11.0-16.0); White Blood Count 7.8 X10*3/uL (4.8-10.8)
[2024-09-08 17:03] LABS: TSH reflex Free T4 0.83 uIU/mL (0.32-4.0)
== END 2024-09-08 14:41 | disposition home or self-care (01) ==
LOC: HO.HMGCLDS 14:40
PROVIDERS: PCP Internal Medicine; Visit Provider Internal Medicine
DX: R79.89 Other specified abnormal findings of blood chemistry (principal); G89.4 Chronic pain syndrome; F33.41 Major depressive disorder, recurrent, in partial remission; Z99.81 Dependence on supplemental oxygen; J44.9 Chronic obstructive pulmonary disease, unspecified; E78.9 Disorder of lipoprotein metabolism, unspecified; K21.9 Gastro-esophageal reflux disease without esophagitis; I10 Essential (primary) hypertension; E11.42 Type 2 diabetes mellitus with diabetic polyneuropathy
CPT/HCPCS: 36415; 84443; 85025

== ENCOUNTER 2024-10-07 14:00 | Outpatient (AMB) | payer MEDICARE, SELFPAY ==
--- NOTE | 2024-10-07 14:16 | AM.OFFWIN_ITS ---
Intake Vital Signs 10/07/24 14:21 BMI Reason not done Patient refused/unable BP 130/82 Blood Pressure Location Lt brachial Position Sitting Pulse 89 Pulse Source Pulse Oximeter Pulse Oximetry (%) 94 Oxygen Delivery Method Nasal Cannula Intake Visit Reasons: EP-neck, lt knee, neck pain Intake Note: Patient here for left leg pain that has been present for a couple of months. Patient Tobacco Use Status: Former Tobacco user Allergies alprazolam [From XANAX] Allergy (Unknown, Verified 09/03/24 14:11) drowsiness risperidone [From RISPERDAL] Allergy (Unknown, Verified 09/03/24 14:11) drowsiness tramadol [From ULTRAM] Allergy (Unknown, Verified 09/03/24 14:11) n/v Do you need a note to return to daycare/school/sports/work: No HPI HPI Comments History of Present Illness Details 68 y/o female patient who presents to [facility] walk [facility] clinic with c/o B/L lower extremities swelling, painful and itching x 2 months. She was seen at [facility] [place]- ED 10/01 for similar concerns and was prescribed a Steroid cream for the Venous Stasis Dermatitis and compression stockings for Peripheral Edema. She has not picked up the stockings yet from the supply medical store. She has been using the Steroid cream with some relief - but ran out of medicine. [facility] Medical History (Updated 10/07/24 @ 14:49 by Trish Moffett NP) Peripheral edema PMB (postmenopausal bleeding) CHF (congestive heart failure) Rheumatoid arthritis Fibromyalgia Cellulitis Arthritis History of hepatitis C Asthma Type 2 diabetes mellitus with polyneuropathy Hyperlipidemia LDL goal <100 Morbid obesity due to excess calories BMI 40.0-44.9, adult Swelling of lower extremity Hypertension, essential History of opioid abuse Chronic GERD Lipid disorder COPD, severe Oxygen dependent Depression, major, 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 Mother No problems noted. Brother Diabetes Son No problems noted. Sister No problems noted. Sister No problems noted. Sister No problems noted. Daughter No problems noted. Daughter No problems noted. Social History Household Members: Spouse Housing: Apartment Alcohol intake: never Patient Tobacco Use Status: Former Tobacco user e-Cigarette/Vaping Use: Never Used Second Hand Smoke Exposure: Yes service: No Current occupational status: disabled Cognitive needs: Yes (wheelchair) Hearing needs: No Vision needs: No Female Reproductive History Menstrual Age of Menarche: 13 Review of Systems Const All systems reviewed & are unremarkable except as noted in HPI and below Physical Exam Vital Signs: Last Vital Signs Pulse 89 10/07/24 14:21 BP 130/82 10/07/24 14:21 Pulse Ox 94 10/07/24 14:21 Oxygen Delivery Method Nasal Cannula 10/07/24 14:21 Const General: cooperative and no acute distress Nutritional Appearance: obese Orientation/consciousness: patient oriented x3 Limitations: wheelchair Neuro General: patient oriented x3 Extrem Right lower extremity: lower leg Details: erythema Location: of the distal lower leg, tenderness Location: of the proximal tibia, of the proximal fibula, of the midshaft tibia and of the midshaft fibula and non-pitting edema; no ecchymosis and no crepitus Left lower extremity: lower leg Details: erythema Location: of the distal lower leg, tenderness Location: of the proximal tibia, of the proximal fibula, of the midshaft tibia and of the midshaft fibula and non-pitting edema Assessment & Plan Assessment & Plan (1) Venous stasis dermatitis: Code(s): I87.2 - Venous insufficiency (chronic) (peripheral) Plan: Ordered Steroid cream BID F/U with PCP. (2) Peripheral edema: Code(s): R60.0 - Localized edema Plan: Pt to machine operator picker Compression stockings and start using them. Medications: New triamcinolone acetonide 0.025% 1 appl topical BID 80 grams 0RF I87.2 - Venous insufficiency (chronic) (peripheral) Discontinued clotrimazole-betamethasone 1-0.05 % Discontinued Reason: Patient Completed Course 1 appl topical ONCE 30 days 45 grams 2RF Coding Level of Care Code Est Pt Level 4 (66466) Diagnoses Venous stasis dermatitis I87.2 Peripheral edema R60.0 Time Spent (min) 20
[2024-10-07 14:21] VITALS: BP 130/82; PULSE 89; O2SAT 94
--- OUTSIDE RECORDS SUMMARY | 2024-10-07 17:48 | XMS_ITS | Data Portability ---
Author Organization [facility] [employer] [place], [place] - [facility] Address [address] [place] [phone] Care Team Providers Care Wet Milling Wheel Operator Name Role Phone [facility] Primary Care Provider Assessment No assessment recorded. Plan of Treatment Reminders Order Date Submit Date Provider Last Modified By Organization Details Last Modified Time Details Appointments None recorded. Lab rapid SARS CoV 2 Ag, QL IA, respiratory specimen 2023 [facility], [address] [place] [address], [id number], 4 20:00:50 rapid flu (A+B) 2023 [facility], [address] [place] [address], [id number], 4 20:01:14 Referral None recorded. Procedures None [...] Available No t Available Comfort EZ Pen M[place] 32 gauge x 5/32 active Not Available Not Available Not Available Comfort EZ Pen [place] 33 gauge x 5/32 active Not Available [...] 4 95 % 95 % 4 L/min 605030. 08 g 98.7 [degF] 110 /min 20 [...] DateTime 100 /min 175.26 cm 98.8 [degF] 735150. 368 g 21 /min 94 % 94 [...] SNOMED-CT Code Diagnosis ICD10 Code Diagnosis Note [id number] Haris Booth MD Main - [address] [phone] 09/04/2023 13:14:04 09/04/2023 21:49:51 Dyspnea 573566340 R06.00 COVID/Flu negative. Given poor breath sounds, increased RR, increased pulse and needing 4L of O2 for breathing (slighlty above baseline per patient), will send to ED. Patient agrees. [id number] Rick Mcmillan MD Main - [facility] [address] [place] [phone] 12/12/2023 18:36:44 12/13/2023 12:03:31 Bilateral lower limb edema 872266444 R60.0 Patient reports increase in lower extremity edema despite taking her torsemide as prescribed . Reports that she just completed treatment with antibiotic s for infection of LE. Per slice plug cutter operator helper, legs symmetrica lly swollen but also reports [...] Member ID Guajardo Member ID Guarantor Name 09/04/2023 1 [facility] - DOS ON OR AFTER 2022 - DUAL ELIGIBLE - [employer] OPTIONS AND ONE CARE (MEDICARE REPLACEMENT/ADV ANTAGE - HMO) Celi Munoz [id number] Celi Munoz 12/12/2023 1 [facility] - DOS ON OR AFTER 2022 - DUAL ELIGIBLE - [employer] OPTIONS AND ONE CARE (MEDICARE REPLACEMENT/ADV ANTAGE - HMO) Celi Munoz [id number] Celi Munoz Notes Date Note Type Note Provider [...] Triage Notes (Ayana Westfall): Comments: Spoke with [facility] Nurse and all symptoms reported by her 67 year old member who c/o feeling very weak/lethargy/diff iculty coordinating thoughts/fever/cou ghing/SOB Lives alone- PMH: DM, COPD/asthma/HF/chr onic resp failure/hypoxia/me eric impairment Allergies: Risperdal, Ultram, Xanax no cell phone listed. Logan JOY .................. .................. .................. .................. .................. .................. .................. ............... Curatorial Specialist Note From Fernando Seaman: Pt co cough [...] to ER. 911 called pt transported to [facility] by CFD and national als. .................. .................. .................. .................. .................. .................. .................. ............... Disposition: Fulfilled Haris Booth MD [address] [place] [address],[address], [place], [phone], [employer] 09/04/2023 17:34:04 12/12/2023 text/html [facility] Nurse Triage [...] .................. .................. .................. .................. .................. .................. ............... Curatorial Specialist Note From Claritza Rueda: Pt complaint of [...] .................. ............... Disposition: Gavino Mcmillan MD [address] [facility],[address], [place], [phone], [employer] 12/12/2023 19:26:53 OBGyn Episode No OBEpisode recorded.
--- OUTSIDE RECORDS SUMMARY | 2024-10-07 17:48 | XMS_ITS ---
Author Organization [facility] Care Team Providers Care Automobile Service Station Manager Name Role Phone Amy Mckeon Unavailable Unavailable Angelia Rubio Unavailable Mildred Rivera Unavailable Unavailable Savanah Albarado Unavailable Unavailable Delilah Alston Unavailable Unavailable Care Team Name Role Address Phone Organization Dates Mildred Rosado PCP [address] [facility] [address], [place], [address], [facility] (Office): [facility] 06/24/2018 - 07/06/2018 Amy Mckeon Attending Physician [address] [place] [address], [facility], [facility] (Office): [facility] 06/24/2018 - 07/06/2018 Angelia Rubio Attending Physician [address] [place] [address], [phone], [facility] (Office): [facility] 06/24/2018 - 07/06/2018 Savanah Albarado Attending Physician [address] [place] [address], [phone], [facility] (Office): [facility] 06/24/2018 - 07/06/2018 Delilah Alston Attending Physician [address] [place] [address], [phone], [facility] (Office): [facility] 06/24/2018 - 07/06/2018 Goals Section Description Status Target Date Intake of meals greater than or equal to 98% or as tolerated. Active 09/22/2018 Maintain weight 251lbs +/- < 5%, gradual weight loss is acceptable/beneficial. Active 09/22/2018 No s/s hyper/hypoglycemia, aspiration or dehydra tion. Active 09/22/2018 Nutrition related labs at baseline for medical c onditions. Active 09/22/2018 Skin to remain intact. Active 9 Will tolerate diet, texture and fluid consistency without signs and symptoms of aspiration Active 09/22/2018 Mental Status Section Date Assessment Total Score Description 06/29/2018 CAM 0 No delirium ind icated Problems Problem # Description Date of onset Resolved Date Code CodeSystem Concern Status 1 ACUTE RESPIRATORY FAILURE WITH HYPERCAPNIA 06/23/[address] active 2 ACUTE RESPIRATORY FAILURE WITH HYPOXIA 06/23/[address] active 3 BIPOLAR DISORDER, UNSPECIFIED 06/23/[address] active 4 CARDIAC ARREST, CAUSE UNSPECIFIED 06/23/[address] active 5 CHRONIC HEPATITIS, UNSPECIFIED 06/23/[address] active 6 CHRONIC OBSTRUCTIVE PULMONARY DISEASE WITH (ACUTE) EXACERBATION 06/23/[address] active 7 DIFFICULTY IN WALKING, NOT ELSEWHERE CLASSIFIED 06/23/[address] active 8 ESSENTIAL (PRIMARY) HYPERTENSION 06/23/[address] active 9 MULTIPLE FRACTURES OF RIBS, LEFT SIDE, SEQUELA 06/23/[address] active 10 MUSCLE WEAKNESS (GENERALIZED) 06/23/[address] active 11 PERSONAL HISTORY OF SUDDEN CARDIAC ARREST 06/23/[address] active 12 PNEUMONIA, UNSPECIFIED ORGANISM 06/23/[address] active Reason for Referral No Reasons for Referral Entered Social History Social History Observation Description Start Date End Date Code Code System Current Smoking Status Tobacco smoking consumption unknown 604716754 SNOMED CT Sex Assigned At Female 1955 25109-2 [facility] Vital Signs Code Code System Vitals Name Values and Units Timing Information 29980-4 [facility] Pain Level Value=4.0 06/29/2018 79599-4 [facility] O2 % BldC Oximetry Value=85.0 Units= % 06/29/2018 9279-1 [facility] Respiratory Rate Value=18.0 Units=/m in 06/29/2018 8462-4 [facility] Blood Pressure-Diastolic Value=66 Un its=mmHg 06/29/2018 8480-6 [facility] Blood Pressure-Systolic Jlcka=626 Un its=mmHg 06/29/2018 8310-5 [facility] Body Temperature Value=97.0 Units=?? F 06/29/2018 8867-4 [facility] Heart rate Value=88.0 Units=/min 09/2017 36555-9 [facility] Weight Onblm=887.4 Units=Lbs 09/2017 8302-2 [facility] Height Value=66.0 Units=Inches 06/24/2018
--- OUTSIDE RECORDS SUMMARY | 2024-10-07 17:48 | XMS_ITS | Clinical Summary ---
Author Organization [facility] Address [address] [facility] [address] [place] [address] Phone Care Team Providers Care Blood Splatter Analyst Name Role Phone Unavailable Primary Care Provider [...] 100 UNIT/ML injection 1 Active Ultracare Pen [place]um 32G X 4 MM [facility] DIRECTED ONCE DAILY 1 Active ipratropium-alb uterol [...] of chronic obstructive pulmon khalida disease 08/22/2021 Cbuov-mw-liucpsn respiratory failure 08/22/2021 Anxiety 08/22/2021 Asthma 08/22/2021 [...] patient's age to complete this topic Insurance [facility] ([id number]) [facility] ([id number])
== END 2024-10-07 14:55 | disposition home or self-care (01) ==
PROVIDERS: PCP Internal Medicine; Visit Provider Nurse Practitioner Family
DX: I87.2 Venous insufficiency (chronic) (peripheral) (principal); R60.0 Localized edema

== ENCOUNTER → 2024-10-07 14:00 | Outpatient (BNVA) | payer MEDICARE, SELFPAY | PROVIDERS: PCP Internal Medicine; Visit Provider Nurse Practitioner Family | DX: I87.2 Venous insufficiency (chronic) (peripheral) (principal); R60.0 Localized edema | CPT/HCPCS: 99212 ==

== ENCOUNTER 2024-12-24 08:23 | Outpatient (AMB) | payer MEDICARE, SELFPAY ==
--- OUTSIDE RECORDS SUMMARY | 2024-12-24 08:25 | XMS_ITS | Data Portability ---
Author Organization [place] [facility] Address [address] [place] [address] Care Team Providers Care House Steward/Stewardess Name Role Phone FABIO RAMAN Primary Care Provider Assessment Encounter Date Assessment Date Assessment LastModified by Organization Details LastModified Time 11/20/2020 11/20/2020 PATIENT WAS NOT SEEN- DO NOT BILL [email or web address] Not available 11/20/2020 20:10:36 11/21/2020 11/21/2020 Overview/History : 65-year-old [facility] a past medical [facility] significant for [...] EMS called, report given, pt transported to [facility] for further workup. All questions answered [...] after care [facility]. Time On Scene with Patient: 00:34:41 [email or web address] Not available 11/21/2020 13:10:17 Plan of Treatment [...] By Organization Details Last Modified Time 11/21/2020 [id number] Pt->ED Not available 11/21 12:51:59 Reason for Referral None Reported. Procedures Surgical History Date Name Laterality Status Provider Name and Address Organization Details Recorded Time 11/22/19 21 Medication Review completed Raquel Davidson NP [address], [place], [address], [place] [facility] 11/21/2020 12:51:46 Imaging Results None recorded. Procedure Notes None recorded. Medical Equipment None Reported. Allergies Allergen ID Allergen Name Allergen Category Reaction Reaction Severity Criticality Documentation Date Start Date Code Code System Note Provider Name and Address Organization Details Recorded Time 757019 Risperdal medicatio n Not available Not available Not available 11/21/2020 32411 8 RxNorm Raquel Davidson NP [address] [place], [address], [place] [facility] 11:06:41 966086 Xanax medicatio n Not available Not available Not available 11/21/202064643 3 RxNorm Raquel Davidson, HOTEL GUEST SERVICE AGENT [address], [facility] [place], [address], [place] [facility] 11:06:46 368271 Ultram medicatio n Not available Not available Not available 11/21/2020 35847 6 RxNorm Raquel Davidson, HOTEL GUEST SERVICE AGENT [address], [place], [address], [place] [facility] 11:18:21 Medications Name Sig Start Date Stop Date Status Note LastModified by Organization Details LastModified Time amoxicillin 500 mg capsule TAKE DIRECTED BY OFFICE [facility] HAS CORRECT DIRECTION S* 11/21 completed Not [...] Never Smoker Raquel Davidson NP [address] [place], [address], [place] [facility] 11/21/2020 11:07:32 What Is Your Code Status? Full Code [email or web address] Information not available 11/21/2020 Within The Past 12 Months, Has It Happened That The Food You Bought Just Didn't Last And You Didn't Have Money To Get More. No [email or web address] Information not available 11/21/2020 Within The Past 12 Months, Have You Worried That Your Food Would Run Out Before You Got Money To Buy More. No Information not available 11/21/2020 Fall Risk: Do You Feel Unsteady When Standing Or Walking? Yes Information not available 11/21/2020 We Know That How And When People Interact With Friends And Family Can Be Very Different From Person To Person. How Often Do You Have The Opportunity To See Or Talk To People That You Care About And Feel Close To? (Ex: Talking To Friends On The Phone Or Visiting Friends Or Family Or Going To [employer] Or Club Meetings) 5 Or More Times Per Week [email or web address] Information not available 11/21/2020 We Know From Many Of Our Patients That Covering All Of Their Costs Can Be Difficult At Times. This Can Cause Stress And Impact Health. In The Past Year, Have You Been Unable To Get Any Of The Following When It Was Really Needed? No [email or web address] Information not available 11/21/2020 What Is Your Housing Situation Today? I Have Housing [email or web address] Information not available 11/21/2020 Would You Like Help Connecting To Resources? None Information not available 11/21/2020 Sex: Unknown Functional Status None recorded. Mental Status None recorded. Family History Relationship Description Onset Age of this Age Resolved Age Notes LastModified by Organization Details LastModified Time Brother Diabetes mellitus Not available 2020 12:54:16 Medical History Condition Response Coronary Artery Disease Y Depression N COPD Y Diabetes Y Cancer N Stroke N Asthma N High Cholesterol Y Pulmonary Embolism N Hypertension Y Kidney Disease N Gynecological HistoryNo gynecological history recorded. Obstetrics History GPAL:G 0 P 0 0 0 0 Past Encounters Encounter ID Performer Location Encounter Start Date Encounter Closed Date Diagnosis/Indication Diagnosis SNOMED-CT Code Diagnosis ICD10 Code Diagnosis Note [id number] NATHALIA FERNANDEZ NP [facility] [address] [place] [address] 11/20/2020 16:59:20 11/21/2020 10:51:30 [id number] Raquel Davidson NP [facility] [address] [place] [address] 11/21/2020 10:51:54 11/22/2020 15:24:04 Hypoxia 000778918 R09.02 Tachycardia 0200829 R00. 0 Chronic ob structive pulmonary disease 03980227 J44.9 Diabetes mellitus 838905 09 E11.9 Pain in right arm 736448 004 M79.601 Pain in left knee 806445 2766 01392 M25.562 Health Concerns Section Related Observation LastModified by Organization Detai ls LastModified Time None Recorded Concern Status LastModified by Organization Details LastModified Time None Recorded Advance Directives Directive None Recorded Payers Insurance Date Sequence Insurance Name Policy Number Policy Guajardo Covered Member ID Guajardo Member ID Guarantor Name 11/20/2020 1 [facility] - DOS PRIOR TO 2022 - DUAL ELIGIBLE (MEDICARE REPLACEMENT/ADV ANTAGE - HMO) Celi Munoz [id number] Celi Baltazar Alexander 11/20/2020 2 [place] [employer] Celi Appleedo [id number] Celi Baltazar Alexander 11/20/2020 2 [place]: [facility] Celi Appleedo [id number] Celi Baltazar Alexander 11/20/2020 1 *SELF PAY* Celi Pottso [id number] Celi Baltazar Alexander 11/20/2020 1 [facility] - DOS PRIOR TO 2022 - DUAL ELIGIBLE (MEDICARE REPLACEMENT/ADV ANTAGE - HMO) Celi Appleedo [id number] Celi Baltazar Alexander 11/22/2020 2 [place]: [facility] Celi Appleedo [id number] Celi Pottso Notes Date Note Type Note Provider Name and Address Organization Details Recorded Time 11/20/2020 text/html PATIENT WAS NOT SEEN- DO NOT BILL NATHALIA FERNANDEZ NP [address], [place], [address], [place] [facility] 11/20/2020 20:10:45 11/21/2020 text/html [...] spouse. Raquel Davidson NP [address], [place], [address], [place] [facility] 11/21/2020 13:10:56 OBGyn Episode No OBEpisode recorded.
--- NOTE | 2024-12-24 11:03 | MHC.PC.OV ---
Intake Visit Reasons: 3m F/U Allergies alprazolam [From XANAX] Allergy (Unknown, Verified 09/03/24 14:11) drowsiness risperidone [From RISPERDAL] Allergy (Unknown, Verified 09/03/24 14:11) drowsiness tramadol [From ULTRAM] Allergy (Unknown, Verified 09/03/24 14:11) n/v Medication List - Last Reconciled 12/24/24 by Veronique Rivera MD albuterol sulfate 90 mcg/actuation 2 puffs inhalation QID PRN alcohol swabs (Easy Touch Alcohol Prep Pads) topical; atorvastatin 40 mg PO DAILY 90 days blood sugar diagnostic (FreeStyle Lite Strips) 2x/day As directed blood-glucose meter (FreeStyle Lite Meter kit) Check blood sugar twice daily as directed buprenorphine-naloxone 8-2 mg 2 film sublingually BID; +.5 (total 2.5 film) at night buspirone 15 mg PO BID dapagliflozin propanediol 10 mg PO DAILY diaper,brief,adult,disposable (Depend Fit-Flex Underwear) Patient uses X-Large pull-ups 3 times per day as directed disposable gloves As directed-size large [disposable wipes As directed] duloxetine 60 mg PO DAILY duloxetine 30 mg PO QAM dupilumab (Dupixent) 200 mg subcut Q2W ferrous sulfate 324 mg PO BID 90 days qznlqoaytsv-vnxruihem-bcjwbgea 200-62.5-25 mcg (Trelegy Ellipta) 1 ea inhalation DAILY gabapentin 600 mg PO TID 30 days glipizide 5 mg PO DAILY hydrochlorothiazide 25 mg PO DAILY incontinence pad, liner, disp As directed insulin glargine (Lantus Solostar U-100 Insulin) 10 units (0.1 mL) subcut QPM ipratropium-albuterol 0.5 mg-3 mg(2.5 mg base)/3 mL 3 mL inhalation TID lancets test blood sugar 3 times per day lanolin 1 appl topical DAILY lorazepam 1 mg PO TID PRN metformin 1,000 mg (2 x 500 mg) PO DAILY Oxygen Home Use 3LPM continuous via NC [oxygen-portable concentrator As directed 3 liter flow, continuous use. ] pantoprazole 40 mg PO DAILY 90 days pen needle, diabetic (BD Ultra-Fine Tamia Pen Needle) As directed once daily semaglutide (Ozempic) 0.25 mg (0.368 mL) subcut QWEEK sennosides-docusate sodium 8.6-50 mg (Senokot-S) 1 tab-cap PO BEDTIME 90 days sennosides-docusate sodium 8.6-50 mg (Senokot-S) 2 tab-caps (2 x 8.6-50 mg) PO ONCE 90 days torsemide 20 mg PO DAILY triamcinolone acetonide 0.025% 1 appl topical BID walker As directed [wheelchair As directed] [wheelchair repair Left side of chair is broken] [Wheelchair with bilateral leg rest As directed NS] [X-Large pull up/adult diaper Change diaper 3 times a day or as needed for incontinence] Tobacco use date assessed: 09/03/24 Dental Screening Dental Screen Date: 09/03/24 HPI 3m F/U HPI Details History - The patient is a 69-year-old female presenting with left knee pain and inquiring about medication for weight management. - The left knee pain has been described as very sore, with significant discomfort. The patient has not previously seen an orthopedic doctor specifically for this issue. but she has seen Ortho for her other joints , she suffers from OA bilateral knees . - The patient has a history of being seen at [facility], in July of the previous year for shoulder pain - Request for a prescription of Wegovy (semaglutide) for weight loss efforts associated with Type 2 Diabetes Mellitus, while noting current management of depression with medication. patient still want to try it - Discussed current weight , she states she weigh about 260 + lbs Problem List - Left Knee Pain - Depression - Type 2 Diabetes Mellitus Patient Instructions - Expect a call from an orthopedic doctor for further evaluation of knee pain. - The prescription for Wegovy will be sent to the pharmacy; availability is subject to insurance coverage. - Monitor for any adverse effects due to medication changes. - The thyroid test result has been normal, verified in August. - Follow up with questions or further needs regarding medication or management. Review of Systems - General: No fever no chills - Neurological: No headaches no dizziness - Ear nose throat: No sore throat no hearing difficulty no ear pain - Cardiovascular: No syncope, no chest pain, no palpitations - Gastrointestinal: No nausea vomiting or diarrhea - Endocrine: No polyuria polydipsia no heat intolerance - Genitourinary: No dysuria , no blood in urine PFSH Medical History Peripheral edema PMB (postmenopausal bleeding) CHF (congestive heart failure) Rheumatoid arthritis Fibromyalgia Cellulitis Arthritis History of hepatitis C Asthma Type 2 diabetes mellitus with polyneuropathy Hyperlipidemia LDL goal <100 Morbid obesity due to excess calories BMI 40.0-44.9, adult Swelling of lower extremity Hypertension, essential History of opioid abuse Chronic GERD Lipid disorder COPD, severe Oxygen dependent Depression, major, 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 Mother No problems noted. Brother Diabetes Son No problems noted. Sister No problems noted. Sister No problems noted. Sister No problems noted. Daughter No problems noted. Daughter No problems noted. Social History Household Members: Spouse Housing: Apartment Alcohol intake: never Patient Tobacco Use Status: Former Tobacco user e-Cigarette/Vaping Use: Never Used Second Hand Smoke Exposure: Yes service: No Current occupational status: disabled Cognitive needs: Yes (wheelchair) Hearing needs: No Vision needs: No Female Reproductive History Menstrual Age of Menarche: 13 Questionnaire Thrive Questionnaire Date Thrive assessed: 09/03/24 WILIAM-7 AMB Questionnaire WILIAM-7 Date WILIAM - 7 assessed: 09/03/24 Source: Developed by Drs. Luis Lema, Jagruti Lovett, Rolando Romero and colleagues, with an educational tish from [employer] (formerly [employer]). Physical exam (Primary Care) Tobacco/Smoking Status: Tobacco use Status Tobacco use date assessed 09/03/24 12/24/24 11:04 Patient Tobacco Use Status Former Tobacco user 12/24/24 11:04 e-Cigarette/Vaping Use Never Used 12/24/24 11:04 Thrive Assessment: Date of Thrive Assessment Date Thrive assessed 09/03/24 12/24/24 11:04 Telehealth Telehealth Telehealth Platform: [facility] Location of provider rendering services: practice address Location of patient: address on file Patient Identification confirmed using: Name, : Yes Telehealth method: video (attempted) Patient verbally consented to treatment: Yes Patient verbally consented to billing insurance company: Yes Patient informed of any privacy concerns related to visit: Yes Minutes spent on Phone/Video with Pt.: 13 Coding Level of Care Code Tele Est Pt Level 3 (48484) Diagnoses Osteoarthritis of left knee, unspecified osteoarthritis type M17.12 Osteoarthritis type: unspecified Type 2 diabetes mellitus with other specified complication, with long-term current use of insulin E11.69; Z79.4 Diabetes mellitus type: type 2 Diabetes mellitus terminal computer operator insulin use: with prison use Diabetes mellitus complication status: with other specified complication Morbid obesity due to excess calories E66.01 Assessment & Plan Assessment & Plan (1) Osteoarthritis of left knee: Code(s): M17.12 - Unilateral primary osteoarthritis, left knee Category: Medical Qualifiers: Osteoarthritis type: unspecified Qualified Code(s): M17.12 - Unilateral primary osteoarthritis, left knee (2) Diabetes: Code(s): E11.9 - Type 2 diabetes mellitus without complications Category: Medical Qualifiers: Diabetes mellitus type: type 2 Diabetes mellitus terminal computer operator insulin use: with terminal computer operator use Diabetes mellitus complication status: with other specified complication Qualified Code(s): E11.69 - Type 2 diabetes mellitus with other specified complication; Z79.4 - detention (current) use of insulin (3) Morbid obesity due to excess calories: Code(s): E66.01 - Morbid (severe) obesity due to excess calories Category: Medical Plan History - The patient is a 69-year-old female presenting with left knee pain and inquiring about medication for weight management. - The left knee pain has been described as very sore, with significant discomfort. The patient has not previously seen an orthopedic doctor specifically for this issue. but she has seen Ortho for her other joints , she suffers from OA bilateral knees . - The patient has a history of being seen at [facility], in July of the previous year for shoulder pain - Request for a prescription of Wegovy (semaglutide) for weight loss efforts associated with Type 2 Diabetes Mellitus, while noting current management of depression with medication. patient still want to try it - Discussed current weight , she states she weigh about 260 + lbs Problem List - Left Knee Pain - Depression - Type 2 Diabetes Mellitus Patient Instructions - Expect a call from an orthopedic doctor for further evaluation of knee pain. - The prescription for Wegovy will be sent to the pharmacy; availability is subject to insurance coverage. - Monitor for any adverse effects due to medication changes. - The thyroid test result has been normal, verified in August. - Follow up with questions or further needs regarding medication or management. Orders: Referrals Orthopedics Referral M17.12 - Unilateral primary osteoarthritis, left knee Medications: New Wegovy (semaglutide (weight loss)) administer weeks 1 through 4 of therapy 0.25 mg (0.5 mL) subcut QWEEK 2.5 mL 0RF 30 days NS
== END 2024-12-24 11:11 | disposition home or self-care (01) ==
LOC: HO.HMCC 08:23
PROVIDERS: PCP Internal Medicine; Visit Provider Internal Medicine
DX: E11.69 Type 2 diabetes mellitus with other specified complication (principal); Z79.4 Long term (current) use of insulin; E66.01 Morbid (severe) obesity due to excess calories; M17.12 Unilateral primary osteoarthritis, left knee

== ENCOUNTER → 2024-12-24 08:23 | Outpatient (BNVA) | payer MEDICARE, SELFPAY | PROVIDERS: PCP Internal Medicine; Visit Provider Internal Medicine ==

== ENCOUNTER 2025-01-07 14:30 | Outpatient (AMB) | payer MEDICARE, SELFPAY ==
--- NOTE | 2025-01-07 14:36 | A.OFFPC_ITS ---
Vital Signs 01/07/25 14:45 Height 5 ft 8 in BMI Reason not done Patient refused/unable BP 132/62 Blood Pressure Location Rt brachial Position Sitting Pulse 110 H Pulse Source Pulse Oximeter Pulse Oximetry (%) 92 Oxygen Delivery Method Nasal Cannula Intake Visit Reasons: weight loss med management/wheelchair Allergies alprazolam [From XANAX] Allergy (Unknown, Verified 01/07/25 14:39) drowsiness risperidone [From RISPERDAL] Allergy (Unknown, Verified 01/07/25 14:39) drowsiness tramadol [From ULTRAM] Allergy (Unknown, Verified 01/07/25 14:39) n/v Medication List - Last Reconciled 01/07/25 by Veronique Rivera MD albuterol sulfate 90 mcg/actuation 2 puffs inhalation QID PRN alcohol swabs (Easy Touch Alcohol Prep Pads) topical; atorvastatin 40 mg PO DAILY 90 days blood sugar diagnostic (FreeStyle Lite Strips) 2x/day As directed blood-glucose meter (FreeStyle Lite Meter kit) Check blood sugar twice daily as directed buprenorphine-naloxone 8-2 mg 2 film sublingually BID; +.5 (total 2.5 film) at night buspirone 15 mg PO BID dapagliflozin propanediol 10 mg PO DAILY diaper,brief,adult,disposable (Depend Fit-Flex Underwear) Patient uses X-Large pull-ups 3 times per day as directed disposable gloves As directed-size large [disposable wipes As directed] duloxetine 60 mg PO DAILY duloxetine 30 mg PO QAM dupilumab (Dupixent) 200 mg subcut Q2W ferrous sulfate 324 mg PO BID 90 days qdnlsqpbftk-ebxcoqcpj-besuzonj 200-62.5-25 mcg (Trelegy Ellipta) 1 ea inhalation DAILY gabapentin 600 mg PO TID 30 days glipizide 5 mg PO DAILY hydrochlorothiazide 25 mg PO DAILY incontinence pad, liner, disp As directed insulin glargine (Lantus Solostar U-100 Insulin) 10 units (0.1 mL) subcut QPM ipratropium-albuterol 0.5 mg-3 mg(2.5 mg base)/3 mL 3 mL inhalation TID lancets test blood sugar 3 times per day lanolin 1 appl topical DAILY lorazepam 1 mg PO TID PRN metformin 1,000 mg (2 x 500 mg) PO DAILY Oxygen Home Use 3LPM continuous via NC [oxygen-portable concentrator As directed 3 liter flow, continuous use. ] pantoprazole 40 mg PO DAILY 90 days pen needle, diabetic (BD Ultra-Fine Tamia Pen Needle) As directed once daily torsemide 20 mg PO DAILY triamcinolone acetonide 0.025% 1 appl topical BID walker As directed [wheelchair As directed] [wheelchair repair Left side of chair is broken] [Wheelchair with bilateral leg rest As directed NS] [X-Large pull up/adult diaper Change diaper 3 times a day or as needed for incontinence] Tobacco use date assessed: 01/07/25 Fall risk assessment: No Falls in past year Last assessed Fall Risk: 01/07/25 Dental Screening Dental Screen Date: 01/07/25 Did you have a dental visit in the last 12 months?: No Did you have a dental problem in the last 6 months where you did not have access to dental care?: No Was dental information given to patient?: No HPI weight loss med management/wheelchair HPI Details History - The patient is a 69-year-old female pr esenting for a wheelchair evaluation. - The electric wheelchair is needed addi use the patient cannot use a manual wheelchair due to weakness in the arms and inability to self-propel. Patient is dependent on wheelchair for her daily activities, going to bathroom and visits for medical care along with self-care - The patient reports the current electr ic wheelchair is several years old and the batteries are , rendering it non-functional. - The patient lives in an upstairs resid ence and requires a living environment without stairs to effectively use the wheelchair. Letter provided for that - The patient wishes to use the wheelcha ir to be more independent, such as visiting her daughter and going to the store. - The patient is also concerned with franc ght management. - Previous attempts to obtain prescribed weight loss injections (Wegovy) were unsuccessful due to insurance denial. - The patient acknowledges a need to see an obesity specialist as per insurance requirements for approval of the medication. Problem List - Obesity - Weakness in upper and lower extremitie s - Functional mobility limitations due to residence environment - wheelchair dependent - risk for fall - recurrent lower extremity cellulitis - stasis dermatitis bilateral lower extr emity - chronic pain syndrome Patient Instructions - we will initiate paperwork for aristidesi c wheelchair - Follow up with an obesity specialist t o meet insurance requirements for weight loss medication. - letter provided for appropriate reside nce on the ground floor - continue medications Review of Systems - General: No fever no chills - Neurological: No headaches no dizziness - Ear nose throat: No sore throat no hearing difficulty no ear pain - Cardiovascular: No syncope, no chest pain, no palpitations - Gastrointestinal: No nausea vomiting or diarrhea Physical Exam General: No acute distress elderly female sitting in a wheelchair HEENT: No acute findings Neck: Supple Respiratory system: Able to talk in full sentences, no audible wheeze Cardiovascular: S1-S2 regular in rate and rhythm Gastrointestinal: No pain Extremities: Weakness in legs and arms, 4 x 4 both legs and arms chronic pain with palpation all over DEVELOPMENT SYSTEM EFFICIENCY MANAGER: Alert awake oriented x3 motor sensory intact, unable to get up from wheelchair without assistance Skin: Normal turgor PFSH Medical History Peripheral edema PMB (postmenopausal bleeding) CHF (congestive heart failure) Rheumatoid arthritis Fibromyalgia Cellulitis Arthritis History of hepatitis C Asthma Type 2 diabetes mellitus with polyneuropathy Hyperlipidemia LDL goal <100 Morbid obesity due to excess calories BMI 40.0-44.9, adult Swelling of lower extremity Hypertension, essential History of opioid abuse Chronic GERD Lipid disorder COPD, severe Oxygen dependent Depression, major, 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 Mother No problems noted. Brother Diabetes Son No problems noted. Sister No problems noted. Sister No problems noted. Sister No problems noted. Daughter No problems noted. Daughter No problems noted. Social History Household Members: Spouse Housing: Apartment Alcohol intake: never Patient Tobacco Use Status: Former Tobacco user e-Cigarette/Vaping Use: Never Used Second Hand Smoke Exposure: Yes service: No Current occupational status: disabled Cognitive needs: Yes (wheelchair) Hearing needs: No Vision needs: No Female Reproductive History Menstrual Age of Menarche: 13 Questionnaire Thrive Questionnaire Date Thrive assessed: 09/03/24 IWLIAM-7 AMB Questionnaire WILIAM-7 Date WILIAM - 7 assessed: 09/03/24 Source: Developed by Drs. Luis Lema, Jagruti Lovett, Rolando Romero and colleagues, with an educational tish from [employer]. Physical exam (Primary Care) Vital Signs: Last Vital Signs Pulse 110 H 01/07/25 14:45 BP 132/62 01/07/25 14:45 Pulse Ox 92 01/07/25 14:45 Oxygen Delivery Method Nasal Cannula 01/07/25 14:45 Tobacco/Smoking Status: Tobacco use Status Tobacco use date assessed 01/07/25 01/07/25 14:49 Patient Tobacco Use Status Former Tobacco user 01/07/25 14:49 e-Cigarette/Vaping Use Never Used 01/07/25 14:49 Thrive Assessment: Date of Thrive Assessment Date Thrive assessed 09/03/24 01/07/25 14:49 Coding Level of Care Code Est Pt Level 4 (85141) Complex EM visit Add On G2211 Diagnoses Wheelchair dependent Z99.3 Morbid obesity due to excess calories E66.01 Mobility impaired Z74.09 Peripheral edema R60.0 Fibromyalgia M79.7 Osteoarthritis of both shoulders, unspecified osteoarthritis type M19.011; M 19.012 Osteoarthritis type: unspecified Osteoarthritis of left knee, unspecified osteoarthritis type M17.12 Osteoarthritis type: unspecified Osteoarthritis of right knee, unspecified osteoarthritis type M17.11 Osteoarthritis type: unspecified Venous stasis dermatitis I87.2 Bilateral leg pain M79.604; M79.605 Difficulty walking R26.2 Type 2 diabetes mellitus with polyneuropathy E11.42 COPD, severe J44.9 Oxygen dependent Z99.81 Assessment & Plan Assessment & Plan (1) Wheelchair dependent: Code(s): Z99.3 - Dependence on wheelchair Category: Medical (2) Morbid obesity due to excess calories: Code(s): E66.01 - Morbid (severe) obesity due to excess calories Category: Medical (3) Mobility impaired: Code(s): Z74.09 - Other reduced mobility Category: Medical (4) Peripheral edema: Code(s): R60.0 - Localized edema Category: Medical (5) Fibromyalgia: Code(s): M79.7 - Fibromyalgia Category: Medical (6) Osteoarthritis of shoulders, bilateral: Code(s): M19.011 - Primary osteoarthritis, right shoulder; M19.012 - Primary osteoarthritis, left shoulder Category: Medical Qualifiers: Osteoarthritis type: unspecified Qualified Code(s): M19.011 - Primary osteoarthritis, right shoulder; M19.012 - Primary osteoarthritis, left shoulder (7) Osteoarthritis of left knee: Code(s): M17.12 - Unilateral primary osteoarthritis, left knee Category: Medical Qualifiers: Osteoarthritis type: unspecified Qualified Code(s): M17.12 - Unilateral primary osteoarthritis, left knee (8) Osteoarthritis of right knee: Code(s): M17.11 - Unilateral primary osteoarthritis, right knee Category: Medical Qualifiers: Osteoarthritis type: unspecified Qualified Code(s): M17.11 - Unilateral primary osteoarthritis, right knee (9) Venous stasis dermatitis: Code(s): I87.2 - Venous insufficiency (chronic) (peripheral) Category: Medical (10) Bilateral leg pain: Code(s): M79.604 - Pain in right leg; M79.605 - Pain in left leg Category: Medical (11) Difficulty walking: Code(s): R26.2 - Difficulty in walking, not elsewhere classified Category: Medical (12) Type 2 diabetes mellitus with polyneuropathy: Code(s): E11.42 - Type 2 diabetes mellitus with diabetic polyneuropathy Category: Medical (13) COPD, severe: Code(s): J44.9 - Chronic obstructive pulmonary disease, unspecified Category: Medical (14) Oxygen dependent: Code(s): Z99.81 - Dependence on supplemental oxygen Category: Medical Plan History - The patient is a 69-year-old female presenting for a wheelchair evaluation. - The electric wheelchair is needed because the patient cannot use a manual wheelchair due to weakness in the arms and inability to self-propel. Patient is dependent on wheelchair for her daily activities, going to bathroom and visits for medical care along with self-care - The patient reports the current electric wheelchair is several years old and the batteries are , rendering it non-functional. - The patient lives in an upstairs residence and requires a living environment without stairs to effectively use the wheelchair. Letter provided for that - The patient wishes to use the wheelchair to be more independent, such as visiting her daughter and going to the store. - The patient is also concerned with weight management. - Previous attempts to obtain prescribed weight loss injections (Wegovy) were unsuccessful due to insurance denial. - The patient acknowledges a need to see an obesity specialist as per insurance requirements for approval of the medication. Problem List - Obesity - Weakness in upper and lower extremities - Functional mobility limitations due to residence environment - wheelchair dependent - risk for fall - recurrent lower extremity cellulitis - stasis dermatitis bilateral lower extremity - chronic pain syndrome Patient Instructions - we will initiate paperwork for electric wheelchair - Follow up with an obesity specialist to meet insurance requirements for weight loss medication. - letter provided for appropriate residence on the ground floor - continue medications Orders: Referrals Bariatric Surgery Referral E66.01 - Morbid (severe) obesity due to excess calories
[2025-01-07 14:45] VITALS: BP 132/62; PULSE 110; O2SAT 92
== END 2025-01-07 15:08 | disposition home or self-care (01) ==
LOC: HO.HMCC 14:34
PROVIDERS: PCP Internal Medicine; Visit Provider Internal Medicine
DX: R60.0 Localized edema (principal); E66.01 Morbid (severe) obesity due to excess calories; E11.42 Type 2 diabetes mellitus with diabetic polyneuropathy; J44.9 Chronic obstructive pulmonary disease, unspecified; M19.011 Primary osteoarthritis, right shoulder; Z99.3 Dependence on wheelchair; M19.012 Primary osteoarthritis, left shoulder; M79.7 Fibromyalgia; M17.0 Bilateral primary osteoarthritis of knee; I87.2 Venous insufficiency (chronic) (peripheral); M79.604 Pain in right leg; M79.605 Pain in left leg

== ENCOUNTER → 2025-01-07 14:30 | Outpatient (BNVA) | payer MEDICARE, SELFPAY | PROVIDERS: PCP Internal Medicine; Visit Provider Internal Medicine | DX: Z99.3 Dependence on wheelchair (principal); E66.01 Morbid (severe) obesity due to excess calories; Z74.09 Other reduced mobility; R60.0 Localized edema; M79.7 Fibromyalgia; M19.041 Primary osteoarthritis, right hand; M19.042 Primary osteoarthritis, left hand; M17.0 Bilateral primary osteoarthritis of knee; I87.2 Venous insufficiency (chronic) (peripheral); M79.604 Pain in right leg; M79.605 Pain in left leg; R26.2 Difficulty in walking, not elsewhere classified; E11.42 Type 2 diabetes mellitus with diabetic polyneuropathy; J44.9 Chronic obstructive pulmonary disease, unspecified; Z99.81 Dependence on supplemental oxygen | CPT/HCPCS: 99212 ==

== ENCOUNTER 2025-02-17 08:47 | Outpatient (REF) | payer OTHER, SELFPAY ==
--- NOTE | ~2025-02-17 | XR_ITS ---
EXAMINATION: XR KNEE 3 VIEWS LEFT HISTORY: M25.569 - Pain in unspecified knee COMPARISON: Comparison is made with the prior examination dated 04/29/2023. FINDINGS: Three views of the left knee are submitted. Osseous mineralization is normal. There is no fracture or dislocation. There is moderate osteoarthritis of the medial compartment with joint space narrowing and osteophyte formation. There is a small joint effusion. XR/XR knee LT 3V IMPRESSION: Moderate osteoarthritis of the medial compartment. Small joint effusion. Electronically signed by: Luis Baird MD 02/17/2025 01:36 PM EDT
--- OUTSIDE RECORDS SUMMARY | 2025-02-18 09:01 | XMS_ITS | Clinical Summary ---
Author Organization [facility] Address [address] [address] [place] [address] Phone Care Team Providers Care Control System Manager Name Role Phone Unavailable Primary Care Provider [...] 100 UNIT/ML injection 1 Active Ultracare Pen [place] 32G X 4 MM [facility] DIRECTED ONCE DAILY 1 Active ipratropium-alb uterol [...] of chronic obstructive pulmon khalida disease 08/22/2021 Megvt-zi-ynyfvut respiratory failure 08/22/2021 Anxiety 08/22/2021 Asthma 08/22/2021 [...] age to complete this topic Insurance ([id number]) [facility] ([id number])
--- OUTSIDE RECORDS SUMMARY | 2025-02-18 09:01 | XMS_ITS | Clinical Summary ---
Author Organization [address] [facility] Address [address] [place] [address] Phone Care Team Providers Care Electronics Detail Draftsperson Name Role Phone Veronique Rivera MD Primary Care Provider [phone] Social History Tobacco Use Types Packs/Day Years [...] Info) Description 03/10/2025 10:15 AM EDT Evaluation [address] [address] Shaneka Torres PT Health Maintenance [...] Insurance MEDICAID - [place] [id number] Care Teams Electronics Detail Draftsperson Relationship Specialty Start Date End Date Veronique Rivera MD [address] [place] [address] PCP - General Internal Medicine 01/14/25
--- OUTSIDE RECORDS SUMMARY | 2025-03-01 20:00 | XMS_ITS | Clinical Summary ---
Author Organization Unknown Care Team Providers Care Clinical Laboratory Service Teacher Name Role Phone DANISHA MOORE, ASMA Unavailable Unavailable TERRI RN, [place] Unavailable Unavailable Payers Payer Name Policy Type Policy Number Effective Date Expira tion Date [employer] [facility] MEDICARE FFS [id number] [facility] [place] [id number] [place] [id number] MEDICARE - [facility] TARI/GRZEGORZ - PD [id number] Problems Condition Name Condition Details Condition Category Status Onset Date Resolution Date Last Treatment Date Treating Clinician Comments TYPE 2 DIABETES MELLITUS WITHOUT COMPLICATION S Active 11-02 00:00: 00 POST-TRAUMAT IC STRESS DISORDER, UNSPECIFIED Active 11-02 00:00: 00 OTHER SPECIFIED DISORDERS OF VEINS Active 10-29 00:00: 00 CHRONIC RESPIRATORY FAILURE, UNSP W HYPOXIA OR HYPERCAPNIA Active 10-29 00:00: 00 CHRONIC OBSTRUCTIVE PULMONARY DISEASE, UNSPECIFIED Active 10-29 00:00: 00 OBSTRUCTIVE SLEEP APNEA (ADULT) (PEDIATRIC) Active 10-29 00:00: 00 ESSENTIAL (PRIMARY) HYPERTENSION Active 10-29 00:00: 00 MORBID (SEVERE) OBESITY DUE TO EXCESS CALORIES Active 10-29 00:00: 00 HYPERLIPIDEM IA, UNSPECIFIED Active 10-29 00:00: 00 MAJOR DEPRESSIVE DISORDER, SINGLE EPISODE, MILD Active 10-29 00:00: 00 OTHER PSYCHOACTIVE SUBSTANCE ABUSE, UNCOMPLICATE D Active 10-29 00:00: 00 UNILATERAL PRIMARY OSTEOARTHRIT IS, LEFT KNEE Active 10-29 00:00: 00 SPONDYLOSIS W/O MYELOPATHY OR RADICULOPATH Y, LUMBAR REGION Active 10-29 00:00: 00 OTHER DISTURBANCES OF SKIN SENSATION Active 10-29 00:00: 00 CELLULITIS, UNSPECIFIED Active 10-29 00:00: 00 ACUTE ON CHRONIC DIASTOLIC (CONGESTIVE) HEART FAILURE Active 10-29 00:00: 00 ANXIETY DISORDER, UNSPECIFIED Active 4 00:00: 00 FUNCTIONAL DYSPEPSIA Active 10-29 00:00: 00 Allergies, Adverse Reactions, Alerts Allergy Name Allergy Type Status Severity Reaction(s) Onset Date Inactive Date Treating Clinician Comments ULTRAM Propensity to adverse reactions Active 11-05 07:44: 14 RISPERDAL Propensity to adverse reactions Active 11-05 07:27: 27 XANAX Propensity to adverse reactions Active 11-05 07:44: 14 Medications Ordered Medication Name Filled Medication Name Start Date Stop Date Current Medication? Ordering Clinician Indication Dosage Frequency Signature (SIG) Comments Components buprenorphi ne 8 mg-naloxone 2 mg sublingual film 09-22 00:00: 00 06-17 23:59 :00 No [id number] Per instruc tions EVERY DAY Per instructio ns EVERY DAY (route: sublingual ) Med Classific ation: Chemical Dependenc y, Agents to Treat glipizide 5 mg tablet 09-20 00:00: 00 06-17 23:59 :00 No [id number] Per instruc tions EVERY DAY Per instructio ns EVERY DAY (route: oral) Med Classific ation: Endocrine pantoprazol e 40 mg tablet,hiro yed release 09-19 00:00: 00 06-17 23:59 :00 No [id number] Per instruc tions EVERY DAY Per instructio ns EVERY DAY (route: oral) Med Classific ation: Gastroint estinal Therapy Agents torsemide 20 mg tablet 09-19 00:00: 00 10-01 23:59 :00 No [id number] Per instruc tions EVERY DAY Per instructio ns EVERY DAY (route: oral) Med Classific ation: Cardiovas cular Therapy Agents albuterol sulfate HFA 90 mcg/actuati on aerosol inhaler 09-16 00:00: 00 06-17 23:59 :00 No [id number] Per instruc tions 4 TIMES A DAY NEEDED Per instructio ns 4 TIMES A DAY NEEDED (route: inhalation ) Med Classific ation: Respirato ry Therapy Agents duloxetine 30 mg capsule,del ayed release 2-20 00:00: 00 06-17 23:59 :00 No [id number] Per instruc tions EVERY Per instructio ns EVERY (route: oral) Med Classific ation: Central Nervous System Agents Farxiga 5 mg tablet 2-19 00:00: 00 10-01 23:59 :00 No [id number] Per instruc tions EVERY DAY Per instructio ns EVERY DAY (route: oral) Med Classific ation: Endocrine duloxetine 60 mg capsule,del ayed release 2-16 00:00: 00 06-17 23:59 :00 No [id number] Per instruc tions EVERY DAY Per instructio ns EVERY DAY (route: oral) Med Classific ation: Central Nervous System Agents Lantus Solostar U-100 Insulin 100 unit/mL (3 mL) subcutaneou s pen 2-12 00:00: 00 06-17 23:59 :00 No [id number] Per instruc tions BEDTIME Per instructio ns BEDTIME (route: subcutaneo us) Med Classific ation: Endocrine atorvastati n 40 mg tablet 2-09 00:00: 00 06-17 23:59 :00 No [id number] Per instruc tions EVERY DAY Per instructio ns EVERY DAY (route: oral) Med Classific ation: Cardiovas cular Therapy Agents gabapentin 600 mg tablet 2-05 00:00: 00 06-17 23:59 :00 No [id number] Per instruc tions THREE TIMES DAILY Per instructio ns THREE TIMES DAILY (route: oral) Med Classific ation: Central Nervous System Agents Dupixent 200 mg/1.14 mL subcutaneou s syringe 2-01 00:00: 00 06-17 23:59 :00 No [id number] Per instruc tions DIRECTED Per instructio ns DIRECTED (route: subcutaneo us) Med Classific ation: Dermatolo gical lorazepam 1 mg tablet 1 00:00: 00 06-17 23:59 :00 No [id number] Per instruc tions THREE TIMES DAILY NEEDED Per instructio ns THREE TIMES DAILY NEEDED (route: oral) Med Classific ation: Central Nervous System Agents furosemide 40 mg tablet 1 00:00: 00 06-17 23:59 :00 No [id number] Per instruc tions EVERY DAY Per instructio ns EVERY DAY (route: oral) Med Classific ation: Cardiovas cular Therapy Agents Aspirin Childrens 81 mg chewable tablet 10-01 00:00: 00 06-17 23:59 :00 No [id number] 1 tablet DAILY 1 tablet DAILY (route: oral) Med Classific ation: Hematolog ical Agents buspirone 15 mg tablet 10-01 00:00: 00 06-17 23:59 :00 No [id number] 1 tablet EVERY 12 HOURS 1 tablet EVERY 12 HOURS (route: oral) Med Classific ation: Central Nervous System Agents calcium carbonate 500 mg calcium (1,250 mg) chewable tablet 10-01 00:00: 00 06-17 23:59 :00 No [id number] 1 tablet NEEDED 1 tablet NEEDED (route: oral) Med Classific ation: Electroly te Balance-N utritiona l Products cholecalcif krystal (vitamin D3) 25 mcg (1,000 unit) capsule 10-01 00:00: 00 06-17 23:59 :00 No [id number] 1 capsule DAILY 1 capsule DAILY (route: oral) Med Classific ation: Electroly te Balance-N utritiona l Products Farxiga 5 mg tablet 10-01 00:00: 00 06-17 23:59 :00 No [id number] 1 tablet DAILY 1 tablet DAILY (route: oral) Med Classific ation: Endocrine hydrochloro thiazide 25 mg tablet 10-01 00:00: 00 06-17 23:59 :00 No [id number] 1 tablet DAILY 1 tablet DAILY (route: oral) Med Classific ation: Cardiovas cular Therapy Agents melatonin 5 mg tablet 3-07 00:00: 00 06-17 23:59 :00 No [id number] 1 tablet BEDTIME 1 tablet BEDTIME (route: oral) Med Classific ation: Central Nervous System Agents metformin 500 mg tablet 3-07 00:00: 00 06-17 23:59 :00 No [id number] 2 tablet DAILY 2 tablet DAILY (route: oral) Med Classific ation: Endocrine roflumilast 500 mcg tablet 3-07 00:00: 00 10-13 23:59 :00 No [id number] 1 tablet DAILY 1 tablet DAILY (route: oral) Med Classific ation: Respirato ry Therapy Agents Senna with Docusate Sodium 8.6 mg-50 mg tablet 3-07 00:00: 00 06-17 23:59 :00 No [id number] 2 tablet BEDTIME 2 tablet BEDTIME (route: oral) Med Classific ation: Gastroint estinal Therapy Agents O2 - OXYGEN 3-19 00:00: 00 11-14 23:59 :00 No [id number] 2-4 Liter DAILY 2-4 Liter DAILY (route: Oxygen) Alternate Route: O2 - NASAL CANNULA. Med Classific ation: Medical Oxygen cephalexin 500 mg capsule 4-02 00:00: 00 10-29 23:59 :00 No [id number] 1 capsule 4 TIMES DAILY 1 capsule 4 TIMES DAILY (route: oral) Med Classific ation: Anti-Infe ctive Agents OXYGEN 4-16 00:00: 00 06-17 23:59 :00 No [id number] 4 Liter O2 - CONTINUOUS 4 Liter O2 - CONTINUOUS (route: Oxygen) Alternate Route: O2 - NASAL CANNULA. Med Classific ation: Medical Oxygen Adult Low Dose Aspirin 81 mg tablet,hiro yed release 4-09 00:00: 00 Yes [id number] 1 tablet DAILY 1 tablet DAILY (route: oral) Med Classific ation: Hematolog ical Agents albuterol sulfate 2.5 mg/3 mL (0.083 %) solution for nebulizatio n 11-03 00:00: 00 Yes [id number] Per instruc tions EVERY 6 HOURS Per instructio ns EVERY 6 HOURS (route: inhalation ) Med Classific ation: Respirato ry Therapy Agents atorvastati n 40 mg tablet 11-03 00:00: 00 Yes [id number] 1 tablet DAILY 1 tablet DAILY (route: oral) Med Classific ation: Cardiovas cular Therapy Agents buprenorphi ne 8 mg-naloxone 2 mg sublingual film 11-03 00:00: 00 Yes [id number] 3 film DAILY 3 film DAILY (route: sublingual ) Med Classific ation: Chemical Dependenc y, Agents to Treat buspirone 15 mg tablet 11-03 00:00: 00 Yes [id number] 1 tablet 2 TIMES DAILY 1 tablet 2 TIMES DAILY (route: oral) Med Classific ation: Central Nervous System Agents dapaglifloz in propanediol 10 mg tablet 11-03 00:00: 00 Yes [id number] 1 tablet DAILY 1 tablet DAILY (route: oral) Med Classific ation: Endocrine duloxetine 60 mg capsule,del ayed release 11-03 00:00: 00 Yes [id number] 2 capsule DAILY 2 capsule DAILY (route: oral) Med Classific ation: Central Nervous System Agents ferrous sulfate 325 mg (65 mg iron) tablet,hiro yed release 11-03 00:00: 00 Yes [id number] 1 tablet 2 TIMES DAILY 1 tablet 2 TIMES DAILY (route: oral) Med Classific ation: Electroly te Balance-N utritiona l Products gabapentin 300 mg capsule 11-03 00:00: 00 Yes [id number] 3 capsule 3 TIMES DAILY 3 capsule 3 TIMES DAILY (route: oral) Med Classific ation: Central Nervous System Agents glipizide 5 mg tablet 11-03 00:00: 00 Yes [id number] 1 tablet DAILY 1 tablet DAILY (route: oral) Med Classific ation: Endocrine Lantus U-100 Insulin 100 unit/mL subcutaneou s solution 11-03 00:00: 00 Yes [id number] 18 unit BEDTIME 18 unit BEDTIME (route: subcutaneo us) Med Classific ation: Endocrine lorazepam 1 mg tablet 11-03 00:00: 00 Yes [id number] 1 tablet 3 TIMES DAILY 1 tablet 3 TIMES DAILY (route: oral) Med Classific ation: Central Nervous System Agents metformin 500 mg tablet 11-03 00:00: 00 Yes [id number] 2 tablet DAILY 2 tablet DAILY (route: oral) Med Classific ation: Endocrine pantoprazol e 40 mg tablet,hiro yed release 11-03 00:00: 00 Yes [id number] 1 tablet DAILY 1 tablet DAILY (route: oral) Med Classific ation: Gastroint estinal Therapy Agents Senna with Docusate Sodium 8.6 mg-50 mg tablet 11-03 00:00: 00 Yes [id number] 2 tablet BEDTIME 2 tablet BEDTIME (route: oral) Med Classific ation: Gastroint estinal Therapy Agents torsemide 20 mg tablet 11-03 00:00: 00 Yes [id number] 1 tablet DAILY 1 tablet DAILY (route: oral) Med Classific ation: Cardiovas cular Therapy Agents Trelegy Ellipta 100 mcg-62.5 mcg-25 mcg powder for inhalation 11-03 00:00: 00 Yes [id number] 1 inhalat ion DAILY 1 inhalation DAILY (route: inhalation ) Med Classific ation: Respirato ry Therapy Agents triamcinolo ne acetonide 0.025 % topical cream 11-03 00:00: 00 Yes [id number] Per instruc tions 2 TIMES DAILY Per instructio ns 2 TIMES DAILY (route: topical) Med Classific ation: Dermatolo gical Dupixent 200 mg/1.14 mL subcutaneou s pen injector 11-05 00:00: 00 Yes [id number] 200 mg EVERY OTHER WEEK 200 mg EVERY OTHER WEEK (route: subcutaneo us) Med Classific ation: Dermatolo gical Trelegy Ellipta 200 mcg-62.5 mcg-25 mcg powder for inhalation 11-05 00:00: 00 Yes [id number] 1 inhalat ion DAILY 1 inhalation DAILY (route: inhalation ) Med Classific ation: Respirato ry Therapy Agents ibuprofen 600 mg tablet 11-05 00:00: 00 Yes [id number] pain, mild 1 tablet 3 TIMES DAILY 1 tablet 3 TIMES DAILY (route: oral) Med Classific ation: Analgesic , Anti-infl ammatory or Antipyret ic triamcinolo ne acetonide 0.025 % topical cream 11-05 00:00: 00 11-19 23:59 :00 No [id number] Per instruc tions 2 TIMES DAILY Per instructio ns 2 TIMES DAILY (route: topical) Med Classific ation: Dermatolo gical oxygen gas for inhalation 11-05 00:00: 00 Yes [id number] 4 Liter O2 - CONTINUOUS 4 Liter O2 - CONTINUOUS (route: inhalation ) Alternate Route: O2 - NASAL CANNULA. Med Classific ation: Medical Supplies and Durable Medical Equipment (DME) Immunizations Ordered Immunization Name Filled Immunization Name Date Status Comments Refusal Reason REFUSED FLU, PPV 2024-11-03 00:00:00 Vital Signs Vital Name Observation Time Observation Value Commen ts Temperature 2025-01-31 19:33:00.000 98.6 [degF] Temperature 2025-01-24 18:53:00.000 98.6 [degF] Temperature 2025-01-21 12:05:00.000 98.6 [degF] Temperature 2025-01-19 18:52:00.000 98.6 [degF] Temperature 2025-01-18 11:31:00.000 98.2 [degF] Temperature 2025-01-14 17:16:00.000 98.6 [degF] Temperature 2025-01-13 12:19:00.000 98.6 [degF] Temperature 2025-01-13 11:15:00.000 98.2 [degF] Temperature 2025-01-12 18:22:00.000 98.6 [degF] Temperature 2025-01-11 12:19:00.000 98.6 [degF] Temperature 2025-01-11 11:26:00.000 97.8 [degF] Temperature 2025-01-10 12:18:00.000 98.6 [degF] Temperature 2025-01-07 11:34:00.000 98.6 [degF] Temperature 2025-01-06 12:00:00.000 98 [degF] Temperature 2025-01-06 11:23:00.000 97.9 [degF] Temperature 2025-01-05 12:16:00.000 98.6 [degF] Temperature 2025-01-03 11:59:00.000 98.6 [degF] Pulse 2025-01-31 19:33:00.000 82 /min Pulse 2025-01-24 18:53:00.000 82 /min Pulse 2025-01-21 12:05:00.000 88 /min Pulse 2025-01-19 18:52:00.000 86 /min Pulse 2025-01-18 11:31:00.000 84 /min Pulse 2025-01-14 17:16:00.000 82 /min Pulse 2025-01-13 12:19:00.000 82 /min Pulse 2025-01-13 11:15:00.000 84 /min Pulse 2025-01-12 18:22:00.000 82 /min Pulse 2025-01-11 12:19:00.000 80 /min Pulse 2025-01-11 11:26:00.000 99 /min Pulse 2025-01-10 12:18:00.000 82 /min Pulse 2025-01-07 11:34:00.000 82 /min Pulse 2025-01-06 12:00:00.000 82 /min Pulse 2025-01-06 11:23:00.000 82 /min Pulse 2025-01-05 12:16:00.000 82 /min Pulse 2025-01-03 11:59:00.000 82 /min O2 Saturation (%) 2025-01-24 18:54:00.000 97 % Respirations 2025-01-31 19:33:00.000 20 /min Respirations 2025-01-24 18:53:00.000 20 /min Respirations 2025-01-21 12:05:00.000 20 /min Respirations 2025-01-19 18:52:00.000 20 /min Respirations 2025-01-18 11:31:00.000 18 /min Respirations 2025-01-14 17:16:00.000 20 /min Respirations 2025-01-13 12:19:00.000 20 /min Respirations 2025-01-13 11:15:00.000 19 /min Respirations 2025-01-12 18:22:00.000 20 /min Respirations 2025-01-11 12:19:00.000 20 /min Respirations 2025-01-11 11:26:00.000 18 /min Respirations 2025-01-10 12:18:00.000 20 /min Respirations 2025-01-07 11:34:00.000 20 /min Respirations 2025-01-06 12:00:00.000 20 /min Respirations 2025-01-06 11:23:00.000 19 /min Respirations 2025-01-05 12:16:00.000 20 /min Respirations 2025-01-03 11:59:00.000 20 /min Systolic Blood Pressure 2025-01-31 19:33:00.000 162 mm [Hg] Systolic Blood Pressure 2025-01-24 18:53:00.000 138 mm [Hg] Systolic Blood Pressure 2025-01-21 12:05:00.000 129 mm [Hg] Systolic Blood Pressure 2025-01-19 18:52:00.000 146 mm [Hg] Systolic Blood Pressure 2025-01-18 11:31:00.000 133 mm [Hg] Systolic Blood Pressure 2025-01-14 17:16:00.000 142 mm [Hg] Systolic Blood Pressure 2025-01-13 12:19:00.000 163 mm [Hg] Systolic Blood Pressure 2025-01-13 11:15:00.000 115 mm [Hg] Systolic Blood Pressure 2025-01-12 18:22:00.000 138 mm [Hg] Systolic Blood Pressure 2025-01-11 12:19:00.000 129 mm [Hg] Systolic Blood Pressure 2025-01-11 11:26:00.000 140 mm [Hg] Systolic Blood Pressure 2025-01-10 12:18:00.000 142 mm [Hg] Systolic Blood Pressure 2025-01-07 11:34:00.000 138 mm [Hg] Systolic Blood Pressure 2025-01-06 12:00:00.000 129 mm [Hg] Systolic Blood Pressure 2025-01-06 11:23:00.000 140 mm [Hg] Systolic Blood Pressure 2025-01-05 12:16:00.000 142 mm [Hg] Systolic Blood Pressure 2025-01-03 11:59:00.000 135 mm [Hg] Diastolic Blood Pressure 2025-01-31 19:33:00.000 78 mm [Hg] Diastolic Blood Pressure 2025-01-24 18:53:00.000 78 mm [Hg] Diastolic Blood Pressure 2025-01-21 12:05:00.000 82 mm [Hg] Diastolic Blood Pressure 2025-01-19 18:52:00.000 88 mm [Hg] Diastolic Blood Pressure 2025-01-18 11:31:00.000 90 mm [Hg] Diastolic Blood Pressure 2025-01-14 17:16:00.000 78 mm [Hg] Diastolic Blood Pressure 2025-01-13 12:19:00.000 100 m m[Hg] Diastolic Blood Pressure 2025-01-13 11:15:00.000 90 mm [Hg] Diastolic Blood Pressure 2025-01-12 18:22:00.000 72 mm [Hg] Diastolic Blood Pressure 2025-01-11 12:19:00.000 82 mm [Hg] Diastolic Blood Pressure 2025-01-11 11:26:00.000 69 mm [Hg] Diastolic Blood Pressure 2025-01-10 12:18:00.000 78 mm [Hg] Diastolic Blood Pressure 2025-01-07 11:34:00.000 72 mm [Hg] Diastolic Blood Pressure 2025-01-06 12:00:00.000 78 mm [Hg] Diastolic Blood Pressure 2025-01-06 11:23:00.000 78 mm [Hg] Diastolic Blood Pressure 2025-01-05 12:16:00.000 82 mm [Hg] Diastolic Blood Pressure 2025-01-03 11:59:00.000 82 mm [Hg] Plan of Treatment Planned Activity Planned Date Details Comments Future Scheduled Test SKILLED NU RSE TO EVALUATE PATIENT, IDENTIFY PRIMARY AND CO-MORBID CONDITIONS CODED PER CODING GUIDELINES, AND DEVELOP PATIENT SPECIFIC PLAN OF CARE THAT INCLUDES PATIENT GOAL FOR HOME HEALTH. [code = SKILLED NURSE TO EVALUATE PATIENT, IDENTIFY PRIMARY AND CO-MORBID CONDITIONS CODED PER CODING GUIDELINES, AND DEVELOP PATIENT SPECIFIC PLAN OF CARE THAT INCLUDES PATIENT GOAL FOR HOME HEALTH.] Future Scheduled Test SKILLED NU RSE TO O/A OF PATIENTS MENTAL/BEHAVIORAL STATUS, ASSESS VITAL SIGNS ALLOW 2 PRNS FOR MEDICATION MANAGEMENT. [code = SKILLED NURSE TO O/A OF PATIENTS MENTAL/BEHAVIORAL STATUS, ASSESS VITAL SIGNS ALLOW 2 PRNS FOR MEDICATION MANAGEMENT.] Future Scheduled Test SKILLED NU RSE FOR O/A OF ALTERED MOOD [code = SKILLED NURSE FOR O/A OF ALTERED MOOD] Future Scheduled Test SKILLED NU RSE FOR O/A OF GENERAL HEALTH STATUS OF PAIN, CARDIAC, RESPIRATORY, GASTROINTESTINAL, GENITOURINARY, SKIN, NEUROLOGIC, ENDOCRINE SYSTEMS TO IDENTIFY CHANGES ASSOCIATED WITH EXACERBATION FOR EARLY INTERVENTION OF COMPLICATIONS, [code = SKILLED NURSE FOR O/A OF GENERAL HEALTH STATUS OF PAIN, CARDIAC, RESPIRATORY, GASTROINTESTINAL, GENITOURINARY, SKIN, NEUROLOGIC, ENDOCRINE SYSTEMS TO IDENTIFY CHANGES ASSOCIATED WITH EXACERBATION FOR EARLY INTERVENTION OF COMPLICATIONS,] Future Scheduled Test SKILLED NU RSE FOR O/A AND SKILLED TEACHING OF COPING SKILLS TO MANAGE ANXIETY AND MAINTAIN SAFETY. [code = SKILLED NURSE FOR O/A AND SKILLED TEACHING OF COPING SKILLS TO MANAGE ANXIETY AND MAINTAIN SAFETY.] Future Scheduled Test SKILLED NU RSE FOR O/A AND SKILLED TEACHING RELATED TO MANAGEMENT OF DEPRESSIVE SYMPTOMS AND/OR DEPRESSION. SN TO REPORT SIGNIFICANT CHANGE IN DEPRESSIVE SYMPTOMS TO CLINICAL PROVIDER FOR EARLY INTERVENTION. [code = SKILLED NURSE FOR O/A AND SKILLED TEACHING RELATED TO MANAGEMENT OF DEPRESSIVE SYMPTOMS AND/OR DEPRESSION. SN TO REPORT SIGNIFICANT CHANGE IN DEPRESSIVE SYMPTOMS TO CLINICAL PROVIDER FOR EARLY INTERVENTION.] Future Scheduled Test SKILLED NU RSE FOR O/A AND TEACHING OF ENDOCRINE SYSTEM TO IDENTIFY CHANGES ASSOCIATED WITH EXACERBATION FOR EARLY INTERVENTION OF COMPLICATIONS. [code = SKILLED NURSE FOR O/A AND TEACHING OF ENDOCRINE SYSTEM TO IDENTIFY CHANGES ASSOCIATED WITH EXACERBATION FOR EARLY INTERVENTION OF COMPLICATIONS.] Future Scheduled Test SKILLED NU RSE FOR O/A OF RESPIRATORY SYSTEM TO IDENTIFY CHANGES ASSOCIATED WITH EXACERBATION AND TO PROVIDE SKILLED TEACHING ON MANAGEMENT OF RESPIRATORY DISEASE PROCESS. [code = SKILLED NURSE FOR O/A OF RESPIRATORY SYSTEM TO IDENTIFY CHANGES ASSOCIATED WITH EXACERBATION AND TO PROVIDE SKILLED TEACHING ON MANAGEMENT OF RESPIRATORY DISEASE PROCESS.] Future Scheduled Test SKILLED NU RSE TO REVIEW PATIENT MEDICATIONS. INSTRUCT PATIENT/CAREGIVER ON MONITORING OF EFFECTIVENESS, ADVERSE DRUG REACTIONS, SIDE EFFECTS OF ALL MEDICATIONS (PRESCRIPTION/-OTC), AND HOW AND WHEN TO REPORT PROBLEMS. [code = SKILLED NURSE TO REVIEW PATIENT MEDICATIONS. INSTRUCT PATIENT/CAREGIVER ON MONITORING OF EFFECTIVENESS, ADVERSE DRUG REACTIONS, SIDE EFFECTS OF ALL MEDICATIONS (PRESCRIPTION/-OTC), AND HOW AND WHEN TO REPORT PROBLEMS.] Future Scheduled Test SKILLED NU RSE FOR O/A OF MUSCULOSKELETAL STATUS AND TEACHING ON MEASURES TO MANAGE MUSCULOSKELETAL DISEASE) AND TO MAINTAIN SAFETY WITH ACTIVITY [code = SKILLED NURSE FOR O/A OF MUSCULOSKELETAL STATUS AND TEACHING ON MEASURES TO MANAGE MUSCULOSKELETAL DISEASE) AND TO MAINTAIN SAFETY WITH ACTIVITY] Future Scheduled Test SKILLED NU RSE TO ASSESS PATIENTS PSYCHOSOCIAL STATUS TO IDENTIFY POTENTIAL ISSUES THAT MAY COMPLICATE THE PROVISION OF THE PLAN OF CARE INCLUDING THE PATIENTS ABILITY TO ACCESS COMMUNITY RESOURCES AND PSYCHOSOCIAL SUPPORT SERVICES. [code = SKILLED NURSE TO ASSESS PATIENTS PSYCHOSOCIAL STATUS TO IDENTIFY POTENTIAL ISSUES THAT MAY COMPLICATE THE PROVISION OF THE PLAN OF CARE INCLUDING THE PATIENTS ABILITY TO ACCESS COMMUNITY RESOURCES AND PSYCHOSOCIAL SUPPORT SERVICES.] Future Scheduled Test SKILLED NU RSE WILL MAINTAIN SITUATIONAL AWARENESS FOR SAFETY AND WILL NOTIFY CLINICAL TELEPHONE AD TAKER AND PHYSICIAN/PROVIDER WITH ANY CHANGE IN CONDITION. [code = SKILLED NURSE WILL MAINTAIN SITUATIONAL AWARENESS FOR SAFETY AND WILL NOTIFY CLINICAL TELEPHONE AD TAKER AND PHYSICIAN/PROVIDER WITH ANY CHANGE IN CONDITION.] Future Scheduled Test OXYGEN VIA NASAL CANNULA) @ 4 LITERS CONTINUOUS). SKILLED NURSE FOR O/A AND SKILLED TEACHING OF SAFE OXYGEN USE IN THE HOME. [code = OXYGEN VIA NASAL CANNULA) @ 4 LITERS CONTINUOUS). SKILLED NURSE FOR O/A AND SKILLED TEACHING OF SAFE OXYGEN USE IN THE HOME.] Future Scheduled Test MEDICATION S WILL BE HELD AND STORED IN MEDICATION SAFE. [code = MEDICATIONS WILL BE HELD AND STORED IN MEDICATION SAFE.] Future Scheduled Test PHYSICAL T HERAPIST TO EVALUATE PATIENT SECONDARY TO FUNCTIONAL DEFICITS/SAFETY CONCERNS.PATIENT BEING SEEN FOR HOME PHYSICAL THERAPY A RESULT OF GENERALIZED WEAKNESS DECREASED FUNCTIONAL STRENGTH AND ENDURANCE DIFFICULTY WITH TRANSFERS AND AMBULATION. PATIENT HAS BEEN PROGRESSING SLOWLY INTRODUCED TO A THERAPEUTIC EXERCISE TRAINING PROGRAM FOR THE TRUNK AND EXTREMITIES TO IMPROVE FUNCTIONAL MOBILITY WITH ACTIVITIES OF DAILY LIVING ALSO EDUCATED REGARDING TRANSFER TRAINING WELL SHORT DISTANCE GAIT TRAINING WITH STANDARD WALKER. OVERALL PATIENT MAKING GRADUAL PROGRESS IN IMPROVING RANGE OF MOTION STRENGTH A RESULT OF THERAPEUTIC EXERCISES CHALLENGE WITH TRANSFERS CONTINUES TO REQUIRE SIGNIFICANT UPPER EXTREMITY ASSISTANCE DUE TO LOWER EXTREMITY WEAKNESS AND KNEE PAIN. ABLE TO AMBULATE ONLY SHORT DISTANCES APPROXIMATELY 15 FT WITH STANDARD WALKER PRIOR TO REQUIRING SEATED REST DUE TO FATIGUE SHORTNESS OF BREATH AND SOME KNEE PAIN WELL. PATIENT WOULD BENEFIT FROM AND WILL REQUIRE CONTINUED PHYSICAL THERAPY TO ADDRESS RANGE OF MOTION AND STRENGTH FUNCTIONAL ENDURANCE DYNAMIC STANDING BALANCE TRANSFER AND PROGRESSION TO AMBULATION TRAINING WITH ASSISTIVE DEVICE. PATIENT AGREES TO THE AFOREMENTIONED PLAN OF CARE TO CONTINUE WITH PHYSICAL THERAPY IN THE HOME. PHYSICAL THERAPY TO ESTABLISH /UPGRADE/DOWNGRADE THERAPEUTIC EXERCISE PROGRAM AND INSTRUCT PATIENT/CAREGIVER ON EXERCISE PRECAUTIONS WITH WRITTEN HOME PROGRAM. MAY INCLUDE PROM, AAROM, AROM, RROM APPROPRIATE TO IMPROVE FUNCTIONAL STRENGTH AND RANGE OF MOTION. PHYSICAL THERAPY TO INSTRUCT PATIENT/CAREGIVER ON SAFE TRANSFER TECHNIQUES USING PROPER BODY MECHANICS AND EQUIPMENT. PHYSICAL THERAPY TO INSTRUCT PATIENT/CAREGIVER ON GAIT TRAINING TECHNIQUES USING APPROPRIATE ASSISTIVE DEVICE, PROPER BODY MECHANICS TO IMPROVE MOBILITY, AND PREVENT INJURY OF PATIENT AND/OR CAREGIVER. [code = PHYSICAL THERAPIST TO EVALUATE PATIENT SECONDARY TO FUNCTIONAL DEFICITS/SAFETY CONCERNS.PATIENT BEING SEEN FOR HOME PHYSICAL THERAPY A RESULT OF GENERALIZED WEAKNESS DECREASED FUNCTIONAL STRENGTH AND ENDURANCE DIFFICULTY WITH TRANSFERS AND AMBULATION. PATIENT HAS BEEN PROGRESSING SLOWLY INTRODUCED TO A THERAPEUTIC EXERCISE TRAINING PROGRAM FOR THE TRUNK AND EXTREMITIES TO IMPROVE FUNCTIONAL MOBILITY WITH ACTIVITIES OF DAILY LIVING ALSO EDUCATED REGARDING TRANSFER TRAINING WELL SHORT DISTANCE GAIT TRAINING WITH STANDARD WALKER. OVERALL PATIENT MAKING GRADUAL PROGRESS IN IMPROVING RANGE OF MOTION STRENGTH A RESULT OF THERAPEUTIC EXERCISES CHALLENGE WITH TRANSFERS CONTINUES TO REQUIRE SIGNIFICANT UPPER EXTREMITY ASSISTANCE DUE TO LOWER EXTREMITY WEAKNESS AND KNEE PAIN. ABLE TO AMBULATE ONLY SHORT DISTANCES APPROXIMATELY 15 FT WITH STANDARD WALKER PRIOR TO REQUIRING SEATED REST DUE TO FATIGUE SHORTNESS OF BREATH AND SOME KNEE PAIN WELL. PATIENT WOULD BENEFIT FROM AND WILL REQUIRE CONTINUED PHYSICAL THERAPY TO ADDRESS RANGE OF MOTION AND STRENGTH FUNCTIONAL ENDURANCE DYNAMIC STANDING BALANCE TRANSFER AND PROGRESSION TO AMBULATION TRAINING WITH ASSISTIVE DEVICE. PATIENT AGREES TO THE AFOREMENTIONED PLAN OF CARE TO CONTINUE WITH PHYSICAL THERAPY IN THE HOME. PHYSICAL THERAPY TO ESTABLISH /UPGRADE/DOWNGRADE THERAPEUTIC EXERCISE PROGRAM AND INSTRUCT PATIENT/CAREGIVER ON EXERCISE PRECAUTIONS WITH WRITTEN HOME PROGRAM. MAY INCLUDE PROM, AAROM, AROM, RROM APPROPRIATE TO IMPROVE FUNCTIONAL STRENGTH AND RANGE OF MOTION. PHYSICAL THERAPY TO INSTRUCT PATIENT/CAREGIVER ON SAFE TRANSFER TECHNIQUES USING PROPER BODY MECHANICS AND EQUIPMENT. PHYSICAL THERAPY TO INSTRUCT PATIENT/CAREGIVER ON GAIT TRAINING TECHNIQUES USING APPROPRIATE ASSISTIVE DEVICE, PROPER BODY MECHANICS TO IMPROVE MOBILITY, AND PREVENT INJURY OF PATIENT AND/OR CAREGIVER.] Goal 2024-12-28 Patient Goal - I WANT TO GET STRONGER. Goal Patient Goal - I WANT TO GET STRONGER. Goal Provider Goal - A PLAN OF CARE WILL BE ESTABLISHED THAT MEETS PATIENT'S SNF NEEDS AND INCLUDES PATIENT GOAL FOR HOME HEALTH. Goal Provider Goal - ALTERED MENTAL/BEHAVIORAL STATUS WILL BE IDENTIFIED PROMPTLY AND INTERVENTION INITIATED QUICKLY TO MINIMIZE ASSOCIATED RISKS THROUGHOUT CERTIFICATION PERIOD. Goal Provider Goal - PATIENT WILL BE ABLE TO PERFORM DAILY FUNCTIONS AND HAVE OPTIMAL IMPROVEMENT IN MOOD STABILITY THROUGHOUT CERTIFICATION PERIOD. Goal Provider Goal - CHANGE IN GENERAL HEALTH STATUS WILL BE IDENTIFIED AND REPORTED TO PHYSICIAN FOR PROMPT INTERVENTION TO MINIMIZE ASSOCIATED RISKS THROUGHOUT CERTIFICATION PERIOD. Goal Provider Goal - PATIENT WILL BE ABLE TO PERFORM DAILY FUNCTIONS AND HAVE OPTIMAL IMPROVEMENT IN LEVEL OF ANXIETY THROUGHOUT CERTIFICATION PERIOD. Goal Provider Goal - PATIENT WILL REMAIN SAFE WITHOUT DECOMPENSATION IN DEPRESSIVE CONDITION, WHILE MAINTAINING OPTIMAL LEVEL OF MENTAL HEALTH AND WELL BEING THROUGHOUT CERTIFICATION PERIOD. Goal Provider Goal - PATIENT/CAREGIVER WILL VERBALIZE SIGNS AND SYMPTOMS OF EXACERBATION DIABETES TO REPORT TO NURSE/PHYSICIAN THROUGHOUT THE CERTIFICATION PERIOD. Goal Provider Goal - PATIENT/CAREGIVER WILL VERBALIZE/DEMONSTRATE MANAGEMENT OF COPDRESPIRATORY DISEASE PROCESS. CHANGES IN RESPIRATORY STATUS WILL BE IDENTIFIED AND REPORTED TO PHYSICIAN FOR PROMPT INTERVENTION THROUGHOUT THE CERTIFICATION PERIOD. Goal Provider Goal - PATIENT/CAREGIVER WILL VERBALIZE UNDERSTANDING OF EDUCATION PROVIDED ON MEDICATIONS BY THE END OF THE CERTIFICATION PERIOD. Goal Provider Goal - PATIENT/CAREGIVER WILL VERBALIZE/DEMONSTRATE ABILITY TO MANAGE MUSCULOSKELETAL DISEASE WHILE MAINTAINING SAFETY THROUGHOUT THE EPISODE. Goal Provider Goal - PSYCHOSOCIAL NEEDS WILL BE IDENTIFIED AND PLAN IMPLEMENTED TO MINIMIZE RISK THROUGHOUT CERTIFICATION PERIOD. Goal Provider Goal - PATIENT WILL REMAIN SAFE IN THE COMMUNITY AND WILL BE FREE OF DANGER TO SELF AND OTHERS THROUGHOUT THE CERTIFICATION PERIOD. Goal Provider Goal - PATIENT/CAREGIVER WILL VERBALIZE/DEMONSTRATE UNDERSTANDING OF SAFE OXYGEN USE IN THE HOME THROUGHOUT THE EPISODE. Goal Provider Goal - MEDICATIONS WILL BE STORED IN MEDICATION SAFE FOR SAFETY. Goal Provider Goal - PHYSICAL THERAPY EVALUATION TO BE COMPLETED WITH RECOMMENDATIONS AND/OR WRITTEN TREATMENT PLAN OF CARE ESTABLISHED FOR THE PHYSICIANS SIGNATURE PATIENT/CAREGIVER WILL PERFORM THERAPEUTIC EXERCISE/S AND DEMONSTRATE PARTICIPATION IN A HOME PROGRAM. PATIENT/CAREGIVER WILL DEMONSTRATE SAFE TRANSFERS USING APPROPRIATE ASSISTIVE DEVICE, BODY MECHANICS AND EQUIPMENT. PATIENT/CAREGIVER WILL DEMONSTRATE IMPROVED GAIT TECHNIQUES TO MINIMIZE RISK OF INJURY. Encounters Start Date/Time End Date/Time Encounter Type Admission Type Attending Clinicians Care Facility Care Department Encounter ID Discharge Date Discharge Status Discharge Condition Discharge Reason Percent Goals Met 2025-01-02 00:00:00 2025-03-02 00:00:00 Outpatient [facility] [id number] 15.15
== END 2025-02-17 08:48 | disposition home or self-care (01) ==
LOC: HO.HOSX 08:47
PROVIDERS: Visit Provider Physician Assistant
DX: M17.0 Bilateral primary osteoarthritis of knee (principal); M25.562 Pain in left knee; I87.2 Venous insufficiency (chronic) (peripheral); Z96.641 Presence of right artificial hip joint
CPT/HCPCS: 73562; 99212

== ENCOUNTER 2025-02-17 13:13 | Outpatient (AMB) | payer OTHER, SELFPAY ==
--- OUTSIDE RECORDS SUMMARY | 2025-02-17 13:22 | XMS_ITS | Data Portability ---
Author Organization [place] [facility] Address [address] [place] [address] Care Team Providers Care Card Services Specialist Name Role Phone DANISHADAJADelaney Primary Care Provider Assessment Encounter Date Assessment Date Assessment LastModified by Organization Details LastModified Time 11/20/2020 11/20/2020 PATIENT WAS NOT SEEN- DO NOT BILL [email or web address] Not available 11/20/2020 20:10:36 11/21/2020 11/21/2020 Overview/History : 65-year-old female [facility] past medical history significant [...] EMS called, report given, pt transported [facility] [place] workup. All questions answered prior to DH departure. In order to obtain further information [...] after care of this patient according to [facility]'s infection prevention protocols. Time On Scene with Patient: 00:34:41 Not available 11/21/2020 13:10:17 Plan of Treatment [...] By Organization Details Last Modified Time 11/21/2020 [id number] Pt->ED [email or web address] Not available 11/21 12:51:59 Reason for Referral None Reported. Procedures Surgical History Date Name Laterality Status Provider Name and Address Organization Details Recorded Time 11/22/19 21 Medication Review completed Raquel Davidson NP [address], [place], [address], [place] [facility] 11/21/2020 12:51:46 Imaging Results None recorded. Procedure Notes None recorded. Medical Equipment None Reported. Allergies Allergen ID Allergen Name Allergen Category Reaction Reaction Severity Criticality Documentation Date Start Date Code Code System Note Provider Name and Address Organization Details Recorded Time 499022 Risperdal medicatio n Not available Not available Not available 11/21/2020 80420 8 RxNorm Raquel Davidson NP [address] [facility] [place], [address], [place] [facility] 1 11:06:41 [id number] Xanax medicatio n Not available Not available Not available 11/21/202004988 3 RxNorm Raquel Davidson, VULNERABILITY RESEARCHER [address], [place], [address], [place] [facility] 1 11:06:46 737007 Ultram medicatio n Not available Not available Not available 11/21/2020 63940 6 RxNorm Raquel Davidson, VULNERABILITY RESEARCHER [address], [facility] [place], [address], [place] [facility] 11:18:21 [...] Time Tobacco Smoking Status Never Smoker Raquel Davidson, SILVIA [address], [place], [address], [place] [facility] 11/21/2020 11:07:32 What Is Your Code Status? Full Code Information not available 11/21/2020 Within The Past 12 Months, Has It Happened That The Food You Bought Just Didn't Last And You Didn't Have Money To Get More. No [email or web address] Information not available 11/21/2020 Within The Past 12 Months, Have You Worried That Your Food Would Run Out Before You Got Money To Buy More. No [email or web address] Information not available 11/21/2020 Fall Risk: Do You Feel Unsteady When Standing Or Walking? Yes [email or web address] Information not available 11/21/2020 We Know That How And When People Interact With Friends And Family Can Be Very Different From Person To Person. How Often Do You Have The Opportunity To See Or Talk To People That You Care About And Feel Close To? (Ex: Talking To Friends On The Phone Or Visiting Friends Or Family Or Going To Spiritism Or Club Meetings) 5 Or More Times Per Week [email or web address] Information not available 11/21/2020 We Know From Many Of Our Patients That Covering All Of Their Costs Can Be Difficult At Times. This Can Cause Stress And Impact Health. In The Past Year, Have You Been Unable To Get Any Of The Following When It Was Really Needed? No Information not available 11/21/2020 What Is Your Housing Situation Today? I Have Housing [email or web address] Information not available 11/21/2020 Would You Like Help Connecting To Resources? None Information not available 11/21/2020 Sex: Unknown Functional Status None recorded. Mental Status None recorded. Family History Relationship Description Onset Age of this Age Resolved Age Notes LastModified by Organization Details LastModified Time Brother Diabetes mellitus [email or web address] Not available 2020 12:54:16 Medical History Condition [...] SNOMED-CT Code Diagnosis ICD10 Code Diagnosis Note [id number] NATHALIA FERNANDEZ NP [facility] [address] [place] [address] 11/20/2020 16:59:20 11/21/2020 10:51:30 [id number] Raquel Davidson NP [facility] [address] [place] [address] 11/21/2020 10:51:54 11/22/2020 15:24:04 Hypoxia 634325458 R09.02 Tachycardia 5298461 R00. 0 Chronic ob structive pulmonary disease 54124012 J44.9 Diabetes mellitus 881238 09 E11.9 Pain in right arm 393869 004 M79.601 Pain in left knee 678927 3120 37788 M25.562 Health Concerns Section Related Observation LastModified by Organization Detai ls LastModified Time None Recorded Concern Status LastModified by Organization Details LastModified Time None Recorded Advance Directives Directive None Recorded Payers Insurance Date Sequence Insurance Name Policy Number Policy Guajardo Covered Member ID Guajardo Member ID Guarantor Name 11/20/2020 1 [facility] - DOS PRIOR TO 2022 - DUAL ELIGIBLE (MEDICARE REPLACEMENT/ADV ANTAGE - HMO) Celi Munoz [id number] Celi Appleedo 11/20/2020 2 [place] [employer] Celi Appleedo [id number] Celi Appleedo 11/20/2020 2 [place] [facility] Celi Appleedo [id number] Celi Baltazar Alexander 11/20/2020 1 *SELF PAY* Celi Pottso [id number] Celi Appleedo 11/20/2020 1 [facility] - DOS PRIOR TO 2022 - DUAL ELIGIBLE (MEDICARE REPLACEMENT/ADV ANTAGE - HMO) Celi Appleedo [id number] Celi Baltazar Alexander 11/22/2020 2 [place] [facility] Celi Appleedo [id number] Celi Appleedo Notes Date Note Type Note Provider Name and Address Organization Details Recorded Time 11/20/2020 text/html PATIENT WAS NOT SEEN- DO NOT BILL NATHALIA FERNANDEZ NP [address], [place], [address], [place] [facility] 11/20/2020 20:10:45 11/21/2020 text/html [...] spouse. Raquel Davidson NP [address], [place], [address], [place] [facility] 11/21/2020 13:10:56 OBGyn Episode No OBEpisode recorded.
--- OUTSIDE RECORDS SUMMARY | 2025-02-17 13:22 | XMS_ITS | Clinical Summary ---
Author Organization [facility] Address [address] [place] [address] Phone Care Team Providers Care Calciner Operator Name Role Phone Veronique Rivera MD Primary Care Provider [phone] Social History Tobacco Use Types Packs/Day Years Used Date Smoking Tobacco: Never Assessed Comments Unknown Sex and Gender Information Value Date Recorded Sex Assigned at Not on file Legal Sex Female 1:32 AM EST Gender Identity Not on file Sexual Orientation Not on file Plan of Treatment Upcoming Encounters Date Type Department Care Team (Late st Contact Info) Description 03/10/2025 10:15 AM EDT Evaluation [address] [address] Shaneka Torres PT Health Maintenance Due Date Last Done Comments Breast Cancer Screening 1955 DTaP,Tdap,and Td Vaccines (1 - Tdap) 10/10/1974 Pneumococcal Vaccine: 50+ Ye ars (1 of 1 - PCV) 10/10/2005 Zoster Vaccines (1 of 2) 10/10/2005 COVID-19 Vaccine ( - 2023-2 5 season) 2024 Depression Screening 07/28/2024 Colorectal Cancer Screening: Colonoscopy 01/14/2025 Falls Risk Assessment 01/14/2025 Hepatitis C Screening 01/14/2025 Medicare Annual Wellness Visit 01/14/2025 Osteoporosis Screening (Bone Density Screening) 01/14/2025 Social Influencers of Health Screening 01/14/2025 Influenza Vaccine (#1) 2025 RSV Immunization Adult Patie nts (1 - 1-dose 75+ series) 10/10/2030 HIB Vaccines Aged Out No longer eligi ble based on patient's age to complete this topic HPV Vaccines Aged Out No longer eligi ble based on patient's age to complete this topic Hepatitis A Vaccines Aged Out No long er eligible based on patient's age to complete this topic Hepatitis B Vaccines Aged Out No long er eligible based on patient's age to complete this topic IPV Vaccines Aged Out No longer eligi ble based on patient's age to complete this topic MMR Vaccines Aged Out No longer eligi ble based on patient's age to complete this topic Meningococcal ACWY Vaccine Aged Out N o longer eligible based on patient's age to complete this topic Meningococcal B Vaccine Aged Out No l onger eligible based on patient's age to complete this topic RSV Immunization Patients Un patti 20 months Aged Out No longer eligible b ased on patient's age to complete this topic Varicella Vaccines Aged Out No longer eligible based on patient's age to complete this topic Insurance [place]ICAID - [place] [employer] MEDICARE Care Teams Calciner Operator Relationship Specialty Start Date End Date Veronique Rivera MD [address] [place] [address] PCP - General Internal Medicine 01/14/25
--- OUTSIDE RECORDS SUMMARY | 2025-02-17 13:22 | XMS_ITS | Clinical Summary ---
Author Organization [facility] Address [address] [facility] [address] [place] [address] Phone Care Team Providers Care Enamel Shader Name Role Phone Unavailable Primary Care Provider [...] 100 UNIT/ML injection 1 Active Ultracare Pen [place] 32G X 4 MM [facility] DIRECTED ONCE DAILY 1 [...] of chronic obstructive pulmon khalida disease 08/22/2021 [id number]-[id number]-[id number] respiratory failure 08/22/2021 Anxiety 08/22/2021 Asthma 08/22/2021 [...] the referring source. Mammography abnormal 01/30/2007 Immunizations Immunization Administration Dates Next Due Pneumococcal Polysaccharide 12/17/2013, [...] Colorectal Cancer Screening: Sigmoidoscopy 10/10/2004 Pneumococcal Vaccine: 50+ Years (2 of 2 - PCV) 12/17/2014 12/17/2013, 08/23/2007 Diabetes: Hemoglobin A1C 07/25/2021 Diabetes: Ophthalmology Exam 07/25/2021 Diabetes: Pedal Pulse Checked 07/25/2021 Diabetes: Sensory Foot Exam 07/25/2021 Diabetes: Visual Foot Exam 07/25/2021 Influenza Vaccine (#1) 2025 Pneumococcal Vaccine: Peds ( 0 to 5 Years) and At-Risk Patients (6 to 49 Years) Discontinued 12/17/2013, 08/23/2007 Hepatitis B Vaccine Aged Out No longe r eligible based on patient's age to complete this topic Insurance ([id number]) [facility] ([id number])
[2025-02-17 13:30] VITALS: BMI 38.0
--- NOTE | 2025-02-17 13:30 | MHC.OFFVIS ---
Vital Signs 02/17/25 13:30 Height 5 ft 8 in Weight 250 lb BMI 38.0 Intake Visit Reasons: OV- Left leg osteoarthritis Intake Note: eCli is a 69 year old female who presents today in a wheelchair for follow up of her bilateral knee osteoarthritis. She was given bilateral knee cortisone injections at her last visit, 08/22/23. Patient states these did not really help her. She states her left knee, primarily, has been worsening. She is taking Ibuprofen with some relief. She wishes to discuss further options. Patient is not interested on a cortisone injection today. Allergies alprazolam (From XANAX) Allergy (Unknown, Verified 02/17/25 13:37) drowsiness risperidone (From RISPERDAL) Allergy (Unknown, Verified 02/17/25 13:37) drowsiness tramadol (From ULTRAM) Allergy (Unknown, Verified 02/17/25 13:37) n/v HPI HPI OV- Left leg osteoarthritis: Details: Ms. Munoz is a 69-year-old female who presents to the office today for left knee osteoarthritis. Patient is wheelchair-bound at baseline. When asking the patient why she is wheelchair-bound she reports that she had a right hip replacement and had significant pain after surgery leading to her decrease in ambulation and eventually wheelchair bound. Patient has past medical history significant for COPD oxygen dependent, insulin-dependent diabetes (most recent A1c 05/25/2024 at 5.9), polyneuropathy due to diabetes, venous stasis bilateral lower extremity, obesity (BMI: 38.0), chronic pain syndrome, hyperlipidemia, and lumbosacral radiculitis. While in the office today, the patient states that she was given bilateral knee cortisone injections on 08/22/2023. She reports that these injections did not offer her any relief. She reports that her left knee pain has been worsening. She takes ibuprofen with some relief. She is looking to discuss additional options that may be available to her. [facility] Medical History Peripheral edema PMB (postmenopausal bleeding) CHF (congestive heart failure) Rheumatoid arthritis Fibromyalgia Cellulitis Arthritis History of hepatitis C Asthma Type 2 diabetes mellitus with polyneuropathy Hyperlipidemia LDL goal <100 Morbid obesity due to excess calories BMI 40.0-44.9, adult Swelling of lower extremity Hypertension, essential History of opioid abuse Chronic GERD Lipid disorder COPD, severe Oxygen dependent Depression, major, 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 Mother No problems noted. Brother Diabetes Son No problems noted. Sister No problems noted. Sister No problems noted. Sister No problems noted. Daughter No problems noted. Daughter No problems noted. Social History Household Members: Spouse Housing: Apartment Alcohol intake: never Patient Tobacco Use Status: Former Tobacco user e-Cigarette/Vaping Use: Never Used Second Hand Smoke Exposure: Yes service: No Current occupational status: disabled Cognitive needs: Yes (wheelchair) Hearing needs: No Vision needs: No Female Reproductive History Menstrual Age of Menarche: 13 Review of Systems Const All systems reviewed & are unremarkable except as noted in HPI and below Physical Exam Vital Signs: BMI result Body Mass Index 38.0 Const General: cooperative, healthy appearing and no acute distress Resp Effort & Inspection: normal respiratory effort and able to speak in complete sentences Extrem Other: Left knee range of motion 20-90 degrees. Tenderness to palpation both medial and lateral joint line. Chronic venous stasis skin changes noted on bilateral lower extremities. Assessment & Plan Assessment & Plan (1) Osteoarthritis of left knee: Code(s): M17.12 - Unilateral primary osteoarthritis, left knee Category: Medical Qualifiers: Osteoarthritis type: unspecified Qualified Code(s): M17.12 - Unilateral primary osteoarthritis, left knee Plan Ms. Munoz is a 69-year-old female who presents to the office today for left knee osteoarthritis. Patient is wheelchair-bound at baseline. When asking the patient why she is wheelchair-bound she reports that she had a right hip replacement and had significant pain after surgery leading to her decrease in ambulation and eventually wheelchair bound. Patient has past medical history significant for COPD oxygen dependent, insulin-dependent diabetes (most recent A1c 05/25/2024 at 5.9), polyneuropathy due to diabetes, venous stasis bilateral lower extremity, obesity (BMI: 38.0), chronic pain syndrome, hyperlipidemia, and lumbosacral radiculitis. While in the office today, the patient states that she was given bilateral knee cortisone injections on 08/22/2023. She reports that these injections did not offer her any relief. She reports that her left knee pain has been worsening. She takes ibuprofen with some relief. She is looking to discuss additional options that may be available to her. While the office today, I discussed with the patient that she is not so not a candidate for total knee arthroplasty due to her multiple comorbidities. I discussed the role of gel injections as well as referral to pain management for the possibility of geniculate nerve blocks. Patient has elected to move forward with a referral to pain management. She will follow up with Orthoped[facility], sooner if needed. X-rays of the left knee which were obtained while in the office today and were reviewed by me, Angela Tuttle PA-C, revealed significant osteoarthritis. Orders: Orders XR knee LT 3V 02/17/25 M25.569 - Pain in unspecified knee Referrals Pain Management Referral M17.12 - Unilateral primary osteoarthritis, left knee Coding Level of Care Code Est Pt Level 3 (24511) Diagnoses Osteoarthritis of left knee, unspecified osteoarthritis type M17.12 Osteoarthritis type: unspecified
== END 2025-02-17 14:21 | disposition home or self-care (01) ==
PROVIDERS: PCP Internal Medicine; Visit Provider Physician Assistant
DX: M17.12 Unilateral primary osteoarthritis, left knee (principal)
CPT/HCPCS: 99213

== ENCOUNTER → 2025-02-17 13:17 | Outpatient (BNV) | payer OTHER, SELFPAY | PROVIDERS: Visit Provider Radiology Diagnostic Radiology | DX: M25.462 Effusion, left knee (principal) | CPT/HCPCS: 73562 ==

== ENCOUNTER 2025-03-18 14:23 | Outpatient (AMB) | payer OTHER, SELFPAY ==
--- NOTE | 2025-03-18 14:24 | A.OFFPC_ITS ---
Intake Visit Reasons: left eye sty/pain Allergies alprazolam (From XANAX) Allergy (Unknown, Verified 03/18/25 14:31) drowsiness risperidone (From RISPERDAL) Allergy (Unknown, Verified 03/18/25 14:31) drowsiness tramadol (From ULTRAM) Allergy (Unknown, Verified 03/18/25 14:31) n/v Medication List - Last Reconciled 03/18/25 by Dagmar Guthrie MD albuterol sulfate 90 mcg/actuation 2 puffs inhalation QID PRN alcohol swabs (Easy Touch Alcohol Prep Pads) topical; atorvastatin 40 mg PO DAILY 90 days blood sugar diagnostic (FreeStyle Lite Strips) 2x/day As directed blood-glucose meter (FreeStyle Lite Meter kit) Check blood sugar twice daily as directed buprenorphine-naloxone 8-2 mg 2 film sublingually BID; +.5 (total 2.5 film) at night buspirone 15 mg PO BID dapagliflozin propanediol 10 mg PO DAILY diaper,brief,adult,disposable (Depend Fit-Flex Underwear) Patient uses X-Large pull-ups 3 times per day as directed disposable gloves As directed-size large [disposable wipes As directed] duloxetine 60 mg PO DAILY duloxetine 30 mg PO QAM dupilumab (Dupixent) 200 mg subcut Q2W [Electric Wheelchair As directed] ferrous sulfate 324 mg PO BID 90 days kmdzqlwnxbp-lvzohhxyn-mxmjklau 200-62.5-25 mcg (Trelegy Ellipta) 1 ea inhalation DAILY gabapentin 600 mg PO TID 30 days glipizide 5 mg PO DAILY hydrochlorothiazide 25 mg PO DAILY incontinence pad, liner, disp As directed insulin glargine (Lantus Solostar U-100 Insulin) 10 units (0.1 mL) subcut QPM ipratropium-albuterol 0.5 mg-3 mg(2.5 mg base)/3 mL 3 mL inhalation TID lancets test blood sugar 3 times per day lanolin 1 appl topical DAILY lorazepam 1 mg PO TID PRN metformin 1,000 mg (2 x 500 mg) PO DAILY nitrofurantoin monohyd/m-cryst 100 mg (Macrobid) 100 mg PO Q12H 5 days Oxygen Home Use 3LPM continuous via NC [oxygen-portable concentrator As directed 3 liter flow, continuous use. ] pantoprazole 40 mg PO DAILY 90 days pen needle, diabetic (BD Ultra-Fine Tamia Pen Needle) As directed once daily semaglutide (Ozempic) 0.25 mg (0.368 mL) subcut QWEEK torsemide 20 mg PO DAILY triamcinolone acetonide 0.025% 1 appl topical BID walker As directed [wheelchair As directed] [wheelchair repair Left side of chair is broken] [Wheelchair with bilateral leg rest As directed NS] [X-Large pull up/adult diaper Change diaper 3 times a day or as needed for incontinence] Tobacco use date assessed: 01/07/25 Dental Screening Dental Screen Date: 01/07/25 HPI left eye sty/pain HPI Details - The patient is a 69-year-old female pr esenting today via telehealth complaining of pain swelling and itching in left eye present now for the last 4 days. She has started applying warm compresses to affected I just today, which resulted in some discharge from the eye. - The patient denies any allergies to an tibiotics. [facility] Medical History Peripheral edema PMB (postmenopausal bleeding) CHF (congestive heart failure) Rheumatoid arthritis Fibromyalgia Cellulitis Arthritis History of hepatitis C Asthma Type 2 diabetes mellitus with polyneuropathy Hyperlipidemia LDL goal <100 Morbid obesity due to excess calories BMI 40.0-44.9, adult Swelling of lower extremity Hypertension, essential History of opioid abuse Chronic GERD Lipid disorder COPD, severe Oxygen dependent Depression, major, 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 Mother No problems noted. Brother Diabetes Son No problems noted. Sister No problems noted. Sister No problems noted. Sister No problems noted. Daughter No problems noted. Daughter No problems noted. Social History Household Members: Spouse Housing: Apartment Alcohol intake: never Patient Tobacco Use Status: Former Tobacco user e-Cigarette/Vaping Use: Never Used Second Hand Smoke Exposure: Yes service: No Current occupational status: disabled Cognitive needs: Yes (wheelchair) Hearing needs: No Vision needs: No Female Reproductive History Menstrual Age of Menarche: 13 Questionnaire Thrive Questionnaire Date Thrive assessed: 09/03/24 WILIAM-7 AMB Questionnaire WILIAM-7 Date WILIAM - 7 assessed: 09/03/24 Source: Developed by Drs. Luis Lema, Jagruti Lovett, Rolando Romero and colleagues, with an educational tish from [employer]. Review of Systems Const All systems reviewed & are unremarkable except as noted in HPI and below Physical exam (Primary Care) Tobacco/Smoking Status: Tobacco use Status Tobacco use date assessed 01/07/25 03/18/25 14:24 Patient Tobacco Use Status Former Tobacco user 03/18/25 14:24 e-Cigarette/Vaping Use Never Used 03/18/25 14:24 Thrive Assessment: Date of Thrive Assessment Date Thrive assessed 09/03/24 03/18/25 14:24 Telehealth Telehealth Telehealth Platform: iOpener Location of provider rendering services: practice address Location of patient: address on file Patient Identification confirmed using: Name, : Yes Telehealth method: video Patient verbally consented to treatment: Yes Patient verbally consented to billing insurance company: Yes Patient informed of any privacy concerns related to visit: Yes Minutes spent on Phone/Video with Pt.: 15 Coding Level of Care Code Tele Est Pt Level 4 (77658) Diagnoses Hordeolum externum of left upper eyelid H00.014 Laterality: left Eyelid: upper Assessment & Plan Assessment & Plan (1) Hordeolum externum: Code(s): H00.019 - Hordeolum externum unspecified eye, unspecified eyelid Qualifiers: Laterality: left Eyelid: upper Qualified Code(s): H00.014 - Hordeolum externum left upper eyelid Plan: Apply warm compresses to the upper eyelid on left for 10 minutes 3 times per day, prescription sent for erythromycin topical ointment prescribed, apply to left upper eyelid twice a day for 5 days. Advised to see PCP if after 5 days no improvement of symptoms seen Medications: New erythromycin Apply to upper eyelid margin on left eye twice a day, avoid touching the tip of the due to any part of the eye to avoid contamination 0.5 inches ophthalmic (eye) BID 3.5 grams 0RF 5 days H00.019 - Hordeolum externum unspecified eye, unspecified eyelid
--- OUTSIDE RECORDS SUMMARY | 2025-03-18 14:26 | XMS_ITS | Clinical Summary ---
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
== END 2025-03-18 15:20 | disposition home or self-care (01) ==
LOC: HO.HMCC 14:23
PROVIDERS: PCP Internal Medicine; Visit Provider Internal Medicine
DX: H00.014 Hordeolum externum left upper eyelid (principal)

== ENCOUNTER 2025-04-06 12:53 | Outpatient (AMB) | payer OTHER, SELFPAY ==
--- NOTE | 2025-04-06 13:05 | MHC.PC.OV ---
Vital Signs 04/06/25 13:06 Height 5 ft 8 in BMI Reason not done Patient refused/unable BP 130/70 Blood Pressure Location Lt brachial Position Sitting Pulse 90 Pulse Source Pulse Oximeter Pulse Oximetry (%) 97 Intake Visit Reasons: DM followup Allergies alprazolam (From XANAX) Allergy (Unknown, Verified 04/06/25 13:10) drowsiness risperidone (From RISPERDAL) Allergy (Unknown, Verified 04/06/25 13:10) drowsiness tramadol (From ULTRAM) Allergy (Unknown, Verified 04/06/25 13:10) n/v Medication List - Last Reconciled 04/06/25 by Veronique Rivera MD albuterol sulfate 90 mcg/actuation 2 puffs inhalation QID PRN alcohol swabs (Easy Touch Alcohol Prep Pads) topical; atorvastatin 40 mg PO DAILY 90 days blood sugar diagnostic (FreeStyle Lite Strips) 2x/day As directed blood-glucose meter (FreeStyle Lite Meter kit) Check blood sugar twice daily as directed buprenorphine-naloxone 8-2 mg 2 film sublingually BID; +.5 (total 2.5 film) at night buspirone 15 mg PO BID dapagliflozin propanediol 10 mg PO DAILY diaper,brief,adult,disposable (Depend Fit-Flex Underwear) Patient uses X-Large pull-ups 3 times per day as directed disposable gloves As directed-size large [disposable wipes As directed] duloxetine 60 mg PO DAILY duloxetine 30 mg PO QAM dupilumab (Dupixent) 200 mg subcut Q2W [Electric Wheelchair As directed] erythromycin 0.5 inches ophthalmic (eye) BID 5 days ferrous sulfate 324 mg PO BID 90 days neulekbqqjn-bfoqorvkr-ydhihvxz 200-62.5-25 mcg (Trelegy Ellipta) 1 ea inhalation DAILY gabapentin 600 mg PO TID 30 days glipizide 5 mg PO DAILY hydrochlorothiazide 25 mg PO DAILY incontinence pad, liner, disp As directed insulin glargine (Lantus Solostar U-100 Insulin) 10 units (0.1 mL) subcut QPM ipratropium-albuterol 0.5 mg-3 mg(2.5 mg base)/3 mL 3 mL inhalation TID lancets test blood sugar 3 times per day lanolin 1 appl topical DAILY lorazepam 1 mg PO TID PRN metformin 1,000 mg (2 x 500 mg) PO DAILY nitrofurantoin monohyd/m-cryst 100 mg (Macrobid) 100 mg PO Q12H 5 days Oxygen Home Use 3LPM continuous via NC [oxygen-portable concentrator As directed 3 liter flow, continuous use. ] pantoprazole 40 mg PO DAILY 90 days pen needle, diabetic (BD Ultra-Fine Tamia Pen Needle) As directed once daily semaglutide (Ozempic) 0.25 mg (0.368 mL) subcut QWEEK torsemide 20 mg PO DAILY triamcinolone acetonide 0.025% 1 appl topical BID walker As directed [wheelchair As directed] [wheelchair repair Left side of chair is broken] [Wheelchair with bilateral leg rest As directed NS] [X-Large pull up/adult diaper Change diaper 3 times a day or as needed for incontinence] Tobacco use date assessed: 01/07/25 Fall risk assessment: No Falls in past year Last assessed Fall Risk: 04/06/25 Dental Screening Dental Screen Date: 01/07/25 HPI DM followup HPI Details History The patient is a 69-year-old female presenting with acute musculoskeletal pain, anemia, vitamin deficiency assessment, diabetes management, and wheelchair equipment needs. Acute Musculoskeletal Pain: - Pain reportedly started today and persists in the arm and knee. - Difficulty moving the arm due to pain, with an inability to reach for clothes. - Pain worsens with movement - located right flank area, worse with movement Anemia: - Previous anemia noted from prior lab results. - Current need to evaluate hemoglobin levels. Vitamin Deficiency: - Concerns about vitamin D and B12 deficiencies expressed. - Need for checking vitamin levels emphasized in context of overall health. Diabetes: - Previously managed with insulin, now managed with metformin. - Historical A1c of 6.0 indicating well-controlled diabetes. - Recently discontinued insulin after hospital visit, confirming diabetes managed on oral medications. Wheelchair Needs: - She was provided a wheelchair script in the past, but barriers persist in acquiring it. - Discussion of potential need for support or additional equipment for mobility. Medical History: - Chronic Obstructive Pulmonary Disease (COPD) - Asthma - Diabetes Mellitus - Depression - Anxiety - Lipid Disorder - Opioid Dependence (historically on Suboxone) - Chronic Lower Extremity Edema - GERD - Diabetic Neuropathy Medications: - Buspirone for anxiety - Duloxetine for depression - Atorvastatin for lipid disorder - Suboxone for opioid dependence - Dupixent for asthma and COPD - Iron supplement for anemia - Trulicity for diabetes - Ellipta inhaler for COPD - Gabapentin 600 mg three times daily for diabetic neuropathy - Glipizide 5 mg for diabetes management - Hydrochlorothiazide 25 mg for hypertension - Lorazepam 1 mg managed by psychiatry - Metformin 1 g daily for diabetes management - Oxygen therapy for respiratory support - Pantoprazole 40 mg for GERD - Ozempic for diabetes - Torsemide 20 mg for edema Social History: - Requires assistance with mobility and wheelchair use. - Issue acquiring wheelchair equipment successfully, impacting mobility status. Problem List - Acute Musculoskeletal Pain - Anemia - Suspected Vitamin D and B12 Deficiency - Diabetes Mellitus, type 2 - Polypharmacy - Mobility Equipment Requirement - urine incontinence patient wears diapers - chronic stasis dermatitis lower extremity - oxygen-dependent COPD - chronic pain syndrome - fibromyalgia Diagnostic results - Labs: Hemoglobin and vitamin levels to be reassessed for anemia and vitamin deficiency. - Tests and Diagnostics: Urine test suggested to rule out kidney involvement. Review of Systems General: No fever no chills neurological: No headaches no dizziness ear nose throat: No sore throat no hearing difficulty no ear pain cardiovascular: No syncope, no chest pain, no palpitations gastrointestinal: No nausea vomiting or diarrhea skin: No new complaints Physical Exam General: No acute distress elderly female sitting in a wheelchair HEENT: No acute findings Neck: Supple Respiratory system: Able to talk in full sentences, no audible wheeze Cardiovascular: S1-S2 regular in rate and rhythm Complaining of right flank pain tender all over due to fibromyalgia Gastrointestinal: No pain Extremities: Weakness in legs and arms, 4 x 4 both legs and arms chronic pain with palpation all over FISH CUTTER: Alert awake oriented x3 motor sensory intact, unable to get up from wheelchair without assistance Skin: Normal turgor [facility] Medical History Peripheral edema PMB (postmenopausal bleeding) CHF (congestive heart failure) Rheumatoid arthritis Fibromyalgia Cellulitis Arthritis History of hepatitis C Asthma Type 2 diabetes mellitus with polyneuropathy Hyperlipidemia LDL goal <100 Morbid obesity due to excess calories BMI 40.0-44.9, adult Swelling of lower extremity Hypertension, essential History of opioid abuse Chronic GERD Lipid disorder COPD, severe Oxygen dependent Depression, major, 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 Mother No problems noted. Brother Diabetes Son No problems noted. Sister No problems noted. Sister No problems noted. Sister No problems noted. Daughter No problems noted. Daughter No problems noted. Social History Household Members: Spouse Housing: Apartment Alcohol intake: never Patient Tobacco Use Status: Former Tobacco user e-Cigarette/Vaping Use: Never Used Second Hand Smoke Exposure: Yes service: No Current occupational status: disabled Cognitive needs: Yes (wheelchair) Hearing needs: No Vision needs: No Female Reproductive History Menstrual Age of Menarche: 13 Questionnaire PHQ-9 Over the last 2 weeks, how often have you been bothered by any of the following problems? 1. Little interest or pleasure in doing things: several days Source: Developed by Drs. Luis Lema, Rolando Singh and colleagues, with an educational tish from [employer]. Thrive Questionnaire Date Thrive assessed: 09/03/24 WILIAM-7 AMB Questionnaire WILIAM-7 Date WILIAM - 7 assessed: 09/03/24 Source: Developed by Drs. Luis Lema, Rolando Singh and colleagues, with an educational tish from [employer]. Physical exam (Primary Care) Vital Signs: Last Vital Signs Pulse 90 04/06/25 13:06 BP 130/70 04/06/25 13:06 Pulse Ox 97 04/06/25 13:06 Tobacco/Smoking Status: Tobacco use Status Tobacco use date assessed 01/07/25 04/06/25 13:11 Patient Tobacco Use Status Former Tobacco user 04/06/25 13:11 e-Cigarette/Vaping Use Never Used 04/06/25 13:11 Thrive Assessment: Date of Thrive Assessment Date Thrive assessed 09/03/24 04/06/25 13:11 Results AMB Hemoglobin A1c AMB Hemoglobin A1c 6.0 % Last Edit by Anupam lOmos CMA on 04/06/25 14:53 Results Reviewed Results Reviewed: Laboratory Last Values Hgb A1c (Clinic) 6.0 % (4.0-6.0) 04/06/25 14:50 Coding Level of Care Code Est Pt Level 5 (99985) Complex EM visit Add On G2211 Diagnoses COPD, severe J44.9 Type 2 diabetes mellitus with diabetic polyneuropathy, with long-term current use of insulin E11.42; Z79.4 Diabetes mellitus group home insulin use: with terminologist use Hypertension, essential I10 Lipid disorder E78.9 Venous stasis dermatitis I87.2 Recurrent major depressive disorder, in partial remission F33.41 Active/Remission status: in partial remission Morbid obesity due to excess calories E66.01 Chronic GERD K21.9 Microcytic anemia D50.9 Rheumatoid arthritis involving multiple sites, unspecified whether rheumatoid factor present M06.9 Rheumatoid arthritis location: multiple sites Rheumatoid factor presence: unspecified presence Oxygen dependent Z99.81 Difficulty walking R26.2 Wheelchair dependent Z99.3 Right flank pain R10.9 Fibromyalgia M79.7 Chronic pain syndrome G89.4 Time Spent (min) 41 Comment Complex patient, reviewing chart/labs/uhqi-cd-oevp/coordination of care Assessment & Plan Assessment & Plan (1) COPD, severe: Code(s): J44.9 - Chronic obstructive pulmonary disease, unspecified Category: Medical (2) Type 2 diabetes mellitus with diabetic polyneuropathy: Code(s): E11.42 - Type 2 diabetes mellitus with diabetic polyneuropathy Category: Medical Qualifiers: Diabetes mellitus terminologist insulin use: with terminologist use Qualified Code(s): E11.42 - Type 2 diabetes mellitus with diabetic polyneuropathy; Z79.4 - ocean transportation intermediary (current) use of insulin (3) Hypertension, essential: Code(s): I10 - Essential (primary) hypertension Category: Medical (4) Lipid disorder: Code(s): E78.9 - Disorder of lipoprotein metabolism, unspecified Category: Medical (5) Venous stasis dermatitis: Code(s): I87.2 - Venous insufficiency (chronic) (peripheral) Category: Medical (6) Depression, major, recurrent: Code(s): F33.9 - Major depressive disorder, recurrent, unspecified Category: Medical Qualifiers: Active/Remission status: in partial remission Qualified Code(s): F33.41 - Major depressive disorder, recurrent, in partial remission (7) Morbid obesity due to excess calories: Code(s): E66.01 - Morbid (severe) obesity due to excess calories Category: Medical (8) Chronic GERD: Code(s): K21.9 - Gastro-esophageal reflux disease without esophagitis Category: Medical (9) Microcytic anemia: Code(s): D50.9 - Iron deficiency anemia, unspecified Category: Medical (10) Rheumatoid arthritis: Code(s): M06.9 - Rheumatoid arthritis, unspecified Category: Medical Qualifiers: Rheumatoid arthritis location: multiple sites Rheumatoid factor presence: unspecified presence Qualified Code(s): M06.9 - Rheumatoid arthritis, unspecified (11) Oxygen dependent: Code(s): Z99.81 - Dependence on supplemental oxygen Category: Medical (12) Difficulty walking: Code(s): R26.2 - Difficulty in walking, not elsewhere classified Category: Medical (13) Wheelchair dependent: Code(s): Z99.3 - Dependence on wheelchair Category: Medical (14) Right flank pain: Code(s): R10.9 - Unspecified abdominal pain Category: Medical (15) Fibromyalgia: Code(s): M79.7 - Fibromyalgia Category: Medical (16) Chronic pain syndrome: Code(s): G89.4 - Chronic pain syndrome Category: Medical Plan History The patient is a 69-year-old female presenting with acute musculoskeletal pain, anemia, vitamin deficiency assessment, diabetes management, and wheelchair equipment needs. Acute Musculoskeletal Pain: - Pain reportedly started today and persists in the arm and knee. - Difficulty moving the arm due to pain, with an inability to reach for clothes. - Pain worsens with movement - located right flank area, worse with movement Anemia: - Previous anemia noted from prior lab results. - Current need to evaluate hemoglobin levels. Vitamin Deficiency: - Concerns about vitamin D and B12 deficiencies expressed. - Need for checking vitamin levels emphasized in context of overall health. Diabetes: - Previously managed with insulin, now managed with metformin. - Historical A1c of 6.0 indicating well-controlled diabetes. - Recently discontinued insulin after hospital visit, confirming diabetes managed on oral medications. Wheelchair Needs: - She was provided a wheelchair script in the past, but barriers persist in acquiring it. - Discussion of potential need for support or additional equipment for mobility. Medical History: - Chronic Obstructive Pulmonary Disease (COPD) - Asthma - Diabetes Mellitus - Depression - Anxiety - Lipid Disorder - Opioid Dependence (historically on Suboxone) - Chronic Lower Extremity Edema - GERD - Diabetic Neuropathy Medications: - Buspirone for anxiety - Duloxetine for depression - Atorvastatin for lipid disorder - Suboxone for opioid dependence - Dupixent for asthma and COPD - Iron supplement for anemia - Trulicity for diabetes - Ellipta inhaler for COPD - Gabapentin 600 mg three times daily for diabetic neuropathy - Glipizide 5 mg for diabetes management - Hydrochlorothiazide 25 mg for hypertension - Lorazepam 1 mg managed by psychiatry - Metformin 1 g daily for diabetes management - Oxygen therapy for respiratory support - Pantoprazole 40 mg for GERD - Ozempic for diabetes - Torsemide 20 mg for edema Social History: - Requires assistance with mobility and wheelchair use. - Issue acquiring wheelchair equipment successfully, impacting mobility status. Problem List - Acute Musculoskeletal Pain - Anemia - Suspected Vitamin D and B12 Deficiency - Diabetes Mellitus, type 2 - Polypharmacy - Mobility Equipment Requirement - urine incontinence patient wears diapers - chronic stasis dermatitis lower extremity - oxygen-dependent COPD - chronic pain syndrome - fibromyalgia Diagnostic results - Labs: Hemoglobin and vitamin levels to be reassessed for anemia and vitamin deficiency. - Tests and Diagnostics: Urine test suggested to rule out kidney involvement. Orders: Orders Comprehensive Met. Panel Today D50.9 - Iron deficiency anemia, unspecified, E11.42 - Type 2 diabetes mellitus with diabetic polyneuropathy, E66.01 - Morbid (severe) obesity due to excess calories, E78.9 - Disorder of lipoprotein metabolism, unspecified, F33.41 - Major depressive disorder, recurrent, in partial remission, I10 - Essential (primary) hypertension, I87.2 - Venous insufficiency (chronic) (peripheral), J44.9 - Chronic obstructive pulmonary disease, unspecified, K21.9 - Gastro-esophageal reflux disease without esophagitis, M06.9 - Rheumatoid arthritis, unspecified, R26.2 - Difficulty in walking, not elsewhere classified, Z79.4 - snf (current) use of insulin, Z99.3 - Dependence on wheelchair, Z99.81 - Dependence on supplemental oxygen Folate Today D50.9 - Iron deficiency anemia, unspecified, E11.42 - Type 2 diabetes mellitus with diabetic polyneuropathy, E66.01 - Morbid (severe) obesity due to excess calories, E78.9 - Disorder of lipoprotein metabolism, unspecified, F33.41 - Major depressive disorder, recurrent, in partial remission, I10 - Essential (primary) hypertension, I87.2 - Venous insufficiency (chronic) (peripheral), J44.9 - Chronic obstructive pulmonary disease, unspecified, K21.9 - Gastro-esophageal reflux disease without esophagitis, M06.9 - Rheumatoid arthritis, unspecified, R26.2 - Difficulty in walking, not elsewhere classified, Z79.4 - ocean transportation intermediary (current) use of insulin, Z99.3 - Dependence on wheelchair, Z99.81 - Dependence on supplemental oxygen LDL Cholesterol Direct Today D50.9 - Iron deficiency anemia, unspecified, E11.42 - Type 2 diabetes mellitus with diabetic polyneuropathy, E66.01 - Morbid (severe) obesity due to excess calories, E78.9 - Disorder of lipoprotein metabolism, unspecified, F33.41 - Major depressive disorder, recurrent, in partial remission, I10 - Essential (primary) hypertension, I87.2 - Venous insufficiency (chronic) (peripheral), J44.9 - Chronic obstructive pulmonary disease, unspecified, K21.9 - Gastro-esophageal reflux disease without esophagitis, M06.9 - Rheumatoid arthritis, unspecified, R26.2 - Difficulty in walking, not elsewhere classified, Z79.4 - ocean transportation intermediary (current) use of insulin, Z99.3 - Dependence on wheelchair, Z99.81 - Dependence on supplemental oxygen Vitamin D 25-OH (D2 and D3) Today D50.9 - Iron deficiency anemia, unspecified, E11.42 - Type 2 diabetes mellitus with diabetic polyneuropathy, E66.01 - Morbid (severe) obesity due to excess calories, E78.9 - Disorder of lipoprotein metabolism, unspecified, F33.41 - Major depressive disorder, recurrent, in partial remission, I10 - Essential (primary) hypertension, I87.2 - Venous insufficiency (chronic) (peripheral), J44.9 - Chronic obstructive pulmonary disease, unspecified, K21.9 - Gastro-esophageal reflux disease without esophagitis, M06.9 - Rheumatoid arthritis, unspecified, R26.2 - Difficulty in walking, not elsewhere classified, Z79.4 - snf (current) use of insulin, Z99.3 - Dependence on wheelchair, Z99.81 - Dependence on supplemental oxygen AMB Hemoglobin A1c Today Z13.9 - Encounter for screening, unspecified Hemoglobin A1c Today D50.9 - Iron deficiency anemia, unspecified, E11.42 - Type 2 diabetes mellitus with diabetic polyneuropathy, E66.01 - Morbid (severe) obesity due to excess calories, E78.9 - Disorder of lipoprotein metabolism, unspecified, F33.41 - Major depressive disorder, recurrent, in partial remission, I10 - Essential (primary) hypertension, I87.2 - Venous insufficiency (chronic) (peripheral), J44.9 - Chronic obstructive pulmonary disease, unspecified, K21.9 - Gastro-esophageal reflux disease without esophagitis, M06.9 - Rheumatoid arthritis, unspecified, R26.2 - Difficulty in walking, not elsewhere classified, Z79.4 - snf (current) use of insulin, Z99.3 - Dependence on wheelchair, Z99.81 - Dependence on supplemental oxygen Complete Blood Count Auto Diff Today D50.9 - Iron deficiency anemia, unspecified, E11.42 - Type 2 diabetes mellitus with diabetic polyneuropathy, E66.01 - Morbid (severe) obesity due to excess calories, E78.9 - Disorder of lipoprotein metabolism, unspecified, F33.41 - Major depressive disorder, recurrent, in partial remission, I10 - Essential (primary) hypertension, I87.2 - Venous insufficiency (chronic) (peripheral), J44.9 - Chronic obstructive pulmonary disease, unspecified, K21.9 - Gastro-esophageal reflux disease without esophagitis, M06.9 - Rheumatoid arthritis, unspecified, R26.2 - Difficulty in walking, not elsewhere classified, Z79.4 - ocean transportation intermediary (current) use of insulin, Z99.3 - Dependence on wheelchair, Z99.81 - Dependence on supplemental oxygen Ferritin Today D50.9 - Iron deficiency anemia, unspecified, E11.42 - Type 2 diabetes mellitus with diabetic polyneuropathy, E66.01 - Morbid (severe) obesity due to excess calories, E78.9 - Disorder of lipoprotein metabolism, unspecified, F33.41 - Major depressive disorder, recurrent, in partial remission, I10 - Essential (primary) hypertension, I87.2 - Venous insufficiency (chronic) (peripheral), J44.9 - Chronic obstructive pulmonary disease, unspecified, K21.9 - Gastro-esophageal reflux disease without esophagitis, M06.9 - Rheumatoid arthritis, unspecified, R26.2 - Difficulty in walking, not elsewhere classified, Z79.4 - snf (current) use of insulin, Z99.3 - Dependence on wheelchair, Z99.81 - Dependence on supplemental oxygen Microalbumin, Random (w Creat) Today D50.9 - Iron deficiency anemia, unspecified, E11.42 - Type 2 diabetes mellitus with diabetic polyneuropathy, E66.01 - Morbid (severe) obesity due to excess calories, E78.9 - Disorder of lipoprotein metabolism, unspecified, F33.41 - Major depressive disorder, recurrent, in partial remission, I10 - Essential (primary) hypertension, I87.2 - Venous insufficiency (chronic) (peripheral), J44.9 - Chronic obstructive pulmonary disease, unspecified, K21.9 - Gastro-esophageal reflux disease without esophagitis, M06.9 - Rheumatoid arthritis, unspecified, R26.2 - Difficulty in walking, not elsewhere classified, Z79.4 - ocean transportation intermediary (current) use of insulin, Z99.3 - Dependence on wheelchair, Z99.81 - Dependence on supplemental oxygen TSH reflex Free T4 Today D50.9 - Iron deficiency anemia, unspecified, E11.42 - Type 2 diabetes mellitus with diabetic polyneuropathy, E66.01 - Morbid (severe) obesity due to excess calories, E78.9 - Disorder of lipoprotein metabolism, unspecified, F33.41 - Major depressive disorder, recurrent, in partial remission, I10 - Essential (primary) hypertension, I87.2 - Venous insufficiency (chronic) (peripheral), J44.9 - Chronic obstructive pulmonary disease, unspecified, K21.9 - Gastro-esophageal reflux disease without esophagitis, M06.9 - Rheumatoid arthritis, unspecified, R26.2 - Difficulty in walking, not elsewhere classified, Z79.4 - ocean transportation intermediary (current) use of insulin, Z99.3 - Dependence on wheelchair, Z99.81 - Dependence on supplemental oxygen Vitamin B12 Today D50.9 - Iron deficiency anemia, unspecified, E11.42 - Type 2 diabetes mellitus with diabetic polyneuropathy, E66.01 - Morbid (severe) obesity due to excess calories, E78.9 - Disorder of lipoprotein metabolism, unspecified, F33.41 - Major depressive disorder, recurrent, in partial remission, I10 - Essential (primary) hypertension, I87.2 - Venous insufficiency (chronic) (peripheral), J44.9 - Chronic obstructive pulmonary disease, unspecified, K21.9 - Gastro-esophageal reflux disease without esophagitis, M06.9 - Rheumatoid arthritis, unspecified, R26.2 - Difficulty in walking, not elsewhere classified, Z79.4 - ocean transportation intermediary (current) use of insulin, Z99.3 - Dependence on wheelchair, Z99.81 - Dependence on supplemental oxygen UA CC w/rflx Micro + Cult Today E11.42 - Type 2 diabetes mellitus with diabetic polyneuropathy, Z79.4 - snf (current) use of insulin Medications: New baclofen 20 mg PO BEDTIME 90 tabs 0RF Discontinued insulin glargine (Lantus Solostar U-100 Insulin) Discontinued Reason: Doctor's Order 10 units (0.1 mL) subcut QPM 15 mL 4RF E11.42 - Type 2 diabetes mellitus with diabetic polyneuropathy
[2025-04-06 13:06] VITALS: BP 130/70; PULSE 90; O2SAT 97
--- OUTSIDE RECORDS SUMMARY | 2025-04-06 15:54 | XMS_ITS | Clinical Summary ---
Author Organization [facility] Address [address] [facility] [address] [place] [address] Phone Care Team Providers [place] Name Role Phone Unavailable Primary Care Provider [...] 100 UNIT/ML injection 1 Active Ultracare Pen Venus 32G X 4 MM [facility] [place] DIRECTED ONCE DAILY 1 Active ipratropium-alb uterol [...] of chronic obstructive pulmon khalida disease 08/22/2021 Cdxfy-cg-qibtvpr respiratory failure 08/22/2021 Anxiety 08/22/2021 Asthma 08/22/2021 [...] age to complete this topic Insurance ([id number]) [facility] ([id number])
== END 2025-04-06 13:30 | disposition home or self-care (01) ==
LOC: HO.HMCC 12:54
PROVIDERS: PCP Internal Medicine; Visit Provider Internal Medicine
DX: J44.9 Chronic obstructive pulmonary disease, unspecified (principal); E11.42 Type 2 diabetes mellitus with diabetic polyneuropathy; Z79.4 Long term (current) use of insulin; M06.9 Rheumatoid arthritis, unspecified; E66.01 Morbid (severe) obesity due to excess calories; I10 Essential (primary) hypertension; E78.9 Disorder of lipoprotein metabolism, unspecified; I87.2 Venous insufficiency (chronic) (peripheral); F33.41 Major depressive disorder, recurrent, in partial remission; K21.9 Gastro-esophageal reflux disease without esophagitis; D50.9 Iron deficiency anemia, unspecified

== ENCOUNTER 2025-04-06 12:53 | Outpatient (REF) | payer OTHER, SELFPAY ==
[2025-04-06 16:18] LABS: MANUAL DIFF FLAG NO
[2025-04-06 16:22] LABS: Appearance Urine Clear; Glucose Urine UA 500 mg/dL (Negative); PH 5.5 (5.0-9.0); Specific Gravity - Urine 1.015 (1.005-1.025)
[2025-04-06 16:30] LABS: Hematocrit 40.0 % (37.0-47.0); Hemoglobin 12.7 g/dl (12.0-16.0); Imm Gran Abs Auto 0.08 X10*3/uL (0.00-0.03); Imm Gran Pct Auto 0.7 % (0.0-0.4); Lymphocytes Absolute Auto 2.0 X10*3/uL (1.2-4.9); Mean Corpuscular HGB Conc 31.8 g/dl (31.0-35.0); Mean Corpuscular Hemoglobin 31.0 pg (27.0-33.0); Mean Corpuscular Volume 97.6 fL (80.0-98.0); NRBC Abs Auto 0.000 X10*3/uL (0.0-0.012); NRBC Pct Auto 0.0 /100WBC (0.0-0.2); Platelet Count 273 X10*3/uL (160-400); Red Blood Count 4.10 X10*6/uL (4.20-5.50); White Blood Count 11.5 X10*3/uL (4.8-10.8)
[2025-04-06 16:36] LABS: Hemoglobin A1C 136.7362 umol/L
[2025-04-06 16:59] LABS: Alanine Aminotransferase 16 U/L (0-31); Albumin Level 4.2 g/dL (3.5-5.0); Alkaline Phosphatase 78 U/L (39-117); Anion Gap 15 (12-20); Aspartate Amino Transferase 27 U/L (5-31); Blood Urea Nitrogen 19 mg/dL (9-16); Calcium 9.4 mg/dL (8.4-10.2); Carbon Dioxide 35 mmol/L (22-29); Chloride 99 mmol/L (96-108); Estimated Glomerular Filt Rate > 60; Potassium 4.6 mmol/L (3.3-5.1); Sodium 144 mmol/L (135-145); Total Protein 7.7 g/dL (6.5-8.0)
[2025-04-06 17:02] LABS: Ferritin 75 ng/mL (10-250)
[2025-04-06 17:28] LABS: Microalbum/Creatinine Ratio Ur 8.1 ug/mg cr (<30)
[2025-04-06 18:02] LABS: Folate 11.9 ng/mL (> or = 4.0); Vitamin B12 646 pg/mL (200-900)
[2025-04-10 15:08] LABS: Vitamin D 25-OH, D2 <4 ng/mL; Vitamin D 25-OH, D3 19 ng/mL; Vitamin D 25-OH, Total 19 ng/mL (30-100)
== END 2025-04-06 12:54 | disposition home or self-care (01) ==
LOC: HO.HMGCLDS 12:53
PROVIDERS: PCP Internal Medicine; Visit Provider Internal Medicine
DX: E11.42 Type 2 diabetes mellitus with diabetic polyneuropathy (principal); I10 Essential (primary) hypertension; E78.9 Disorder of lipoprotein metabolism, unspecified; I87.2 Venous insufficiency (chronic) (peripheral); F33.41 Major depressive disorder, recurrent, in partial remission; R10.9 Unspecified abdominal pain; M79.7 Fibromyalgia; G89.4 Chronic pain syndrome; E66.01 Morbid (severe) obesity due to excess calories; K21.9 Gastro-esophageal reflux disease without esophagitis; D50.9 Iron deficiency anemia, unspecified; M06.9 Rheumatoid arthritis, unspecified; J44.9 Chronic obstructive pulmonary disease, unspecified; R26.2 Difficulty in walking, not elsewhere classified; Z79.4 Long term (current) use of insulin; Z99.81 Dependence on supplemental oxygen; Z99.3 Dependence on wheelchair; Z79.899 Other long term (current) drug therapy; Z79.84 Long term (current) use of oral hypoglycemic drugs
CPT/HCPCS: 36415; 80053; 81003; 82043; 82306; 82570; 82607; 82728; 82746; 83036; 83721; 84443; 85025; 99212

== ENCOUNTER 2025-04-22 12:34 | Outpatient (AMB) | payer OTHER, SELFPAY ==
--- NOTE | 2025-04-22 12:37 | A.OFFVIS_ITS ---
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 Accompanied by: Spouse Allergies alprazolam (From XANAX) Allergy (Unknown, Verified 04/22/25 12:42) drowsiness risperidone (From RISPERDAL) Allergy (Unknown, Verified 04/22/25 12:42) drowsiness tramadol (From ULTRAM) Allergy (Unknown, Verified 04/22/25 12:42) n/v Medication List - Last Reconciled 04/22/25 by Varsha Latif LPN albuterol sulfate 90 mcg/actuation 2 puffs inhalation QID PRN alcohol swabs (Easy Touch Alcohol Prep Pads) topical; atorvastatin 40 mg PO DAILY 90 days baclofen 20 mg PO BEDTIME blood sugar diagnostic (FreeStyle Lite Strips) 2x/day As directed blood-glucose meter (FreeStyle Lite Meter kit) Check blood sugar twice daily as directed buprenorphine-naloxone 8-2 mg 2 film sublingually BID; +.5 (total 2.5 film) at night buspirone 15 mg PO BID dapagliflozin propanediol 10 mg PO DAILY diaper,brief,adult,disposable (Depend Fit-Flex Underwear) Patient uses X-Large pull-ups 3 times per day as directed disposable gloves As directed-size large [disposable wipes As directed] duloxetine 60 mg PO DAILY duloxetine 30 mg PO QAM dupilumab (Dupixent) 200 mg subcut Q2W [Electric Wheelchair As directed] ferrous sulfate 324 mg PO BID 90 days qzfettbhtxm-vlqmoggwc-oxliatic 200-62.5-25 mcg (Trelegy Ellipta) 1 ea inhalation DAILY gabapentin 600 mg PO TID 30 days glipizide 5 mg PO DAILY hydrochlorothiazide 25 mg PO DAILY incontinence pad, liner, disp As directed ipratropium-albuterol 0.5 mg-3 mg(2.5 mg base)/3 mL 3 mL inhalation TID lancets test blood sugar 3 times per day lanolin 1 appl topical DAILY lorazepam 1 mg PO TID PRN metformin 1,000 mg (2 x 500 mg) PO DAILY Oxygen Home Use 3LPM continuous via NC [oxygen-portable concentrator As directed 3 liter flow, continuous use. ] pantoprazole 40 mg PO DAILY 90 days pen needle, diabetic (BD Ultra-Fine Tamia Pen Needle) As directed once daily semaglutide (Ozempic) 0.25 mg (0.368 mL) subcut QWEEK torsemide 20 mg PO DAILY triamcinolone acetonide 0.025% 1 appl topical BID walker As directed [wheelchair As directed] [wheelchair repair Left side of chair is broken] [Wheelchair with bilateral leg rest As directed NS] [X-Large pull up/adult diaper Change diaper 3 times a day or as needed for incontinence] HPI HPI Unilateral primary osteoarthritis, left knee: Details: History of Present Illness The patient is a 69-year-old female presenting with knee pain due to osteoarthritis. She reports that the right knee is the most bothersome, and she has a history of receiving cortisone injections in her knees and shoulders, which have not provided significant relief. The patient has been informed that she is not a candidate for knee replacement surgery due to other medical conditions, including diabetes mellitus. The patient has also been diagnosed with cellulitis, which was mentioned during the consultation. She has a history of diabetes mellitus, which complicates her treatment options, particularly concerning the use of cortisone injections. Pain Description - Onset: Chronic knee pain primarily in the right knee. - Quality: Persistent pain not relieved by previous cortisone injections. - Exacerbating factors: Not specified, but previous treatments have been ineffective. - Relieving factors: None identified, as cortisone injections were ineffective. Physical Exam - Appears afebrile. - Alert and oriented. - Mood and affect appropriate. - Follows and participates in conversation appropriately. Pain Management - Affect: The patient expresses a desire for pain relief and improved quality of life. - Analgesia: Previous cortisone injections were ineffective; considering gel injections. - Adverse Effects: Concern about cortisone worsening diabetes. - Activities of Daily Living: Pain impacts daily activities, and the patient seeks improvement. - Aberrant Drug Related Behaviors: None reported. [facility] Medical History Peripheral edema PMB (postmenopausal bleeding) CHF (congestive heart failure) Rheumatoid arthritis Fibromyalgia Cellulitis Arthritis History of hepatitis C Asthma Type 2 diabetes mellitus with polyneuropathy Hyperlipidemia LDL goal <100 Morbid obesity due to excess calories BMI 40.0-44.9, adult Swelling of lower extremity Hypertension, essential History of opioid abuse Chronic GERD Lipid disorder COPD, severe Oxygen dependent Depression, major, 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 Mother No problems noted. Brother Diabetes Son No problems noted. Sister No problems noted. Sister No problems noted. Sister No problems noted. Daughter No problems noted. Daughter No problems noted. Social History Household Members: Spouse Housing: Apartment Alcohol intake: never Patient Tobacco Use Status: Former Tobacco user e-Cigarette/Vaping Use: Never Used Second Hand Smoke Exposure: Yes service: No Current occupational status: disabled Cognitive needs: Yes (wheelchair) Hearing needs: No Vision needs: No Female Reproductive History Menstrual Age of Menarche: 13 Physical Exam Vital Signs: Last Vital Signs Pulse 88 04/22/25 12:38 Resp 16 04/22/25 12:38 BP 140/82 H 04/22/25 12:38 Pulse Ox 89 L 04/22/25 12:38 Oxygen Delivery Method Nasal Cannula 04/22/25 12:38 BMI result Body Mass Index 39.5 Assessment & Plan Assessment & Plan (1) Degenerative arthritis of knee, bilateral: Code(s): M17.0 - Bilateral primary osteoarthritis of knee Category: Medical Plan Plan Patient was informed and verbally consented to the use of an ambient scribe for clinic note documentation during this visit. 1. Osteoarthritis Of The Knee - Plan to request insurance authorization for gel injections to manage knee pain with Synvisc One. - Cortisone injections are not preferred due to diabetes complications. 2. Cellulitis - No specific management plan discussed during the visit. 3. Diabetes Mellitus - Diabetes management is a consideration in the treatment plan for knee pain. Discussion Notes During the consultation, we discussed the patient's knee pain management options, including the ineffectiveness of previous cortisone injections and the potential for gel injections. We also addressed the impact of diabetes on treatment choices, particularly avoiding further cortisone due to its potential to worsen diabetes. The patient was informed about the need for insurance authorization for gel injections and the procedure being performed under x-ray guidance. Patient Instructions - Await insurance authorization for gel injections. - Monitor blood sugar levels closely due to diabetes. - Follow up with the clinic if there are any changes in symptoms or concerns. Coding Level of Care Code New Pt Level 4 (80975) Diagnoses Degenerative arthritis of knee, bilateral M17.0
[2025-04-22 12:38] VITALS: BP 140/82; PULSE 88; RESP 16; O2SAT 89; BMI 39.5
--- OUTSIDE RECORDS SUMMARY | 2025-04-22 14:05 | XMS_ITS | Clinical Summary ---
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 Name Role Phone Unavailable Primary Care Provider [...] 100 UNIT/ML injection 1 Active Ultracare Pen Temple 32G X 4 MM [facility] [place] DIRECTED ONCE DAILY 1 [...] of chronic obstructive pulmon khalida disease 08/22/2021 Isfle-ps-enyvvos respiratory failure 08/22/2021 Anxiety 08/22/2021 Asthma 08/22/2021 [...] Obstructive sleep apnea syndrome 08/22/2021 Osteoporosis 08/22/2021 Post-traumatic stress disorder 08/22/2021 Respiratory failure 08/22/2021 Severe obesity 08/22/2021 Substance abuse 08/22/2021 Swelling of lower limb 08/22/2021 Tobacco use disorder 08/22/2021 Viral hepatitis C 08/22/2021 Nonspecific tuberculin [...] patient's age to complete this topic Insurance * Guarantor: Celi Munoz Account Type Relation to Patient Date of Phone Billing Address Personal/Family Self 1955 [address] ([id number]) [place] [phone] [facility] ([id number])
== END 2025-04-22 13:08 | disposition home or self-care (01) ==
PROVIDERS: PCP Internal Medicine; Visit Provider Internal Medicine
DX: M17.0 Bilateral primary osteoarthritis of knee (principal)
CPT/HCPCS: 99213

== ENCOUNTER → 2025-04-22 12:34 | Outpatient (BNVA) | payer OTHER, SELFPAY | PROVIDERS: PCP Internal Medicine; Visit Provider Internal Medicine | DX: M17.0 Bilateral primary osteoarthritis of knee (principal) | CPT/HCPCS: 99212 ==

== ENCOUNTER 2025-05-06 12:55 | Outpatient (AMB) | payer OTHER, MEDICAID, SELFPAY ==
[2025-05-06 12:57] VITALS: BP 122/80; PULSE 87; O2SAT 93; BMI 37.4
--- NOTE | 2025-05-06 12:57 | A.OFFPC_ITS ---
Vital Signs 05/06/25 12:57 Height 5 ft 8 in Weight 246 lb BMI 37.4 BP 122/80 Blood Pressure Location Lt brachial Position Sitting Pulse 87 Pulse Oximetry (%) 93 Oxygen Delivery Method Nasal Cannula Intake Visit Reasons: hand tremors Allergies alprazolam (From XANAX) Allergy (Unknown, Verified 05/06/25 13:01) drowsiness risperidone (From RISPERDAL) Allergy (Unknown, Verified 05/06/25 13:01) drowsiness tramadol (From ULTRAM) Allergy (Unknown, Verified 05/06/25 13:01) n/v Medication List - Last Reconciled 05/06/25 by Veronique Rivera MD albuterol sulfate 90 mcg/actuation 2 puffs inhalation QID PRN alcohol swabs (Easy Touch Alcohol Prep Pads) topical; atorvastatin 40 mg PO DAILY 90 days baclofen 20 mg PO BEDTIME blood sugar diagnostic (FreeStyle Lite Strips) 2x/day As directed blood-glucose meter (FreeStyle Lite Meter kit) Check blood sugar twice daily as directed buprenorphine-naloxone 8-2 mg 2 film sublingually BID; +.5 (total 2.5 film) at night buspirone 15 mg PO BID dapagliflozin propanediol 10 mg PO DAILY diaper,brief,adult,disposable (Depend Fit-Flex Underwear) Patient uses X-Large pull-ups 3 times per day as directed disposable gloves As directed-size large [disposable wipes As directed] duloxetine 60 mg PO DAILY duloxetine 30 mg PO QAM dupilumab (Dupixent) 200 mg subcut Q2W [Electric Wheelchair As directed] ferrous sulfate 324 mg PO BID 90 days agreqflziam-pylzrvwjp-rocncyeu 200-62.5-25 mcg (Trelegy Ellipta) 1 ea inhalation DAILY gabapentin 600 mg PO DAILY glipizide 5 mg PO DAILY hydrochlorothiazide 25 mg PO DAILY incontinence pad, liner, disp As directed ipratropium-albuterol 0.5 mg-3 mg(2.5 mg base)/3 mL 3 mL inhalation TID lancets test blood sugar 3 times per day lanolin 1 appl topical DAILY lorazepam 1 mg PO TID PRN metformin 1,000 mg (2 x 500 mg) PO DAILY Oxygen Home Use 3LPM continuous via NC [oxygen-portable concentrator As directed 3 liter flow, continuous use. ] pantoprazole 40 mg PO DAILY 90 days pen needle, diabetic (BD Ultra-Fine Tamia Pen Needle) As directed once daily primidone 50 mg PO BEDTIME semaglutide (Ozempic) 0.25 mg (0.368 mL) subcut QWEEK torsemide 20 mg PO DAILY triamcinolone acetonide 0.025% 1 appl topical BID walker As directed [wheelchair As directed] [wheelchair repair Left side of chair is broken] [Wheelchair with bilateral leg rest As directed NS] [X-Large pull up/adult diaper Change diaper 3 times a day or as needed for incontinence] Tobacco use date assessed: 01/07/25 Fall risk assessment: No Falls in past year Last assessed Fall Risk: 05/06/25 Dental Screening Dental Screen Date: 01/07/25 HPI hand tremors HPI Details History of Present Illness The patient is a 69-year-old female presenting with tremors and urinary issues. Tremors: - The patient reports experiencing tremo rs, which affect her hands, particularly when using them. - The tremors were discussed as essenti al tremors, Urinary Incontinence: - The patient reports frequent urination and the need to wear diapers all day due to urinary incontinence. - She spends a significant amount of bridgett e in the bathroom. - No assessment from a urologist or urog ynecologist had been completed prior to this visit. - The patient expressed a desire for lindsay ething to help with the frequent urination. Problem List - Essential Tremor - Urinary Incontinence Plan - Prescribed medication to address essen tial tremors, primidone 50 mg - Initiated a referral to a urogynecolog ist for further evaluation of urinary incontinence due to the significant impact on the patient's quality of life, and a contact number was provided for follow-up. - gabapentin discontinued, patient says that she feels no difference taking out not taking it Review of Systems - General: No fever no chills - Neurological: No headaches no dizziness - Ear nose throat: No sore throat no hearing difficulty no ear pain - Cardiovascular: No syncope, no chest pain, no palpitations - Gastrointestinal: No nausea vomiting or diarrhea Physical Exam General: No acute distress sitting in wheelchair comfortable HEENT: No acute findings Neck: Supple Respiratory system: Able to talk in full sentences, no audible wheeze Cardiovascular: S1-S2 regular in rate and rhythm Gastrointestinal: No pain Extremities: No new findings 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 awake oriented x3 motor intact, having essential tremors both hands Skin: Normal turgor [facility] Medical History Peripheral edema PMB (postmenopausal bleeding) CHF (congestive heart failure) Rheumatoid arthritis Fibromyalgia Cellulitis Arthritis History of hepatitis C Asthma Type 2 diabetes mellitus with polyneuropathy Hyperlipidemia LDL goal <100 Morbid obesity due to excess calories BMI 40.0-44.9, adult Swelling of lower extremity Hypertension, essential History of opioid abuse Chronic GERD Lipid disorder COPD, severe Oxygen dependent Depression, major, 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 Mother No problems noted. Brother Diabetes Son No problems noted. Sister No problems noted. Sister No problems noted. Sister No problems noted. Daughter No problems noted. Daughter No problems noted. Social History Household Members: Spouse Housing: Apartment Alcohol intake: never Patient Tobacco Use Status: Former Tobacco user e-Cigarette/Vaping Use: Never Used Second Hand Smoke Exposure: Yes service: No Current occupational status: disabled Cognitive needs: Yes (wheelchair) Hearing needs: No Vision needs: No Female Reproductive History Menstrual Age of Menarche: 13 Questionnaire PHQ-9 Over the last 2 weeks, how often have you been bothered by any of the following problems? 1. Little interest or pleasure in doing things: not at all 2. Feeling down, depressed, or hopeless: not at all 3. Trouble falling or staying asleep, or sleeping too much: several days 4. Feeling tired or having little energy: several days 5. Poor appetite or overeating: not at all 6. Feeling bad about yourself - or that you are a failure or have let yourself or your family down: not at all 7. Trouble concentrating on things, such as reading the newspaper or watching television: not at all 8. Moving or speaking so slowly that other people could have noticed. Or the opposite - being so fidgety or restless that you have been moving around a lot more than usual: not at all 9. Thoughts that you would be better off or of hurting yourself in some way: not at all Total score: 2 Depression Screening Interpretation: Negative Depression Screening Done: Yes 27778 - PHQ-9 Billing: Yes Source: Developed by Drs. Luis Lema, Jagruti Lovett, Rolando Romero and colleagues, with an educational tish from [employer]. Thrive Questionnaire Date Thrive assessed: 09/03/24 AUDIT C Alcohol Use Questionnaire (AUDIT-C) 1. How often do you have a drink containing alcohol?: Never 3. How often do you have six or more drinks on one occasion?: Never Total Score: 0 Score Reviewed/Action Taken: Yes WILIAM-7 AMB Questionnaire WILIAM-7 Date WILIAM - 7 assessed: 09/03/24 Source: Developed by Drs. Luis Lema, Jgaruti Lovett, Rolando Romero and colleagues, with an educational tish from [employer]. Physical exam (Primary Care) Vital Signs: Last Vital Signs Pulse 87 05/06/25 12:57 BP 122/80 05/06/25 12:57 Pulse Ox 93 05/06/25 12:57 Oxygen Delivery Method Nasal Cannula 05/06/25 12:57 BMI result Body Mass Index 37.4 Tobacco/Smoking Status: Tobacco use Status Tobacco use date assessed 01/07/25 05/06/25 12:57 Patient Tobacco Use Status Former Tobacco user 05/06/25 12:57 e-Cigarette/Vaping Use Never Used 05/06/25 12:57 PHQ-9: PHQ-9 Score PHQ-9: Total score 2 05/06/25 13:25 Depression Screening Interpretation: Negative Thrive Assessment: Date of Thrive Assessment Date Thrive assessed 09/03/24 05/06/25 12:57 Coding Level of Care Code Est Pt Level 3 (11635) Diagnoses Stress incontinence of urine N39.3 Urinary Incontinence type: stress incontinence Essential palatal tremor G25.0 Additional Codes PHQ-9 - 48042 - PHQ-9 Billing: Yes ([id number]) Assessment & Plan Assessment & Plan (1) Urine incontinence: Code(s): R32 - Unspecified urinary incontinence Category: Medical Qualifiers: Urinary Incontinence type: stress incontinence Qualified Code(s): N39.3 - Stress incontinence (female) (male) (2) Essential palatal tremor: Code(s): G25.0 - Essential tremor Category: Medical Plan History of Present Illness The patient is a 69-year-old female presenting with tremors and urinary issues. Tremors: - The patient reports experiencing tremors, which affect her hands, particularly when using them. - The tremors were discussed as essential tremors, Urinary Incontinence: - The patient reports frequent urination and the need to wear diapers all day due to urinary incontinence. - She spends a significant amount of time in the bathroom. - No assessment from a urologist or urogynecologist had been completed prior to this visit. - The patient expressed a desire for something to help with the frequent urination. Problem List - Essential Tremor - Urinary Incontinence Plan - Prescribed medication to address essential tremors, primidone 50 mg - Initiated a referral to a urogynecologist for further evaluation of urinary incontinence due to the significant impact on the patient's quality of life, and a contact number was provided for follow-up. - gabapentin discontinued, patient says that she feels no difference taking out not taking it Orders: Referrals Urogynecology Referral N39.3 - Stress incontinence (female) (male) Medications: New primidone 50 mg PO BEDTIME 30 tabs 2RF tremor
== END 2025-05-06 13:18 | disposition home or self-care (01) ==
PROVIDERS: PCP Internal Medicine; Visit Provider Internal Medicine
DX: N39.3 Stress incontinence (female) (male) (principal); G25.0 Essential tremor

== ENCOUNTER → 2025-05-06 12:55 | Outpatient (BNVA) | payer OTHER, SELFPAY | PROVIDERS: PCP Internal Medicine; Visit Provider Internal Medicine | DX: N39.3 Stress incontinence (female) (male) (principal); G25.0 Essential tremor; Z13.31 Encounter for screening for depression | CPT/HCPCS: 96127; 99212 ==

== ENCOUNTER 2025-07-06 13:31 | Outpatient (AMB) | payer OTHER, MEDICAID, SELFPAY ==
[2025-07-06 13:32] VITALS: BP 130/78; PULSE 89; O2SAT 90
--- NOTE | 2025-07-06 13:32 | A.OFFPC_ITS ---
Vital Signs 07/06/25 13:32 Height 5 ft 8 in BMI Reason not done Patient refused/unable BP 130/78 Blood Pressure Location Lt brachial Position Sitting Pulse 89 Pulse Source Pulse Oximeter Pulse Oximetry (%) 90 L Intake Visit Reasons: 3 mo follow up Allergies alprazolam (From XANAX) Allergy (Unknown, Verified 07/06/25 13:32) drowsiness risperidone (From RISPERDAL) Allergy (Unknown, Verified 07/06/25 13:32) drowsiness tramadol (From ULTRAM) Allergy (Unknown, Verified 07/06/25 13:32) n/v Medication List - Last Reconciled 07/06/25 by Veornique Rivera MD albuterol sulfate 90 mcg/actuation 2 puffs inhalation QID PRN alcohol swabs (Easy Touch Alcohol Prep Pads) topical; atorvastatin 40 mg PO DAILY 90 days baclofen 20 mg PO BEDTIME blood sugar diagnostic (FreeStyle Lite Strips) 2x/day As directed blood-glucose meter (FreeStyle Lite Meter kit) Check blood sugar twice daily as directed buprenorphine-naloxone 8-2 mg 2 film sublingually BID; +.5 (total 2.5 film) at night buspirone 15 mg PO BID cholecalciferol (vitamin D3) 50 mcg PO DAILY commode Use As directed NS dapagliflozin propanediol 10 mg PO DAILY diaper,brief,adult,disposable (Depend Fit-Flex Underwear) Patient uses X-Large pull-ups 3 times per day as directed disposable gloves As directed-size large [disposable wipes As directed] duloxetine 60 mg PO DAILY duloxetine 30 mg PO QAM dupilumab (Dupixent) 200 mg subcut Q2W [Electric Wheelchair As directed] empty container (Sharps Container) use as directed ferrous sulfate 324 mg PO BID 90 days khxbxqrbxga-ucazmslyz-bhunenib 200-62.5-25 mcg (Trelegy Ellipta) 1 ea inhalation DAILY glipizide 5 mg PO DAILY hydrochlorothiazide 25 mg PO DAILY incontinence pad, liner, disp As directed ipratropium-albuterol 0.5 mg-3 mg(2.5 mg base)/3 mL 3 mL inhalation TID lancets test blood sugar 3 times per day lanolin 1 appl topical DAILY lorazepam 1 mg PO TID PRN metformin 1,000 mg (2 x 500 mg) PO DAILY Oxygen Home Use 3LPM continuous via NC [oxygen-portable concentrator As directed 3 liter flow, continuous use. ] pantoprazole 40 mg PO DAILY 90 days pen needle, diabetic (BD Ultra-Fine Tamia Pen Needle) As directed once daily primidone 50 mg PO BEDTIME [Re-usable bed pads As directed] semaglutide (Ozempic) 0.25 mg (0.368 mL) subcut QWEEK torsemide 20 mg PO DAILY triamcinolone acetonide 0.025% 1 appl topical BID walker As directed [wheelchair As directed] [wheelchair repair Left side of chair is broken] [Wheelchair with bilateral leg rest As directed NS] [X-Large pull up Change diaper 3 times a day or as needed for incontinence] Tobacco use date assessed: 01/07/25 Fall risk assessment: No Falls in past year Last assessed Fall Risk: 07/06/25 Dental Screening Dental Screen Date: 01/07/25 HPI 3 mo follow up HPI Details History of Present Illness The patient is a 69 year old female presenting for a follow-up visit to manage chronic conditions and address new concerns, including increased urinary frequency and equipment needs. Overactive Bladder: - The patient reports increased urinary frequency, or polyuria, which has been impacting her sleep, noting she has not slept for nine nights. - The patient has an upcoming urology ap pointment on July 18 to address this issue, for which she has been waiting for months. Type 2 Diabetes Mellitus: - The patient has a history of diabetes and monitors her blood glucose. Vitamin D Deficiency: - The patient is not currently taking vi tamin D, although it has been previously prescribed. Mobility Impairment: - The patient requires a wheelchair for mobility and is awaiting a commode to make toileting easier. - The [employer] equipment [employer], Joe Jang, has not delivered the commode and requires additional paperwork from the physician's office. - The patient has received a sharps cont ainer for her syringes. Generalized Anxiety Disorder: - The patient receives lorazepam from he r psychiatrist. Medical History: - Type 2 diabetes mellitus - Hypertension - Overactive bladder - Vitamin D deficiency - Generalized anxiety disorder [treatmen t thru Psych] . Social History: - Living Situation: The patient lives wi th one other person. - Functional Status: The patient uses a wheelchair for mobility. - Social Support: The patient is visited by her daughter, son, and cousins. Family History: - Sister: History of overactive bladder, which was treated with a bladder lift procedure. Diagnostic Results: - HbA1c today 5.8 mmol/L. Plan - A new prescription for Vitamin D has b een sent to the [facility] pharmacy. - The patient was instructed to take Vit ceja D daily. - we will call Joe and Suhail regarding the pending commode delivery. - The patient to continue monitoring blo od sugars for her diabetes. - The patient has an appointment with a urologist on July 18 to address her overactive bladder. - Follow up in three months. Review of Systems - General: No fever no chills - Neurological: No headaches no dizziness - Ear nose throat: No sore throat no hearing difficulty no ear pain - Cardiovascular: No syncope, no chest pain, no palpitations - Gastrointestinal: No nausea vomiting or diarrheae - Genitourinary: No dysuria , no blood in urine Physical Exam General: No acute distress sitting in wheelchair comfortable HEENT: No acute findings Neck: Supple Respiratory system: Able to talk in full sentences, no audible wheeze Cardiovascular: S1-S2 regular in rate and rhythm Gastrointestinal: No pain Extremities: No new findings 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 awake oriented x3 motor intact, having essential tremors both hands Skin: Normal turgor PFSH Medical History Peripheral edema PMB (postmenopausal bleeding) CHF (congestive heart failure) Rheumatoid arthritis Fibromyalgia Cellulitis Arthritis History of hepatitis C Asthma Type 2 diabetes mellitus with polyneuropathy Hyperlipidemia LDL goal <100 Morbid obesity due to excess calories BMI 40.0-44.9, adult Swelling of lower extremity Hypertension, essential History of opioid abuse Chronic GERD Lipid disorder COPD, severe Oxygen dependent Depression, major, 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 Mother No problems noted. Brother Diabetes Son No problems noted. Sister No problems noted. Sister No problems noted. Sister No problems noted. Daughter No problems noted. Daughter No problems noted. Social History Household Members: Spouse Housing: Apartment Alcohol intake: never Patient Tobacco Use Status: Former Tobacco user e-Cigarette/Vaping Use: Never Used Second Hand Smoke Exposure: Yes service: No Current occupational status: disabled Cognitive needs: Yes (wheelchair) Hearing needs: No Vision needs: No Female Reproductive History Menstrual Age of Menarche: 13 Questionnaire Thrive Questionnaire Date Thrive assessed: 09/03/24 WILIAM-7 AMB Questionnaire WILIAM-7 Date WILIAM - 7 assessed: 09/03/24 Source: Developed by Drs. Luis Lema, Jagruti Lovett, Rolando Romero and colleagues, with an educational tish from [employer]. Physical exam (Primary Care) Vital Signs: Last Vital Signs Pulse 89 07/06/25 13:32 BP 130/78 07/06/25 13:32 Pulse Ox 90 L 07/06/25 13:32 Tobacco/Smoking Status: Tobacco use Status Tobacco use date assessed 01/07/25 07/06/25 13:33 Patient Tobacco Use Status Former Tobacco user 07/06/25 13:33 e-Cigarette/Vaping Use Never Used 07/06/25 13:33 Thrive Assessment: Date of Thrive Assessment Date Thrive assessed 09/03/24 07/06/25 13:33 Results AMB Hemoglobin A1c AMB Hemoglobin A1c 5.8 % Last Edit by Anupam Olmos CMA on 07/06/25 13: 47 Results Reviewed Results Reviewed: Laboratory Last Values Hgb A1c (Clinic) 5.8 % (4.0-6.0) 07/06/25 13:46 Coding Level of Care Code Est Pt Level 4 (56345) Diagnoses Stress incontinence of urine N39.3 Urinary Incontinence type: stress incontinence COPD, severe J44.9 Type 2 diabetes mellitus with diabetic polyneuropathy, with long-term current use of insulin E11.42; Z79.4 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 insulin use: with middle or intermediate school principal use Oxygen dependent Z99.81 Wheelchair dependent Z99.3 Fibromyalgia M79.7 Chronic pain syndrome G89.4 Assessment & Plan Assessment & Plan (1) Urine incontinence: Code(s): R32 - Unspecified urinary incontinence Category: Medical Qualifiers: Urinary Incontinence type: stress incontinence Qualified Code(s): N39.3 - Stress incontinence (female) (male) (2) COPD, severe: Code(s): J44.9 - Chronic obstructive pulmonary disease, unspecified Category: Medical (3) Type 2 diabetes mellitus with diabetic polyneuropathy: Code(s): E11.42 - Type 2 diabetes mellitus with diabetic polyneuropathy Category: Medical Qualifiers: 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 insulin use: with middle or intermediate school principal use Qualified Code(s): E11.42 - Type 2 diabetes mellitus with diabetic polyneuropathy; Z79.4 - jail (current) use of insulin (4) Oxygen dependent: Code(s): Z99.81 - Dependence on supplemental oxygen Category: Medical (5) Wheelchair dependent: Code(s): Z99.3 - Dependence on wheelchair Category: Medical (6) Fibromyalgia: Code(s): M79.7 - Fibromyalgia Category: Medical (7) Chronic pain syndrome: Code(s): G89.4 - Chronic pain syndrome Category: Medical Plan Plan - A new prescription for Vitamin D has been sent to the [facility] pharmacy. - The patient was instructed to take Vitamin D daily. - we will call Jaylene regarding the pending commode delivery. - The patient to continue monitoring blood sugars for her diabetes. - The patient has an appointment with a urologist on July 18 to address her overactive bladder. - Follow up in three months. Orders: Orders AMB Hemoglobin A1c Today Z13.9 - Encounter for screening, unspecified Medications: New cholecalciferol (vitamin D3) 50 mcg PO DAILY 90 caps 3RF cholecalciferol (vitamin D3) 50 mcg PO DAILY 90 caps 3RF
--- OUTSIDE RECORDS SUMMARY | 2025-07-06 20:56 | XMS_ITS | Clinical Summary ---
Author Organization [facility] Address [address] [facility] [address] [place] [address] Phone Care Team Providers Care Manager Account Management Name Role Phone Unavailable Primary Care Provider [...] 100 UNIT/ML injection 1 Active Ultracare Pen [place] 32G X 4 MM [facility] [place]CE DAILY 1 Active ipratropium-alb uterol [...] of chronic obstructive pulmon khalida disease 08/22/2021 Eohwt-li-unvmlvl respiratory failure 08/22/2021 Anxiety 08/22/2021 Asthma 08/22/2021 [...] 08/22/2021 Respiratory failure 08/22/2021 Severe obesity 08/22/2021 Harmful pattern of substance use 08/22/2021 Swelling of lower limb 08/22/2021 Tobacco use disorder 08/22/2021 Viral hepatitis C 08/22/2021 Nonspecific tuberculin test reaction 06/13/2015 Delusions of parasitosis 10/25/2014 Blood chemistry outside reference range 04/12/20 [...] Phone Billing Address Personal/Family Self 1955 [address] ([id number]) [facility] ([id number])
== END 2025-07-06 13:50 | disposition home or self-care (01) ==
PROVIDERS: PCP Internal Medicine; Visit Provider Internal Medicine
DX: N39.3 Stress incontinence (female) (male) (principal); J44.9 Chronic obstructive pulmonary disease, unspecified; E11.42 Type 2 diabetes mellitus with diabetic polyneuropathy; Z79.4 Long term (current) use of insulin; Z99.81 Dependence on supplemental oxygen; Z99.3 Dependence on wheelchair; M79.7 Fibromyalgia; G89.4 Chronic pain syndrome; Z13.9 Encounter for screening, unspecified

== ENCOUNTER → 2025-07-06 13:31 | Outpatient (BNVA) | payer OTHER, SELFPAY | PROVIDERS: PCP Internal Medicine; Visit Provider Internal Medicine | DX: N39.3 Stress incontinence (female) (male) (principal); G89.4 Chronic pain syndrome; M79.7 Fibromyalgia; F41.9 Anxiety disorder, unspecified; E11.42 Type 2 diabetes mellitus with diabetic polyneuropathy; J44.9 Chronic obstructive pulmonary disease, unspecified; Z79.4 Long term (current) use of insulin; Z99.81 Dependence on supplemental oxygen; Z99.3 Dependence on wheelchair; E55.9 Vitamin D deficiency, unspecified | CPT/HCPCS: 83036; 99212 ==

== ENCOUNTER 2025-07-18 14:08 | Outpatient (AMB) | payer OTHER, SELFPAY ==
--- NOTE | 2025-07-18 14:09 | MHC.OFFVIS ---
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 Required: No Accompanied by: Spouse Allergies alprazolam (From XANAX) Allergy (Unknown, Verified 07/18/25 14:44) drowsiness risperidone (From RISPERDAL) Allergy (Unknown, Verified 07/18/25 14:44) drowsiness tramadol (From ULTRAM) Allergy (Unknown, Verified 07/18/25 14:44) n/v Medication List - Last Reconciled 07/18/25 by YESENIA Sun-BC albuterol sulfate 90 mcg/actuation 2 puffs inhalation QID PRN alcohol swabs (Easy Touch Alcohol Prep Pads) topical; atorvastatin 40 mg PO DAILY 90 days baclofen 20 mg PO BEDTIME blood sugar diagnostic (FreeStyle Lite Strips) 2x/day As directed blood-glucose meter (FreeStyle Lite Meter kit) Check blood sugar twice daily as directed buprenorphine-naloxone 8-2 mg 2 film sublingually BID; +.5 (total 2.5 film) at night buspirone 15 mg PO BID cholecalciferol (vitamin D3) 50 mcg PO DAILY commode Use As directed NS dapagliflozin propanediol 10 mg PO DAILY diaper,brief,adult,disposable (Depend Fit-Flex Underwear) Patient uses X-Large pull-ups 3 times per day as directed disposable gloves As directed-size large [disposable wipes As directed] duloxetine 60 mg PO DAILY duloxetine 30 mg PO QAM dupilumab (Dupixent) 200 mg subcut Q2W [Electric Wheelchair As directed] empty container (Sharps Container) use as directed ferrous sulfate 324 mg PO BID 90 days qgmaluwdvue-xnvslpwkh-mykiytgj 200-62.5-25 mcg (Trelegy Ellipta) 1 ea inhalation DAILY gabapentin 600 mg PO glipizide 5 mg PO DAILY hydrochlorothiazide 25 mg PO DAILY incontinence pad, liner, disp As directed ipratropium-albuterol 0.5 mg-3 mg(2.5 mg base)/3 mL 3 mL inhalation TID lancets test blood sugar 3 times per day lanolin 1 appl topical DAILY lorazepam 1 mg PO TID PRN metformin 1,000 mg (2 x 500 mg) PO DAILY Oxygen Home Use 3LPM continuous via NC [oxygen-portable concentrator As directed 3 liter flow, continuous use. ] pantoprazole 40 mg PO DAILY 90 days pen needle, diabetic (BD Ultra-Fine Tamia Pen Needle) As directed once daily primidone 50 mg PO BEDTIME [Re-usable bed pads As directed] tirzepatide (Mounjaro) 2.5 mg (0.5 mL) subcut QWEEK torsemide 20 mg PO DAILY triamcinolone acetonide 0.025% 1 appl topical BID walker As directed [wheelchair As directed] [wheelchair repair Left side of chair is broken] [Wheelchair with bilateral leg rest As directed NS] [X-Large pull up Change diaper 3 times a day or as needed for incontinence] HPI Comments Details: Celi is a pleasant 69-year-old female patient of Dr. Rivera who was accompanied by her significant other Nathan at today's office visit. She has a past medical history of peripheral edema, congestive heart failure, rheumatoid arthritis, fibromyalgia, arthritis, hep C, asthma, type 2 diabetes with polyneuropathy, hyperlipidemia, obesity, hypertension, chronic GERD, severe COPD, lipid disorder, O2 dependent, and depression. She presents to the office today as a patient for urinary frequency. In discussion with the patient today she reports over the last year she has been experiencing urinary frequency and nocturia. She reports she gets up anywhere between 3-4 times per night needing to urinate. In office urinalysis results reviewed with the patient today positive leukocytes positive nitrates and trace microscopic hematuria. We did discuss potential for urinary tract infection given urinalysis today. PVR 0 mL. We did discuss at length potential causes of lower urinary tract symptoms patient is experiencing as well as further treatment options and risks and benefits of these treatment options. We discussed obtaining retroperitoneal ultrasound for further assessment evaluation. We also discussed the importance of management and diabetes for improvement in urological health as well as overall health and well-being. We discussed importance of weight loss in relation to bladder health. She denies hematuria, dysuria, foul smelling urine, changes to urinary stream, flank pain, fever, and or chills. All questions were answered. She otherwise offers no other issues or concerns at this time. A1c 04/21 5.9% [facility] Medical History Peripheral edema PMB (postmenopausal bleeding) CHF (congestive heart failure) Rheumatoid arthritis Fibromyalgia Cellulitis Arthritis History of hepatitis C Asthma Type 2 diabetes mellitus with polyneuropathy Hyperlipidemia LDL goal <100 Morbid obesity due to excess calories BMI 40.0-44.9, adult Swelling of lower extremity Hypertension, essential History of opioid abuse Chronic GERD Lipid disorder COPD, severe Oxygen dependent Depression, major, 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 Mother No problems noted. Brother Diabetes Son No problems noted. Sister No problems noted. Sister No problems noted. Sister No problems noted. Daughter No problems noted. Daughter No problems noted. Social History Household Members: Spouse Housing: Apartment Alcohol intake: never Patient Tobacco Use Status: Former Tobacco user e-Cigarette/Vaping Use: Never Used Second Hand Smoke Exposure: Yes service: No Current occupational status: disabled Cognitive needs: Yes (wheelchair) Hearing needs: No Vision needs: No Female Reproductive History Menstrual Age of Menarche: 13 Review of Systems Const All systems reviewed & are unremarkable except as noted in HPI and below Physical Exam Const General: cooperative, comfortable, no acute distress, well developed, alert and awake Nutritional Appearance: obese Orientation/consciousness: patient oriented x3 Limitations: wheelchair and other limitations (O2 dependent via nasal cannula) HEENT Head: Yes normal to inspection, Yes normocephalic and Yes atraumatic Ears: hearing grossly normal bilaterally Eyes General: appearance normal, both eyes and all related structures Neck Neck: Yes normal visual inspection and Yes trachea midline Chest Chest palpation & inspection: normal inspection of the chest Resp Effort & Inspection: normal respiratory effort and able to speak in complete sentences Cardio Rate: regular rate GI Inspection: Yes normal to inspection General: Yes no CVA tenderness Back/Spine/Pelvis Back: no CVA tenderness Skin General skin exam: no rashes or lesions noted Neuro General: patient oriented x3 Extrem General: Yes normal to inspection Psych Appearance: grossly normal and well kempt Mental Status: mental status grossly normal Speech and movement: Normal speech and movement present and Clear speech present Affect: normal affect Attitude: cooperative Thought process: Normal thought process present Thought content: Normal thought content present Insight: Fair insight present (Psych) Judgement: Fair judgement present (Psych) Office Procedures Post Void Residual Post Residual Void Post Void Residual (PVR): 0 18613-Cacr Void Residual by ultrasound Results AMB Urinalysis, Automated UA Leukoctes 500 [place]/uL Last Edit by Kiki Colon, [facility] on 07/18/25 14:21 UA Nitrite Positive Last Edit by Kiki Colon, [facility] on 07/18/25 14:21 UA Urobilinogen 0.2 mg/dL Last Edit by Kiki Colon, [facility] on 07/18/25 14:21 UA Protein 0 mg/dL Last Edit by Kiki [place], [facility] on 07/18/25 14:21 UA pH 6.0 Last Edit by Kiki [place], [facility] on 07/18/25 14:21 UA Blood 10 [place]/uL Last Edit by Kiki [place], [facility] on 07/18/25 14:21 UA Specific [place] 1.015 Last Edit by Kiki Colon, [facility] on 07/18/25 14:21 UA Ketone Negative Last Edit by Kiki [place], [facility] on 07/18/25 14:21 UA Bilirubin 0 mg/dL Last Edit by Kiki Colon, [facility] on 07/18/25 14:21 UA Glucose 1000 mg/dL Last Edit by Kiki [place], [facility] on 07/18/25 14:21 Results Reviewed Results Reviewed: Laboratory Last Values Urine pH (Auto) 6.0 07/18/25 14:20 Specific [place] (Auto) 1.015 07/18/25 14:20 Urine Protein (Auto) 0 mg/dL 07/18/25 14:20 Glucose (UA)(Auto) 1000 mg/dL 07/18/25 14:20 Urine Ketones (Auto) Negative 07/18/25 14:20 Urine Blood (Auto) 10 [place]/uL 07/18/25 14:20 Urine Nitrite (Auto) Positive 07/18/25 14:20 Urine Bilirubin (Auto) 0 mg/dL 07/18/25 14:20 Urine Urobilinogen (Auto) 0.2 mg/dL 07/18/25 14:20 Leukocyte Esterase (Auto) 500 [place]/uL 07/18/25 14:20 Assessment & Plan Assessment & Plan (1) Frequency of urination: Code(s): R35.0 - Frequency of micturition Category: Medical (2) Increased frequency of urination: Code(s): R35.0 - Frequency of micturition Category: Medical (3) Nocturia: Code(s): R35.1 - Nocturia Category: Medical Plan In office urinalysis results reviewed with the patient today; will send for urine culture as well as urine cytology. We did discussed potential causes of lower urinary tract symptoms patient is experiencing as well as further treatment options and risks and benefits of these treatment options. Will obtain retroperitoneal ultrasound for further assessment evaluation. Start Bactrim as discussed and prescribed. Start VESIcare as discussed and prescribed. We did discussed the importance of management and diabetes for urological health as well as overall health and well-being. All questions were answered. We did discuss weight loss. Follow-up in 1-3 months with imaging and PVR; or sooner with any issues, concerns, and or questions. Orders: Orders US retroperitoneal comp Today R35.0 - Frequency of micturition Urine Cytology Today R31.29 - Other microscopic hematuria Urine Culture Today N39.0 - Urinary tract infection, site not specified AMB Urinalysis Automated Today N13.8 - Other obstructive and reflux uropathy, N40.1 - Benign prostatic hyperplasia with lower urinary tract symptoms AMB Post Void Residual by ultrasound Today N40.1 - Benign prostatic hyperplasia with lower urinary tract symptoms Medications: New sulfamethoxazole-trimethoprim 800-160 mg (Bactrim DS) 1 tab PO BID 10 tabs 0RF 5 days N39.0 - Urinary tract infection, site not specified solifenacin (Vesicare) 5 mg PO DAILY 30 tabs 3RF 30 days Patient Instructions: The patient had an opportunity to ask questions regarding the treatment plan. All questions were answered. Physical exam, labs, and imaging were discussed and reviewed in detail. As well as risks, benefits, and discussion of treatment choices. No major barriers to understanding were identified. The patient expressed understanding and agreement with the above treatment plan. The patient was made aware they should contact our office by phone for worsening of their current condition, the appearance of new symptoms, or with any questions or concerns. Compliance is encouraged with any medications and follow up testing that is ordered. It is a privilege to be allowed the opportunity to participate in? your urological care.? Again, if you have any questions or concerns If you have any questions or concerns please do not hesitate to contact me. The office is [phone]. This note is constructed using voice recognition software. While every effort has been made to ensure accuracy lease picker errors may have been included. Yours sincerely, YESENIA Sun-MAXIMUS Coding Level of Care Code New Pt Level 4 (47871) Diagnoses Frequency of urination R35.0 Increased frequency of urination R35.0 Nocturia R35.1 CPT Codes Post Residual Void - PVR CPT Code: 99989-Bjjk Void Residual by ultrasound ([id number])
--- OUTSIDE RECORDS SUMMARY | 2025-07-18 17:37 | XMS_ITS | Clinical Summary ---
Author Organization [facility] Address [address] [facility] [address] [place] [address] Phone Care Team Providers Care It Security Consultant Name Role Phone Unavailable Primary Care Provider [...] 100 UNIT/ML injection 1 Active Ultracare Pen [place] 32G X 4 MM [facility] [place] DIRECTED ONCE DAILY 1 Active ipratropium-alb uterol [...] of chronic obstructive pulmon khalida disease 08/22/2021 Xnmdv-gw-ohpdgwt respiratory failure 08/22/2021 Anxiety 08/22/2021 Asthma 08/22/2021 [...] Phone Billing Address Personal/Family Self [address] ([id number]) [facility] ([id number])
--- OUTSIDE RECORDS SUMMARY | 2025-07-18 17:37 | XMS_ITS | Data Portability ---
Author Organization [place] [facility] Address [address] [place] [address] Care Team Providers Care Mobile Practice Lead Name Role Phone DANISHADAJADelaney Primary Care Provider Assessment Encounter Date Assessment Date Assessment LastModified by Organization Details LastModified Time 11/20/2020 11/20/2020 PATIENT WAS NOT SEEN- DO NOT BILL [email or web address] Not available 11/20/2020 20:10:36 11/21/2020 11/21/2020 Overview/History : 65[facility]year-[facility] a [facility] medical [facility] significant [...] EMS called, report given, pt transported to [facility] ED for further workup. All questions answered [...] after care of this patient according to [facility]'s infection prevention protocols. Time On Scene with Patient: 00:34:41 [email or web address] Not available 11/21/2020 13:10:17 Plan of Treatment [...] By Organization Details Last Modified Time 11/21/2020 [id number] Pt->ED [email or web address] Not available 11/21 12:51:59 Reason for Referral None Reported. Procedures Surgical History Date Name Laterality Status Provider Name and Address Organization Details Recorded Time 11/22/19 21 Medication Review completed Raquel Davidson NP [address], [place], [address], [place] [facility] 11/21/2020 12:51:46 Imaging Results None recorded. Procedure Notes None recorded. Medical Equipment None Reported. Allergies Allergen ID Allergen Name Allergen Category Reaction Reaction Severity Criticality Documentation Date Start Date Code Code System Note Provider Name and Address Organization Details Recorded Time 897523 Risperdal medicatio n Not available Not available Not available 11/21/2020 39997 8 RxNorm Raquel aDvidson NP [address] [facility] [place], [address], [place] [facility] 1 11:06:41 521788 Xanax medicatio n Not available Not available Not available 11/21/202060470 3 RxNorm Raquel Davidson, [employer] [address], [place], [address], [place] [facility] 1 11:06:46 863711 Ultram medicatio n Not available Not available Not available 11/21/2020 27162 6 RxNorm Raquel Davidson, [employer]TER CASE MANAGER [address], [facility] [place], [address], [place] [facility] 11:18:21 [...] Vitals Date Recorded Heart rate Oxygen saturation Inhaled oxygen flow rate Respiratory rate Body temperature Provider Name and Address Organization Details Last Updated DateTime 110 /min 82 % 5 L/min 20 /min 97.3 [degF] Not Available [facility] 11:13:12 Social History Question Answer Notes LastModified by Organizat ion Details LastModified Time Tobacco Smoking Status Never Smoker Raquel Davidson NP [address] [place], [address], [place] [facility] 11/21/2020 11:07:32 What Is Your Code Status? Full Code [email or web address] Information not available 11/21/2020 Within The Past 12 Months, Has It Happened That The Food You Bought Just Didn't Last And You Didn't Have Money To Get More. No [email or web address] Information not available 11/21/2020 Within The Past 12 Months, Have You Worried That Your Food Would Run Out Before You Got Money To Buy More. No [email or web address] Information not available 11/21/2020 Fall Risk: Do You Feel Unsteady When Standing Or Walking? Yes [email or web address] Information not available 11/21/2020 We Know That How And When People Interact With Friends And Family Can Be Very Different From Person To Person. How Often Do You Have The Opportunity To See Or Talk To People That You Care About And Feel Close To? (Ex: Talking To Friends On The Phone Or Visiting Friends Or Family Or Going To [employer] Or Club Meetings) 5 Or More Times Per Week [email or web address] Information not available 11/21/2020 We Know From Many Of Our Patients That Covering All Of Their Costs Can Be Difficult At Times. This Can Cause Stress And Impact Health. In The Past Year, Have You Been Unable To Get Any Of The Following When It Was Really Needed? No [email or web address] Information not available 11/21/2020 What Is Your Housing Situation Today? I Have Housing Information not available 11/21/2020 Would You Like Help Connecting To Resources? None [email or web address] Information not available 11/21/2020 Sex: Unknown Functional Status None recorded. Mental Status None recorded. Family History Relationship Description Onset Age of this Age Resolved Age Notes LastModified by Organization Details LastModified Time Brother Diabetes mellitus [email or web address] Not available 2020 12:54:16 Medical History Condition Response Coronary Artery Disease Y Depression N COPD Y Cancer N Stroke N High Cholesterol Y Kidney Disease N Diabetes Y Asthma N Pulmonary Embolism N Hypertension Y Gynecological HistoryNo gynecological history recorded. Obstetrics History GPAL:G 0 P 0 0 0 0 Past Encounters Encounter ID Performer Location Encounter Start Date Encounter Closed Date Diagnosis/Indication Diagnosis SNOMED-CT Code Diagnosis ICD10 Code Diagnosis IMO Codes Diagnosis Note [id number] NATHALIA FERNANDEZ NP [facility] [address] [place] [address] 11/20/2020 16:59:20 11/21/2020 10:51:30 [id number] Raquel Davidson NP [facility] [address] [place] [address] 11/21/2020 10:51:54 11/22/2020 15:24:04 Hypoxia 195439947 R09.02 Tachycardia 6571317 R00. 0 Chronic ob structive pulmonary disease 01115578 J44.9 Diabetes mellitus 825140 09 E11.9 Pain in right arm 163913 004 M79.601 Pain in left knee 144532 5359 06551 M25.562 Health Concerns Section Related Observation LastModified by Organization Detai ls LastModified Time None Recorded Concern Status LastModified by Organization Details LastModified Time None Recorded Advance Directives Directive None Recorded Payers Insurance Date Sequence Insurance Name Policy Number Policy Guajardo Covered Member ID Guajardo Member ID Guarantor Name 11/20/2020 1 [facility] - DOS PRIOR TO 2022 - DUAL ELIGIBLE (MEDICARE REPLACEMENT/ADV ANTAGE - HMO) Celi Munoz [id number] Celi Appleedo 11/20/2020 2 [place] [employer] Celi Appleedo [id number] Celi Appleedo 11/20/2020 2 [place] [facility] Celi Appleedo [id number] Celi Appleedo 11/20/2020 1 *SELF PAY* Celi Munoz [id number] Celi Appleedo 11/20/2020 1 [facility] - DOS PRIOR TO 2022 - DUAL ELIGIBLE (MEDICARE REPLACEMENT/ADV ANTAGE - HMO) Celi Appleedo [id number] Celi Appleedo 11/22/2020 2 [place] [facility] Celi Appleedo [id number] Celi Munoz Notes Date Note Type Note Provider Name and Address Organization Details Recorded Time 11/20/2020 text/html PATIENT WAS NOT SEEN- DO NOT BILL NATHALIA FERNANDEZ, SILVIA [address], [place], [address], [place] [facility] 11/20/2020 20:10:45 11/21/2020 text/html [...] spouse. Raquel Davidson NP [address], [place], [address], [place] [facility] 11/21/2020 13:10:56 OBGyn Episode No OBEpisode recorded.
--- OUTSIDE RECORDS SUMMARY | 2025-07-18 17:38 | XMS_ITS | Data Portability ---
Author Organization [place] [facility] Address [address] [place] [address] Care Team Providers Care Technical Writer And Editor Name Role Phone [facility] Primary Care Provider Assessment No assessment recorded. Plan of Treatment Reminders Order Date Submit Date Provider Last Modified By Organization Details Last Modified Time Details Appointments None recorded. Lab rapid SARS CoV 2 Ag, QL [place], respiratory specimen [address], [address] 4 20:00:50 rapid flu (A+B) [address], [address] 4 20:01:14 Referral None recorded. Procedures None recorded. Surgeries None recorded. Imaging None recorded. Medication Orders furosemide 20 mg tablet 2023 024 [email or web address] Not available 4 19:26:41 Patient TargetsNo [...] Available No t Available Comfort EZ Pen [place] 32 gauge x 5/32 active Not Available Not Available Not Available Comfort EZ Pen [place] 33 gauge x 5/32 active Not Available [...] t Available Vitals Date Recorded Oxygen saturation Inhaled oxygen flow rate Body weight Body temperature Heart rate Respiratory rate Systolic And Diastolic Provider Name and Address Organization Details Last Updated DateTime 4 95 % 4 L/min 655175. 08 g 98.7 [degF] 110 /min 20 /min 142/98 mm[Hg] Not Available [facility] - production 4 13:14:06 Date Recorded Heart rate Body height Body temperature Body weight Respiratory rate Oxygen saturation Inhaled oxygen flow rate Systolic And Diastolic Provider Name and Address Organization Details Last Updated DateTime 4 100 /min 175.26 cm 98.8 [degF] 690172. 368 g 21 /min 94 % 4 L/min 124/70 mm[Hg] Not Available [facility] production 18:36:56 [...] ICD10 Code Diagnosis IMO Codes Diagnosis Note [id number] Haris Booth MD Main - [address] [address] 09/04/2023 13:14:04 09/04/2023 21:49:51 Dyspnea 437112814 R06.00 COVID/Flu negative. Given poor breath sounds, increased RR, increased pulse and needing 4L of O2 for breathing (slighlty above baseline per patient), will send to ED. Patient agrees. [id number] Rick Mcmillan MD Main - [address] [address] 12/12/2023 18:36:44 12/13/2023 12:03:31 Bilateral lower limb edema 888335086 R60.0 Patient reports increase in lower extremity edema despite taking her torsemide as prescribed . Reports that she just completed treatment with antibiotic s for infection of LE. Per cylindrical mixer, legs symmetrica lly swollen but also reports [...] Member ID Guajardo Member ID Guarantor Name 02/19/2024 1 [facility] - DOS ON OR AFTER 2022 - DUAL ELIGIBLE - CORRECTION OPTIONS AND ONE CARE (MEDICARE REPLACEMENT/ADV ANTAGE - HMO) Celi Munoz [id number] Celi Munoz Notes Date Note Type Note Provider Name and Address Organization Details Recorded Time 09/04/2023 text/html ROS as noted in the HPI HPI: Weakness, fatigue, coughing, fever, does not want to spend the day at the ER as well as congestion. very weak/lethargy/diff iculty coordinating thoughts/fever/cou ghing/SOB Lives alone- PMH: DM, COPD/asthma/HF/chr onic resp failure/hypoxia/me eric impairment Allergies: Risperdal, Ultram, Xanax no cell phone listed. Logan JOY .................. .................. .................. .................. .................. .................. .................. ............... [facility] Nurse Triage Notes (Ayana Westfall): Comments: Spoke with [facility] Nurse and all symptoms reported by her 67 year old member who c/o feeling very weak/lethargy/diff iculty coordinating thoughts/fever/cou ghing/SOB Lives alone- PMH: DM, COPD/asthma/HF/chr onic resp failure/hypoxia/me eric impairment Allergies: Risperdal, Ultram, Xanax no cell phone listed. Logan JOY .................. .................. .................. .................. .................. .................. .................. ............... [employer] Service Technician Note From Fernando Seaman: Pt co cough with production brown in color with fever earlier in the day, took Tylenol. Did updraft and used inhaler. Denies cp dizziness nausea or vomiting. Baseline vitals assessed. Lungs sounds rhonchi throughout. Pt overall did not look well. Pt was having shortness of breath while speaking. Pt seemed to have some confusion. Covid and flu swab negative. [facility] contacted and advised pt to go to ER. 911 called pt transported to [facility] by [facility] and [facility]. .................. .................. .................. .................. .................. .................. .................. ............... Disposition: Fulfilled Haris Booth MD [address] [place] [address],[address], [place], [address], [facility] 09/04/2023 17:34:04 12/12/2023 text/html [facility] Nurse Triage [...] .................. .................. .................. .................. .................. .................. ............... [employer] Field Service Technician Note From Claritza Rueda: Pt complaint of lower extremity edema, new acute 7/10 level of pain. Pt state she feels her chf has exacerbated.Pt denies NVD, sob, cp as well as blurred vision and pain throughout rest of body. Pt states she has taken her w ater pill as prescribed with no relief of symptoms.Non [...] .................. .................. .................. .................. ............... Disposition: Fulfilled Rick Mcmillan MD [address] [facility],[address], [place], [address], [facility] 12/12/2023 19:26:53 OBGyn Episode No OBEpisode recorded.
== END 2025-07-18 14:46 | disposition home or self-care (01) ==
LOC: HO.HUSH 14:08
PROVIDERS: PCP Internal Medicine; Visit Provider Nurse Practitioner Family
DX: R35.0 Frequency of micturition (principal); R35.1 Nocturia; N40.1 Benign prostatic hyperplasia with lower urinary tract symptoms; N13.8 Other obstructive and reflux uropathy
CPT/HCPCS: 99204

== ENCOUNTER 2025-07-18 14:08 | Outpatient (REF) | payer OTHER, SELFPAY | END 2025-07-18 14:09 | disposition home or self-care (01) | LOC: HO.LAB 14:08 | PROVIDERS: PCP Internal Medicine; Visit Provider Nurse Practitioner Family | DX: R35.0 Frequency of micturition (principal); R35.1 Nocturia; R31.29 Other microscopic hematuria; N39.0 Urinary tract infection, site not specified | CPT/HCPCS: 87086; 87088; 87186; 88112 ==